=== PATIENT | female | born 1940 | race Caucasian/White ===

== ENCOUNTER → 2017-11-04 17:12 | Outpatient (CLI) | payer MEDICARE, OTHER, SELFPAY | PROVIDERS: Family Provider Family Medicine; PCP Family Medicine; Visit Provider Nurse Practitioner Women's Health | DX: N89.8 Other specified noninflammatory disorders of vagina (principal); N94.9 Unspecified condition associated with female genital organs and menstrual cycle | CPT/HCPCS: 87086; 87088; 87186 ==

== ENCOUNTER → 2017-11-26 09:52 | Outpatient (CLI) | payer MEDICARE, OTHER, SELFPAY ==
--- NOTE | 2017-11-26 09:52 | DT_ITS ---
This patient was seen during an EMR downtime November 23, 2017 - November 30, 2017. This patient may have a combination of paper and electronic documentation or all paper documentation. All documentation is viewable within the e-chart portion of [facility] for each patient visit.
== END ==
PROVIDERS: Family Provider Family Medicine; PCP Family Medicine; Visit Provider Nurse Practitioner Women's Health
DX: N39.0 Urinary tract infection, site not specified (principal)
CPT/HCPCS: 87086; 87088

== ENCOUNTER → 2017-12-02 11:19 | Outpatient (CLI) | payer MEDICARE, OTHER, SELFPAY | PROVIDERS: Visit Provider Nurse Practitioner Women's Health | DX: R10.2 Pelvic and perineal pain (principal) | CPT/HCPCS: 87086; 87088 ==

== ENCOUNTER → 2017-12-07 13:03 | Outpatient (CLI) | payer MEDICARE, OTHER, SELFPAY ==
--- NOTE | 2017-12-07 13:04 | US_ITS ---
STUDY: ULTRASOUND TRANSVAGINAL CLINICAL: Female, 77 years old. Pelvic pain, recent chronic urinary tract infections, pessary placement. Postmenopausal. TECHNIQUE: Transabdominal and transvaginal pelvic ultrasound. COMPARISON: None. FINDINGS: The transvaginal scan is partially obscured by the pessary. The uterus is retroverted, measures 6.9 x 4.4 x 5.0 cm, with 2 suspected small fibroid measuring 2.9 and 3.2 cm respectively. Endometrium 4 mm maximum thickness, normal echotexture. No suspicious features. Normal cervix. Right ovary 28 x 24 x 15 mm, appropriate vascular flow. Right ovarian simple appearing follicular cyst measuring 18 x 12 x 12 mm. No right adnexal mass, suspicious cyst, or free fluid. The left ovary measures 32 x 30 x 21 mm, normal echotexture with appropriate Doppler flow. No left adnexal mass, suspicious cyst or free fluid. No cul-de-sac free fluid. US/Pelvic (Non ) IMPRESSION: Small uterine fibroids. Normal endometrium. 18 x 12 mm follicular right ovarian cyst with simple cystic features. Atypical for the patient's age but with indolent features. Surveillance imaging would be appropriate, follow-up transabdominal ultrasound 3 months initially. No other acute intra-abdominal process is evident. Electronically Signed: Andres Hua, at 15:44 EDT Tel , Service support ,
--- NOTE | 2017-12-07 13:04 | US_ITS ---
STUDY: ULTRASOUND TRANSVAGINAL CLINICAL: Female, 77 years old. Pelvic pain, recent chronic urinary tract infections, pessary placement. Postmenopausal. TECHNIQUE: Transabdominal and transvaginal pelvic ultrasound. COMPARISON: None. FINDINGS: The transvaginal scan is partially obscured by the pessary. The uterus is retroverted, measures 6.9 x 4.4 x 5.0 cm, with 2 suspected small fibroid measuring 2.9 and 3.2 cm respectively. Endometrium 4 mm maximum thickness, normal echotexture. No suspicious features. Normal cervix. Right ovary 28 x 24 x 15 mm, appropriate vascular flow. Right ovarian simple appearing follicular cyst measuring 18 x 12 x 12 mm. No right adnexal mass, suspicious cyst, or free fluid. The left ovary measures 32 x 30 x 21 mm, normal echotexture with appropriate Doppler flow. No left adnexal mass, suspicious cyst or free fluid. No cul-de-sac free fluid. US/Transvaginal Non- IMPRESSION: Small uterine fibroids. Normal endometrium. 18 x 12 mm follicular right ovarian cyst with simple cystic features. Atypical for the patient's age but with indolent features. Surveillance imaging would be appropriate, follow-up transabdominal ultrasound 3 months initially. No other acute intra-abdominal process is evident. Electronically Signed: Andres Hua, at 15:44 EDT Tel , Service support ,
== END ==
PROVIDERS: Family Provider Family Medicine; PCP Family Medicine; Visit Provider Nurse Practitioner Women's Health
DX: R10.2 Pelvic and perineal pain (principal); Z92.89 Personal history of other medical treatment
CPT/HCPCS: 76830; 76856

== ENCOUNTER → 2018-01-12 16:31 | Outpatient (CLI) | payer MEDICARE, OTHER, SELFPAY | PROVIDERS: Family Provider Family Medicine; PCP Family Medicine; Visit Provider Obstetrics & Gynecology | DX: R10.2 Pelvic and perineal pain (principal); G89.29 Other chronic pain | CPT/HCPCS: 87086; 87088 ==

== ENCOUNTER → 2018-01-29 07:30 | Outpatient (CLI) | payer MEDICARE, OTHER, SELFPAY ==
--- NOTE | 2018-01-29 07:33 | US_ITS ---
STUDY: ULTRASOUND OF THE FEMALE PELVIS - COMPLETE REASON FOR EXAM: Female, 77 years old. Ovarian cyst TECHNIQUE: Transabdominal and Transvaginal TECHNICAL QUALITY: Adequate. COMPARISON: None. FINDINGS: The uterus is retroflexed and is in a midline position. The uterus measures 7.6 x 6.2 x 4.5 cm. There is a tiny nabothian cyst. The endometrium measures 2.5 mm in thickness, and is hyperechoic. There is no demonstrated endometrial mass. There are at least 2 hypoechoic lesions within the anterior uterine body measuring up to 2.3 cm. No I.U.D. - The right ovary is visualized. The right ovary measures 2.3 x 2.4 x 1.8 cm. There is a 1.4 cm anechoic lesion associated with the right ovary. There is also a 4 mm calculus within the ovary. There is normal arterial and normal venous vascularity. The left ovary is not visualized. No left adnexal mass. There is no fluid in the cul-de-sac. The pre void volume of the bladder was 337 ml. Polycystic ovary disease: No. US/Transvaginal Non- IMPRESSION: 1. Intramural fibroids of the anterior uterine body wall measuring up to 2.3 cm. 2. 1.9 cm simple appearing right ovarian cyst. 3. 4 mm calcification within the right ovary. Electronically Signed: Christiano Ziegler MD at 1:06 EDT Tel , Service support ,
--- NOTE | 2018-01-29 07:33 | US_ITS ---
STUDY: ULTRASOUND OF THE FEMALE PELVIS - COMPLETE REASON FOR EXAM: Female, 77 years old. Ovarian cyst TECHNIQUE: Transabdominal and Transvaginal TECHNICAL QUALITY: Adequate. COMPARISON: None. FINDINGS: The uterus is retroflexed and is in a midline position. The uterus measures 7.6 x 6.2 x 4.5 cm. There is a tiny nabothian cyst. The endometrium measures 2.5 mm in thickness, and is hyperechoic. There is no demonstrated endometrial mass. There are at least 2 hypoechoic lesions within the anterior uterine body measuring up to 2.3 cm. No I.U.D. - The right ovary is visualized. The right ovary measures 2.3 x 2.4 x 1.8 cm. There is a 1.4 cm anechoic lesion associated with the right ovary. There is also a 4 mm calculus within the ovary. There is normal arterial and normal venous vascularity. The left ovary is not visualized. No left adnexal mass. There is no fluid in the cul-de-sac. The pre void volume of the bladder was 337 ml. Polycystic ovary disease: No. US/Pelvic (Non ) IMPRESSION: 1. Intramural fibroids of the anterior uterine body wall measuring up to 2.3 cm. 2. 1.9 cm simple appearing right ovarian cyst. 3. 4 mm calcification within the right ovary. Electronically Signed: Christiano Ziegler MD at 1:06 EDT Tel , Service support ,
== END ==
PROVIDERS: Family Provider Family Medicine; PCP Family Medicine; Visit Provider Obstetrics & Gynecology
DX: N83.209 Unspecified ovarian cyst, unspecified side (principal)
CPT/HCPCS: 76830; 76856

== ENCOUNTER 2018-06-09 14:17 | Inpatient (IN) | payer MEDICARE, OTHER, SELFPAY ==
--- NOTE | 2018-06-02 10:14 | RAD_ITS ---
STUDY: X-RAY CHEST REASON FOR EXAM: Female, 77 years old. Preoperative evaluation. TECHNIQUE: PA and lateral views of the chest. COMPARISON: None. FINDINGS: Hyperinflation. There is no demonstrated pleural abnormality. Normal size heart. Normal mediastinum and hailey. Normal visualized pulmonary arteries. There is atherosclerotic calcification of the aortic arch with tortuosity. There is demineralization of the osseous structures. Normal visualized ribs, clavicles, and shoulders. There is no demonstrated abnormality of the visualized soft tissue structures of the upper abdomen. RAD/Chest PA and Lateral IMPRESSION: Hyperinflation. Electronically Signed: Niko Carrasquillo MD at 10:30 EST Tel [phone], Service support ,
--- NOTE | 2018-06-02 10:17 | EKG12_ITS ---
Test Reason : PRE-OP Blood Pressure : / mmHG Vent. Rate : 063 BPM Atrial Rate : 063 BPM P-R Int : 180 ms QRS Dur : 094 ms QT Int : 394 ms P-R-T Axes : 022 -35 -01 degrees QTc Int : 403 ms Sinus rhythm with Premature supraventricular complexes Left axis deviation Incomplete right bundle branch block Abnormal ECG Confirmed by REGLA ALEJO, CONNOR ([id number]), editor managing newspaper RIKKI FRENCH ([id number]) on 06/04/2018 9:56:15 AM Referred By: Elis Carrero Confirmed By:CONNOR ARAUZ MD
[2018-06-02 11:23] LABS: Hemoglobin 13.5 g/dl (12.0-15.0); Mean Corp Hgb Conc 32.9 g/gl (32-36); Mean Corpuscular Hgb 30.5 pg (27.0-32.0); Mean Corpuscular Volume 92.8 fL (81-99); Mean Platelet Vol. 11.7 fl (6.2-12.0); Platelet Count 205 K/mm3 (150-450); RBC Distribution Width SD 45.9 fl (35.1-43.9); Red Blood Count 4.42 M/mm3 (4.2-5.4); White Blood Count 3.7 K/mm3 (4.4-11.0)
[2018-06-02 11:23] LABS: Color, Urine SEE COMMENT BELOW (Yellow); Glucose, Dipstick Normal (Normal); Ketone-Dipstick Negative (Negative); Leukocyte Esterase-Dipstick Negative /ul (Negative); Nitrite-Dipstick Negative (Negative); Occult Blood-Urine Negative /ul (Negative); Protein-Dipstick Negative (Negative); Urine Bilirubin Dipstick Negative (Negative); Urine Clarity Clear (Clear); Urine Urobilinogen Normal (Normal); Urine pH 6.5 (5.0 - 8.0)
[2018-06-02 11:26] LABS: Scan Indicated on CBC? Y/N NO
[2018-06-02 11:49] LABS: Anion Gap 4 (5-15); BUN 15 mg/dL (7-18); BUN/Creat Ratio 21.8 RATIO (10-20); Calcium,Total 8.9 mg/dL (8.5-10.1); Chloride 106 mmol/L (98-107); Creatinine, Serum 0.69 mg/dL (0.55-1.02); EST Glomerular Filtration Rate 88 mL/min (>60); Est Glom Filt Rate - Afr Amer 107 mL/min (>60); Glucose 86 mg/dL (74-106); Potassium 3.7 mmol/L (3.5-5.1); Sodium Level 139 mmol/L (136-145)
[2018-06-03 10:30] VITALS: BMI 28.8
[2018-06-08] VITALS (15 sets, daily range): BP systolic 84–140; BP diastolic 57–79; PULSE 65–84; RESP 14–18; TEMP 36.2–37.1; O2SAT 92–100; BMI 28.0; BMI 27.8
[2018-06-08] MEDS: Phenazopyridine 95 MG Tablet 190 MG PO (06:28)
[2018-06-08] MEDS: Ciprofloxacin 400 MG/200 ML BAG 200 MG IV (06:45)
--- NOTE | 2018-06-08 07:30 | UT_PTH ---
PATIENT: CLAIRE HEADLEY LOC: MS2 U#:[id number] AGE/SX: 77/F ROOM: [facility] [place] RE06/09/[address]: Dr. Elis Carrero MD : [id number] BED: 1 DIS: 06/10/2018 SPEC #: [id number] RECD: 06/08/18 15:05 STATUS: MEENAKSHI REQ #: [id number] CARLA: 06/08/18 07:[address]: Lizbeth Bill DEPT: SURGICAL PATHOLOGY RECD BY: Aramis Julien ENTERED: 06/09/18 10:10 SP TYPE: UTERUS OTHR DR: DO Dr. Elis Batista MD Dr. Sharon Marcanthony, MD Tissues: Uterus, NOS Procedures: Surgery Specimen Level V Comments: @ Ordering doctor for SUV edited from to @ by RGOOD at 06/09/18 1435 @ Submitting doctor edited from to @ by RGOOD at 06/09/18 1435 HEADER OPERATION: Hysterectomy, vaginal, total, bilateral salpingo-oophorectomy PRE-OP DIAGNOSIS: Cystocele midline; incomplete ureterovaginal prolapse; right ovarian cyst; rectocele; postmenopausal atrophic vaginitis; lower abdominal pain; atrophy of vulva; retention of urine TISSUE SUBMITTED: Uterus, ovaries, fallopian tubes MICROSCOPIC DIAGNOSIS Uterus, hysterectomy: Cervix - nabothian cysts and mild chronic inflammation. Endometrium - inactive with cystic change. Myometrium - extensive adenomyosis and leiomyomas with degenerative change. Right and left fallopian tubes - no pathologic change. 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 AM:taras 06/10/18 COMMENT Case has been reviewed in consultation with Dr. Arboleda who concurs with the above diagnosis. IDC:SJ MICROSCOPIC DESCRIPTION Slides are reviewed. GROSS DESCRIPTION Received in fixative is one container labeled with the patient's name and designated uterus, ovaries, fallopian tubes. The specimen consists of a hysterectomy specimen consisting of uterus with cervix, detached bilateral fallopian tubes and detached bilateral ovaries. The uterus with cervix weighs 88 gm and measures 10 x 5 x 5 cm. The body of the uterus is deformed. The serosal surface is horner, glistening. The ectocervical mucosa is unremarkable. The external os is circular in contour. The endocervical canal measures 2.5 cm in length and the endocervical mucosa is horner, glistening and unremarkable. The endometrial cavity is compressed to one side and measures 3.5 cm in length and up to 0.5 cm in width. The endometrium is without any mass lesion and measures <0.1 cm in thickness. Most of the endometrial cavity appears to be completely obliterated. Sections of the myometrial wall reveal multiple ill-defined nodular masses suspicious for adenomyosis and a few well-defined nodular masses with the largest mass measuring 1 cm in greatest dimension. The bilateral fallopian tubes are not identified as right or left and measures 3.5 cm in length and 0.5 cm in diameter and 2 cm in length and 0.5 cm in diameter. The fimbrial end is identified. The detached bilateral ovaries are not identified as right or left and measures 2.5 x 1 x 1 cm and 4.5 x 2 x 1.5 cm. Both ovaries show suture material. Sections of the smaller ovary do not reveal any mass lesion. Sections of the larger ovary show it is completely replaced by a hemorrhagic cyst. Housing Director sections are submitted in 12 cassettes as follows: 1 - anterior cervix, 2 - posterior cervix, 3 & 4 - anterior uterine wall, 5 & 6 - posterior uterine wall, sections of the uterine wall also contain ill-defined nodular masses, 7 - well-defined nodular masses, 8 & 9 - bilateral fallopian tubes with each cassette contain one fallopian tube, entirely submitted, 10 - smaller ovary, entirely submitted, 11 & 12 - larger ovary. / CARMEN:taras 06/09/18 TC:1 CPT: 09942
--- NOTE | 2018-06-08 07:37 | PCM.OPRPT ---
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 pyridium given and discussed avoidance of foods (4) Atrophic vaginitis Status: Chronic Comment: has used vaginal estrogen in past. 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 Comment: hyst scheduled with radha Report of Operation Date of Procedure: 06/08/18 Pre-Operative Diagnosis: prolapse Post-Operative Diagnosis: same Surgery/Procedure Performed:: tvh bso Description of Surgical Findings:: cystocele rectocele microelectronics engineer: Juan Frances microelectronics engineer: Elis Garcia Type of Anesthesia:: General Special Medications: gurvinder Specimen's removed: uterus tubes ovaries Drains: jackson Estimated Blood Loss (mL): 100 Fluids Replaced: crystalloid Description of Procedure: Patient was taken to the operating room and was placed under general anesthesia was prepped and draped in normal sterile fashion in the dorsal lithotomy position. Preoperative antibiotics and SCDs. Weighted speculum was placed in the vagina and the anterior and posterior lip of the cervix was grasped with 2 Logan clamps and circumferentially injected with dilute vasopressin. A circumferential incision was made with a scalpel and the posterior cul-de-sac was entered into sharply and a longneck speculum was placed. The anterior cul-de-sac was also dissected down and entered into sharply and the uterosacral ligaments were clamped cut and suture ligated bilaterally followed by the cardinal ligaments which were Clamped cut and suture ligated bilaterally with 0 Monocryl. The uterus serially descended and progressive bites were taken bilaterally up to the level of the utero-ovarian ligament bilaterally which was clamped transected and double ligated with 0 Monocryl suture and 0 Vicryl free tie. jackson catheter was placed in the bladder and orange colored urine was noted in the tubing without any air or blood present. Bilateral fallopian tubes and ovaries were well visualized and noted be within normal limits and the bilateral fallopian tubes and ovaries were transected across the base of the infundibulopelvic ligaments with a Cristal clamp and removed and sutured with 0 Vicryl suture. a raw appearance to the bladder was noted and it was treated with gurvinder. The vagina was closed with [id number] 0 Vicryl pop offs including the posterior and anterior peritoneum in the reapproximation. Excellent hemostasis was noted. Please see additional operative note by Dr. garcia for any additional surgery details. Grafts/Implants Used: none - Complications none - Admit VTE Documentation VTE Present on Admission: No VTE Mechan Device Prophylaxis: SCD's
--- NOTE | 2018-06-08 07:43 | OP.PCM_ITS ---
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 pyridium given and discussed avoidance of foods (4) Atrophic vaginitis Status: Chronic Comment: has used vaginal estrogen in past. 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 Comment: hyst scheduled with radha Report of Operation Date of Procedure: 06/08/18 Pre-Operative Diagnosis: prolapse Post-Operative Diagnosis: same Surgery/Procedure Performed:: tvh bso Description of Surgical Findings:: cystocele rectocele insurance sales producer: Juan Frances insurance sales producer: Elis Garcia Type of Anesthesia:: General Special Medications: gurvinder Specimen's removed: uterus tubes ovaries Drains: jackson Estimated Blood Loss (mL): 100 Fluids Replaced: crystalloid Description of Procedure: Patient was taken to the operating room and was placed under general anesthesia was prepped and draped in normal sterile fashion in the dorsal lithotomy position. Preoperative antibiotics and SCDs. Weighted speculum was placed in the vagina and the anterior and posterior lip of the cervix was grasped with 2 Logan clamps and circumferentially injected with dilute vasopressin. A circumferential incision was made with a scalpel and the posterior cul-de-sac was entered into sharply and a longneck speculum was placed. The anterior cul-de-sac was also dissected down and entered into sharply and the uterosacral ligaments were clamped cut and suture ligated bilaterally followed by the cardinal ligaments which were Clamped cut and suture ligated bilaterally with 0 Monocryl. The uterus serially descended and progressive bites were taken bilaterally up to the level of the utero-ovarian ligament bilaterally which was clamped transected and double ligated with 0 Monocryl suture and 0 Vicryl free tie. jackson catheter was placed in the bladder and orange colored urine was noted in the tubing without any air or blood present. Bilateral fallopian tubes and ovaries were well visualized and noted be within normal limits and the bilateral fallopian tubes and ovaries were transected across the base of the infundibulopelvic ligaments with a Cristal clamp and removed and sutured with 0 Vicryl suture. a raw appearance to the bladder was noted and it was treated with gurvinder. The vagina was closed with [id number] 0 Vicryl pop offs including the posterior and anterior peritoneum in the reapproximation. Excellent hemostasis was noted. Please see additional operative note by Dr. garcia for any additional surgery details. Grafts/Implants Used: none - Complications none - Admit VTE Documentation VTE Present on Admission: No VTE Mechan Device Prophylaxis: SCD's
--- NOTE | 2018-06-08 07:51 | DCINST_ITS ---
Discharge Diet: No Restrictions Discharge Activity: Return to Normal Activity, May Not Drive, May Shower May resume sexual activity in: 6-8 weeks Call your doctor if your incision/area has: Continuous Slow Oozing, Sudden Increased Bleeding, Increased Pain/ Swelling, Increased Redness, Foul Smelling Discharge Call your doctor if you observe: Fever of 101 or Higher, Inability to urinate, Inability to have a bowel movement, Using more than one pad per hour Allergies/Adverse Reactions: Allergies cephalexin [From Keflex] Allergy (Verified 06/01/18 09:56) Swelling cephaeline Adverse Reaction (Unknown, Verified 05/10/18 11:19) did not work Medications to take at Discharge cholecalciferol (vitamin D3) 1,000 unit capsule 1,000 unit PO QDAY 10/14/17 meclizine 25 mg tablet 25 mg PO ONCE PRN 10/14/17 estradiol 0.01% (0.1 mg/gram) vaginal cream 2 g VAGINAL DAILY 03/03/18 Amlodipine Besylate [Norvasc] 5 mg PO QHS 06/01/18 Docusate Sodium [Colace] 100 mg PO QHS 06/01/18 Omeprazole 20 mg PO QHS 06/01/18 Phenazopyridine [Pyridium] 100 mg PO DAILY PRN 06/01/18 Naproxen [Naprosyn] 250 - 500 mg PO Q8H PRN PRN #30 tablet 06/08/18 Oxycodone HCl/Acetaminophen [Percocet 5-325] 1 - 2 tablet PO Q4H PRN PRN 7 Days #15 tablet 06/08/18 valsartan 160 mg-hydrochlorothiazide 12.5 mg tablet 2 tab PO DAILY 06/08/18 The following prescriptions were given: Oxycodone HCl/Acetaminophen [Percocet 5-325] 1 - 2 tablet PO Q4H PRN PRN 7 Days #15 tablet PRN Reason: Pain Naproxen [Naprosyn] 250 - 500 mg PO Q8H PRN PRN #30 tablet PRN Reason: MILD PAIN Primary Care Physician: Jose Rodarte DO [Primary Care Provider] - Test Results: Test results from this visit will be discussed in further detail at your follow- up appointment, if applicable. Please Follow Up With: Lizbeth Bill MD - [phone]
[2018-06-08] MEDS: Lubricating Jelly 60 GM Tube 30 GM TOPICAL (08:00)
[2018-06-08] MEDS: Vasopressin 20 UNITS/ML Vial (10:00)
[2018-06-08] MEDS: Methylene Blue 1% 100 MG/10 ML VIAL (10:28)
[2018-06-08] MEDS: Estrogens,Conj. 1 Tube 1 DOSE (10:38)
--- NOTE | 2018-06-08 11:25 | PCM.IMDPSTOP ---
Immediate Post-Op Note Date of Procedure: 06/08/18 Primary Surgeon/Physician: Elis Carrero MD urban gardening specialist: Svitlana - abigail urban gardening specialist: Juan Frances urban gardening specialist: Lizbeth Bill Pre-Operative Diagnosis: cystocele, rectocele, urethral hypermobility, uterine prolapse. Post-Operative Diagnosis: same Surgery/Procedure Performed:: anterior and posterior repair, right sacrospinous ligament fixation, Altis midurethral sling, cystoscopy. Description of Surgical Findings:: no complications. short vault length at conclusion. bilateral ureteral jets observed, both UO's very small. Estimated Blood Loss: 150cc Specimen's removed: uterus tubes ovaries per Drains: jackson Type of Anesthesia:: General - Admit VTE Documentation VTE Present on Admission: Yes VTE Mechan Device Prophylaxis: SCD's VTE Pharm Prophylaxis ordered?: Yes
--- NOTE | 2018-06-08 11:28 | OP.PN_ITS ---
Immediate Post-Op Note Date of Procedure: 06/08/18 Primary Surgeon/Physician: Elis Carrero MD environmental test technician: Svitlana - abigail environmental test technician: Juan Frances environmental test technician: Lizbeth Bill Pre-Operative Diagnosis: cystocele, rectocele, urethral hypermobility, uterine prolapse. Post-Operative Diagnosis: same Surgery/Procedure Performed:: anterior and posterior repair, right sacrospinous ligament fixation, Altis midurethral sling, cystoscopy. Description of Surgical Findings:: no complications. short vault length at conclusion. bilateral ureteral jets observed, both UO's very small. Estimated Blood Loss: 150cc Specimen's removed: uterus tubes ovaries per Drains: jackson Type of Anesthesia:: General - Admit VTE Documentation VTE Present on Admission: Yes VTE Mechan Device Prophylaxis: SCD's VTE Pharm Prophylaxis ordered?: Yes
--- NOTE | 2018-06-08 12:48 | OP.PCM_ITS ---
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 Post-Operative Diagnosis: same Surgery/Procedure Performed:: anterior and posterior repair, right sacrospinous ligament fixation, Altis midurethral sling, cystoscopy. Description of Surgical Findings:: no complications. short vault length at conclusion. bilateral ureteral jets observed, both UO's very small. tariff supervisor: Lizbeth Bill tariff supervisor: Lizbeth Bill Type of Anesthesia:: General Specimen's removed: uterus tubes ovaries per Drains: jackson Estimated Blood Loss (mL): 150cc Description of Procedure: The patient is a 77-year-old female who presented to the office in search of surgical intervention for her pelvic organ prolapse. All risks benefits and alternatives were discussed. She underwent preoperative testing including cystoscopy and urodynamics in the office. The details of the procedure were discussed and she agreed to proceed. The patient was taken to the operating room and placed on the operating room table. Anesthesia monitored the head, neck, airway, IV access, vital signs throughout the case. Once anesthesia was appropriately administered the patient was prepped and draped in usual sterile fashion. She was in supine dorsal lithotomy and Trendelenburg position. All dependent portions of her body were appropriately padded. The hysterectomy and bilateral salpingo-oophorectomy was performed by Dr. Tray Castellanos. Please see her dictation for full details. Following closure of the vaginal cuff, the case was turned over to me. The patient had an indwelling 16 Polish Jackson catheter in her bladder was empty. The anterior vaginal wall was short in length as was the sterile vaginal wall. I decided to proceed with apical support with sacral spinous ligament fixation in conjunction with the anterior and posterior repairs. A midline incision was made following distention with vasopressin for hydrostatic dissection and hemostatic control. Both sharp and blunt dissection ensued on the right side until the ischial spine was palpable in the sacral spinous ligament was freed from surrounding tissues. The ureter was palpable on the side of the patient's pelvis close to the spine. Care was taken when passing the Capio Ethibond suture to avoid this structure. The Capio suture was then brought out through the apical anterior vaginal wall. The anterior defect was closed in 2 layers with 2-0 vicryl interrupted sutures in the pubocervical fascia. The midline incision was closed in running interlocking fashion with 2-0 vicryl. Attention was turned to the posterior vaginal wall. It was injected submucosally with vasopressin and both sharp and blunt dissection was used to identify and isolate the rectovaginal fascia bilaterally. This was then brought together and 2 layer closure using 2-0 Vicryl suture. The midline incision was once again closed using running interlocking 2-0 Vicryl. The mid urethra was then identified and submucosally injected. A midline vertical incision approximately 1.5 cm in length was then made and both sharp and blunt dissection was performed bilaterally to open up the periurethral space. Using the trochars the Altis mid urethral sling was inserted without difficulty bilaterally. The sling was flat and had good tissue coaptation without pressure. The midline incision was closed using running interlocking 2-0 Vicryl. The Jackson catheter was removed and a cystourethroscopy was performed. There were no incisions or foreign bodies within the urinary bladder or urethra. There is no mesh within the urinary bladder or urethra. Bilateral ureteral orifices were very extremely small almost pinpoint in size. Ureteral jets with Pyridium stained urine were visualized bilaterally. At this time the scope was removed and the Jackson catheter was reinserted. The vagina was packed with Premarin cream and vaginal packing. The patient was awakened taken to the recovery room in good condition. There were no complications during this procedure. Grafts/Implants Used: Altis midurethral sling - Complications none - Admit VTE Documentation VTE Present on Admission: Yes VTE Mechan Device Prophylaxis: SCD's VTE Pharm Prophylaxis ordered?: Yes
[2018-06-08] MEDS: HYDROmorphone 1 MG/ML Syringe IV (13:53)
[2018-06-08] MEDS: 0.9% NaCl Peripheral Flush Adult/Peds IV ×2 (13:53→17:29)
--- NOTE | 2018-06-08 14:36 | NURSING ---
CONTINUOUS SPO2 APPLIED AT TIME OF ARRIVAL TO UNIT PER THIS RN- DUE TO + STOP SCORE.
[2018-06-08] MEDS: Dextrose 5%-Lactated Ringers 1,000 ML 100 ML IV (15:12)
[2018-06-08] MEDS: Enoxaparin 40 MG/0.4 ML Syringe SC (15:14)
[2018-06-08] MEDS: Ketorolac 15 MG/ML Vial IV (17:28)
[2018-06-08] MEDS: Smz/Tmp Ds Tablet 1 TABLET PO (17:28)
[2018-06-08] MEDS: Losartan Potassium 50 MG Tablet PO (21:19)
[2018-06-08] MEDS: Acetaminophen 500 MG Tablet 1000 MG PO (21:19)
[2018-06-08] MEDS: amLODIPine 5 MG Tablet PO (21:19)
[2018-06-08] MEDS: Docusate Sodium 100 MG Capsule PO (21:19)
[2018-06-08] MEDS: oxyCODONE 5 MG Tablet PO (21:20)
[2018-06-08] MEDS: Pantoprazole Sodium 20 MG Tablet PO (22:20)
[2018-06-09] VITALS (7 sets, daily range): BP systolic 99–120; BP diastolic 60–78; PULSE 70–80; RESP 14–18; TEMP 36.8–36.9; O2SAT 92–96
[2018-06-09] MEDS: Ketorolac 15 MG/ML Vial IV ×5 (00:46→23:23)
[2018-06-09] MEDS: Dextrose 5%-Lactated Ringers 1,000 ML 100 ML IV ×3 (00:48→22:43)
[2018-06-09] MEDS: oxyCODONE 5 MG Tablet PO ×2 (02:55→22:43)
[2018-06-09 06:53] LABS: Hematocrit 32.9 % (37-47); Hemoglobin 10.8 g/dl (12.0-15.0); Mean Corp Hgb Conc 32.8 g/gl (32-36); Mean Corpuscular Hgb 30.4 pg (27.0-32.0); Mean Corpuscular Volume 92.7 fL (81-99); Mean Platelet Vol. 11.8 fl (6.2-12.0); Platelet Count 163 K/mm3 (150-450); RBC Distribution Width CV 13.8 % (11.6-14.6); Red Blood Count 3.55 M/mm3 (4.2-5.4); White Blood Count 6.9 K/mm3 (4.4-11.0)
[2018-06-09 06:56] LABS: Scan Indicated on CBC? Y/N NO
[2018-06-09] MEDS: Smz/Tmp Ds Tablet 1 TABLET PO ×2 (08:21→18:29)
[2018-06-09] MEDS: Enoxaparin 40 MG/0.4 ML Syringe SC (09:55)
[2018-06-09] MEDS: 0.9% NaCl Peripheral Flush Adult/Peds IV ×3 (12:06→18:29)
--- NOTE | 2018-06-09 12:27 | NURSING ---
Julien and packing removed this AM 0600. Intake of PO fluid not adequate. Pt advised to increase PO intake and has been attempting to do so- however, still not able to urinate. Pt has not been able to urinate at this point. Pt also c/o pain to left thigh- states that it is her sciatica and that it flares up on occasion and that in the past it has delayed urination and bowels from moving. Will continue to monitor.
--- NOTE | 2018-06-09 12:38 | PCM.PN.GU ---
Physical Exam Subjective: Sitting up in chair, sipping liquid broth. Was nauseated after breakfast. Hasn't been able to void yet, 5hrs in to her trial of void. Still with lower abdominal discomfort that is likely unrelated to intervention as present for several months. C/O sciatica pain on the left side. No flank pain. - Physical Exam Vital Signs Temp 98.3 F 06/09/18 08:07 Pulse 72 06/09/18 08:07 Resp 18 06/09/18 08:07 BP 99/61 06/09/18 08:07 Pulse Ox 94 06/09/18 08:07 Intake & Output 06/07/18 06/08/18 06/09/18 23:59 23:59 23:59 Intake Total 2608 / 2608 2223 / 2223 Output Total 390 / 390 1000 / 1000 Balance 2218 / 2218 1223 / 1223 Weight: 74.1 kg Intake: Oral 150 / 150 1000 / 1000 IV fluid/meds 2458 / 2458 1223 / 1223 IV #3 2100 / 2100 Output: Urine 390 / 390 1000 / 1000 General: Alert, Oriented x3, Cooperative, No apparent distress HEENT: Atraumatic, Normocephalic Oral: Moist Mucosa Neck: Trachea Midline Lungs: Normal air movement Abdomen: Soft Rectal: Exam deferred Skin: No rashes Neurological: Cranial nerves II-XII grossly intact, Neuro grossly intact Psych/Mental Status: Normal Affect Laboratory Tests Past 24 Hrs 06/09/18 06:28 WBC 6.9 RBC 3.55 L Hgb 10.8 L Hct 32.9 L MCV 92.7 MCH 30.4 MCHC 32.8 RDW 13.8 RDW Differential 45.0 H Plt Count 163 MPV 11.8 Medical Necessity - Tobacco Use Smoking Status: Never smoker Assessment/Plan All Active Problems (Last Reviewed 06/03/18 @ 12:46 by Jose Rodarte, DO) Urethral hypermobility (Acute) Bladder prolapse (Acute) Vaginal pessary in situ (Acute) Bladder scan now, jackson if greater than 250cc. IF needs jackson, will try for trial of void with jackson out tomorrow night. Continue ambulation. Zofran for nausea, home only after tolerating PO appropriately. Keep fluids until tolerating PO.
--- NOTE | 2018-06-09 17:08 | PCM.PN.OB ---
Patient Problems: Active and Suspected Problems (Last Reviewed 06/03/18 @ 12:46 by Jose Rodarte DO) Urethral hypermobility (Acute) Subjective: poatient seen at 8 am - pain controlle dno cp sob nv little po intake - Physical Exam General: Alert, Oriented x3 Vital Signs Temp Pulse Resp BP Pulse Ox 98.3 F 75 14 112/67 92 06/09/18 13:44 06/09/18 13:44 06/09/18 13:44 06/09/18 13:44 06/09/18 13:44 Oxygen Flow Rate (L/min) 2 Oxygen Delivery Method Room Air Weight: 163 lb 5.8 oz Body Mass Index (BMI) 27.8 Intake and Output for Last 24 Hours 06/07/18 06/08/18 06/09/18 23:59 23:59 23:59 Intake Total 2608 / 2608 2223 / 2223 Output Total 390 / 390 1000 / 1000 Balance 2218 / 2218 1223 / 1223 Laboratory Tests Past 24 Hrs 06/09/18 06:28 WBC 6.9 RBC 3.55 L Hgb 10.8 L Hct 32.9 L MCV 92.7 MCH 30.4 MCHC 32.8 RDW 13.8 RDW Differential 45.0 H Plt Count 163 MPV 11.8 Medical Necessity - Tobacco Use Smoking Status: Never smoker Assessment/Plan All Active Problems (Last Reviewed 06/03/18 @ 12:46 by Jose Rodarte DO) Urethral hypermobility (Acute) Bladder prolapse (Acute) Vaginal pessary in situ (Acute) s/p TVH BSO pelvic support repair routine care ambulate, oral pain control bladder restrictions per urogyn
[2018-06-09] MEDS: Docusate Sodium 100 MG Capsule PO (22:44)
[2018-06-09] MEDS: amLODIPine 5 MG Tablet PO (22:44)
[2018-06-09] MEDS: Pantoprazole Sodium 20 MG Tablet PO (22:44)
[2018-06-10 01:42] VITALS: BP 100/63; PULSE 65; RESP 16; TEMP 36.8; O2SAT 97
[2018-06-10 06:08] LABS: Anion Gap 6 (5-15); BUN 7 mg/dL (7-18); BUN/Creat Ratio 9.4 RATIO (10-20); Chloride 107 mmol/L (98-107); Creatinine, Serum 0.75 mg/dL (0.55-1.02); EST Glomerular Filtration Rate 80 mL/min (>60); Est Glom Filt Rate - Afr Amer 97 mL/min (>60); Estimated Creatinine Clearance 41.97 ml/min; Glucose 98 mg/dL (74-106); Potassium 3.3 mmol/L (3.5-5.1); Sodium Level 143 mmol/L (136-145)
[2018-06-10] MEDS: Ketorolac 15 MG/ML Vial IV (06:12)
[2018-06-10] MEDS: 0.9% NaCl Peripheral Flush Adult/Peds IV ×2 (06:13→06:25)
[2018-06-10 06:58] VITALS: O2SAT 97
[2018-06-10 08:55] VITALS: BP 108/67; PULSE 87; RESP 16; TEMP 36.6; O2SAT 92
[2018-06-10] MEDS: Smz/Tmp Ds Tablet 1 TABLET PO (09:12)
[2018-06-10] MEDS: Enoxaparin 40 MG/0.4 ML Syringe SC (09:13)
[2018-06-10] MEDS: Acetaminophen 500 MG Tablet 1000 MG PO (09:21)
--- NOTE | 2018-06-10 11:30 | CASEMGMT ---
EMILY SOLANO ASSESSMENT Face to Face with patient for initial transition planning/care coordination assessment. EMILY SOLANO introduced self and role at [facility]. Pt voices understanding and consents to assessment at this time. Pt resting in bed in no distress at this time. Pt is A/O at this time and answers all questions appropriately. Care providers, pharmacy, and demographics verified/updated at this time. PCP: Jose Rodarte Preferred Pharmacy: [facility], [facility] Retail pharmacy on day of d/c only. Insurance: [employer], Other commercial insurance Prescription Benefit: [employer] Living Will/HPOA: Has both LW and HCPOA, which is her , Chucky Bearden. Living Arrangements: Lives in one story home with her and son, Deo. States one-step to enter. States house has a basement but that she does not go down them. States she is independent with ADL's and home mgmt tasks. Transportation: Pt states drives self and states no transportation concerns at this time. can assist with transportation if needed. DME: has a hand-held shower but no other DME. States she has chronic back problems and feels she would be safer using a walker and states would like to get one. HHC/SNF: Pt has never used HHC or been to a SNF. States has went to [facility] in the past. Pt is interested in HHC. Explained must be homebound and that she would not qualify for HHC d/t she is not homebound. Pt voices understanding and states is interested in going to Out-pt therapy. She states she does not wish to start Out-pt therapy until after her f/u appt w/Dr and has F/C removed. Instructed pt to talk to her doctor @ follow-up appt and to discuss her wishes for Out-pt therapy at that time if she is still interested then. Pt voices understanding. Pt wishes to return home and states has no concerns with going home at time of discharge. CM to follow for any further discharge planning/needs. Pt voices no further concerns/needs at this time. Advised pt to ask for CM if any further questions/concerns/needs arise. Voices understanding. Plan: Home with family support. Rosalva DICKINSON RN, CM
[2018-06-10] MEDS: Ketorolac 10 MG Tablet PO (12:12)
--- NOTE | 2018-06-10 12:38 | PCM.PROGNOTE ---
Patient Problems: Active and Suspected Problems (Last Reviewed 06/03/18 @ 12:46 by Jose Rodarte DO) Urethral hypermobility (Acute) Subjective: Doing well, eating, passing gas, fluids heplocked. Jackson back in, PVR 200cc. Ready to have PT eval for walker at home, then discharge today with jackson to straight drain for trial of void next week. - Physical Exam General: Alert, Oriented x3, Cooperative, No apparent distress HEENT: Atraumatic, Normocephalic Oral: Moist Mucosa Lungs: Clear to auscultation, Normal air movement Cardiovascular: Regular rate Abdomen: Soft Musculoskeletal: No Muscle Wasting Neurological: Cranial nerves II-XII grossly intact, Neuro grossly intact Comment: jackson with yellow urine Vital Signs Temp Pulse Resp BP Pulse Ox 97.8 F 87 16 108/67 92 06/10/18 08:55 06/10/18 08:55 06/10/18 08:55 06/10/18 08:55 06/10/18 08:55 Oxygen Flow Rate (L/min) 2 Oxygen Delivery Method Room Air Weight: 74.1 kg Body Mass Index (BMI) 27.8 Intake and Output for Last 24 Hours 06/08/18 06/09/18 06/10/18 23:59 23:59 23:59 Intake Total 2608 / 2608 3816 / 3816 667.2 / 667.2 Output Total 390 / 390 2300 / 2300 450 / 450 Balance 2218 / 2218 1516 / 1516 217.2 / 217.2 Laboratory Tests Past 24 Hrs 06/10/18 05:37 Sodium 143 Potassium 3.3 L Chloride 107 Carbon Dioxide 30.0 Anion Gap 6 BUN 7 Creatinine 0.75 Estim Creat Clear Calc 41.97 Est GFR (MDRD) Af Amer 97 Est GFR (MDRD) Non-Af 80 BUN/Creatinine Ratio 9.4 L Glucose 98 Calcium 8.0 L Medical Necessity - Tobacco Use Smoking Status: Never smoker Assessment/Plan All Active Problems (Last Reviewed 06/03/18 @ 12:46 by Jose Rodarte DO) Urethral hypermobility (Acute) Bladder prolapse (Acute) Vaginal pessary in situ (Acute) PT eval Home today with jackson teaching. Follow up in office next week.
--- NOTE | 2018-06-10 12:43 | DCINST_ITS ---
Discharge Diet: No Restrictions Discharge Activity: Return to Normal Activity, May Not Drive, May Shower May resume sexual activity in: 6-8 weeks Call your doctor if your incision/area has: Continuous Slow Oozing, Sudden Increased Bleeding, Increased Pain/ Swelling, Increased Redness, Foul Smelling Discharge Call your doctor if you observe: Fever of 101 or Higher, Inability to urinate, Inability to have a bowel movement, Using more than one pad per hour, Shortness of breath, Chest pain, Calf discomfort, Uncontrolled pain Catheter: Julien to leg bag, Julien to large bag, - - home with leg bag and large bag Additional Instructions: continue estrogen cream in vagina on the stitches. Allergies/Adverse Reactions: Allergies cephalexin [From Keflex] Allergy (Verified 06/01/18 09:56) Swelling cephaeline Adverse Reaction (Unknown, Verified 05/10/18 11:19) did not work Medications to take at Discharge cholecalciferol (vitamin D3) 1,000 unit capsule 1,000 unit PO QDAY 10/14/17 meclizine 25 mg tablet 25 mg PO ONCE PRN 10/14/17 estradiol 0.01% (0.1 mg/gram) vaginal cream 2 g VAGINAL DAILY 03/03/18 Amlodipine Besylate [Norvasc] 5 mg PO QHS 06/01/18 Docusate Sodium [Colace] 100 mg PO QHS 06/01/18 Omeprazole 20 mg PO QHS 06/01/18 Phenazopyridine [Pyridium] 100 mg PO DAILY PRN 06/01/18 Naproxen [Naprosyn] 250 - 500 mg PO Q8H PRN PRN #30 tablet 06/08/18 Oxycodone HCl/Acetaminophen [Percocet 5-325] 1 - 2 tablet PO Q4H PRN PRN 7 Days #15 tablet 06/08/18 valsartan 160 mg-hydrochlorothiazide 12.5 mg tablet 2 tab PO DAILY 06/08/18 The following prescriptions were given: Oxycodone HCl/Acetaminophen [Percocet 5-325] 1 - 2 tablet PO Q4H PRN PRN 7 Days #15 tablet PRN Reason: Pain Naproxen [Naprosyn] 250 - 500 mg PO Q8H PRN PRN #30 tablet PRN Reason: MILD PAIN Primary Care Physician: Brown,Jose R, DO [Primary Care Provider] - Test Results: Test results from this visit will be discussed in further detail at your follow- up appointment, if applicable. Please Follow Up With: Elis Carrero MD When: Will need to remove catheter at 10pm on night of 06/16. Call for appt 06/17 Proposed Discharge Date: 06/10/18
--- NOTE | 2018-06-10 13:30 | NURSING ---
called Dr Bill to inform her that Dr Carrero had been by and was D/Cing pt home with renetta. Dr Bill stated that she would be in OR and it was ok to DC pt without her seeing her. no further DC instructions
[2018-06-10 14:00] VITALS: BP 120/73; PULSE 68; RESP 16; TEMP 37.1; O2SAT 96
--- NOTE | 2018-06-10 14:00 | CASEMGMT ---
EMILY CM NOTE: Script obtained from Dr Carrero for kavon and faxed to [facility] [place]. Walker has been delivered to room. Rosalva DICKINSON RN CM
--- OUTSIDE RECORDS SUMMARY | 2018-09-09 11:15 | XMS RPT_ITS ---
:1940 Author Organization [place] Support Name Relationship Address Phone R Unavailable Unavailable Unavailable CHUCKY HEADLEY Unavailable [address] + [place] [address] Ramana HEADLEY Unavailable Unavailable + R Unavailable Unavailable Unavailable CHUCKY HEADLEY Unavailable [address] + [place] [address] Ramana HEADLEY Unavailable Unavailable + R Unavailable Unavailable Unavailable CHUCKY HEADLEY Unavailable [address] + [place] [address] Ramana HEADLEY Unavailable Unavailable + [place] [address] R Unavailable Unavailable Unavailable CHUCKY HEADLEY Unavailable [address] + [place] [address] Ramana HEADLEY Unavailable Unavailable + [place] [address] R Unavailable Unavailable Unavailable CHUCKY HEADLEY Unavailable [address] + [place] [address] Ramana HEADLEY Unavailable Unavailable + [place] [address] R Unavailable Unavailable Unavailable CHUCKY HEADLEY Unavailable [address] + [place] [address] Ramnaa HEADLEY Unavailable . + [place] [address] R Unavailable Unavailable Unavailable CHUCKY HEADLEY Unavailable [address] + [place] [address] Ramana HEADLEY Unavailable Unavailable + [place] [address] SOURAV STEEL Unavailable . + [place] . R Unavailable Unavailable Unavailable CHUCKY HEADLEY Unavailable [address] + [place] [address] MAST, SOURAV Unavailable . + [place], [place] . R Unavailable Unavailable Unavailable HEADLEYCHUCKY Unavailable [address] + [place] [address] MAST, SOURAV Unavailable Unavailable + [place] R Unavailable Unavailable Unavailable CHUCKY HEADLEY Unavailable [address] + [place] [address] MAST, SOURAV Unavailable [address] + [place] [address] R Unavailable Unavailable Unavailable HEADLEYCHUCKY Unavailable [address] + [place] [address] MAST, SOURAV Unavailable [address] + [facility] [place] [address] R Unavailable Unavailable Unavailable HEADLEYCHUCKY Unavailable [address] + [place] [address] MAST, SOURAV Unavailable [address] + [place] [address] R Unavailable Unavailable Unavailable CHUCKY HEADLEY Unavailable [address] + [place] [address] MAST, SOURAV Unavailable Unavailable + [place] [address] R Unavailable Unavailable Unavailable HEADLEYCHUCKY Unavailable [address] + [place] [address] MAST, SOURAV Unavailable Unavailable + [place] [address] R Unavailable Unavailable Unavailable CHUCKY HEADLEY Unavailable [address] + [place] [address] MAST, SOURAV Unavailable . + [place] [address] R Unavailable Unavailable Unavailable HEADLEYCHUCKY Unavailable [address] + [place] [address] MAST, SOURAV Unavailable Unavailable + [place] [address] R Unavailable Unavailable Unavailable HEADLEYCHUCKY Unavailable [address] + [place] [address] MAST, SOURAV Unavailable . + [place] [address] R Unavailable Unavailable Unavailable HEADLEY, CHUCKY Unavailable [address] + [place] [address] MAST, SOURAV Unavailable Unavailable + R Unavailable Unavailable Unavailable HEADLEY, CHUCKY Unavailable [address] + [place] [address] MAST, SOURAV Unavailable . + ., [place] . R Unavailable Unavailable Unavailable HEADLEY, CHUCKY Unavailable [address] + [place] [address] MAST, SOURAV Unavailable . + ., [place] . R Unavailable Unavailable Unavailable HEADLEY, CHUCKY Unavailable [address] + [place] [address] [facility], SOURAV Unavailable . + ., [place] . R Unavailable Unavailable Unavailable HEADLEY, CHUCKY Unavailable [address] + [place] [address] HEADLEY, CHUCKY Unavailable [address] + [place] [address] HEADLEY, CHUCKY Unavailable [address] + [place] [address] Care Team Providers Name Role Phone DR. KIMBERLY RIOS DO Attending Unavailable BROWN, KADI Primary Care Unavailable Brown, Kadi Attending Unavailable Brown, Kadi Referring Unavailable MarcanthonyLizbeth Attending Unavailable Wyneski, Elis Referring Unavailable Brown, Kadi Primary Care Unavailable Yarielanthony, Lizbeth Consulting Unavailable Wyneski, Elis Consulting Unavailable Wyneski, Elis Admitting Unavailable YarielanthonyGrupoon Attending Unavailable Wyneski, Elis Referring Unavailable Brown, Kadi Primary Care Unavailable Marcanthony, Lizbeth Consulting Unavailable Wyneski, Elis Consulting Unavailable Sandie, [place] Attending Unavailable Wyneski, Elis Referring Unavailable PraChucky taveras Attending Unavailable Brown, Kadi Primary Care Unavailable PrahChucky Attending Unavailable Brown, Kadi Primary Care Unavailable Prah Chucky Consulting Unavailable Brown, Kadi Attending Unavailable Brown, Kadi Referring Unavailable Brown, Kadi Primary Care Unavailable Oak IslandCarlos Manuely Attending Unavailable Brown, Kadi Referring Unavailable Brown, Kadi Primary Care Unavailable [place] Angie Attending Unavailable Brown, Kadi Referring Unavailable Brown, Kadi Primary Care Unavailable [place], Angie Attending Unavailable Brown, Kadi Primary Care Unavailable Yumiko, Angie Referring Unavailable [place], Angie Attending Unavailable Brown, Kadi Referring Unavailable Brown, Kadi Primary Care Unavailable Yumiko, Angie Attending Unavailable [place], Angie Referring Unavailable Brown, Kadi Primary Care Unavailable [place], Angie Attending Unavailable Brown, Kadi Referring Unavailable Brown, Akdi Primary Care Unavailable Yumiko, Angie Attending Unavailable Yumiko, Angie Referring Unavailable Primay Care Physicia, No Primary Care Unavailable [place], Angie Attending Unavailable Yumiko, Angie Referring Unavailable Brown, Kadi Primary Care Unavailable Yumiko, Angie Attending Unavailable Brown, Kadi Referring Unavailable Brown, Kadi Primary Care Unavailable Marcanthony, Lizbeth Attending Unavailable Brown, Kadi Referring Unavailable Brown, Kadi Primary Care Unavailable Marcanthony, Lizbeth Attending Unavailable Brown, Kadi Primary Care Unavailable Marcanthony, Lizbeth Referring Unavailable Marcanthony, Lizbeth Attending Unavailable Brown, Kadi Primary Care Unavailable Marcanthony, Lizbeth Referring Unavailable Brown, Kadi Attending Unavailable Brown, Kadi Referring Unavailable Brown, Kadi Primary Care Unavailable Marcanthony, Lizbeth Attending Unavailable Brown, Kadi Referring Unavailable Elis Carrero Attending Unavailable Wynesjossie, Elis Referring Unavailable Brown, Kadi Primary Care Unavailable Yarielanthony, Lizbeth Consulting Unavailable Elis Carrero Admitting Unavailable PROBLEMS PROBLEMS DATE TYPE CONDITION / CODE ATTENDING STATUS SOURCE 06/28/2018 Unknown D72.819 - Decreased Chucky Howe Active [facility] white blood cell [facility] count, unspecified / Hospital D72.819(ICD-10) Repository 06/09/2018 Unknown G89.18 - Other acute Marcanthony, Active [facility] postprocedural pain / Lizbeth Community G89.18(ICD-10) Hospital Repository 06/14/2018 Unknown N81.2 - Incomplete Elis Carrero Active [facility] uterovaginal prolapse Community / N81.2(ICD-10) Hospital Repository 06/16/2018 Unknown R94.31 - Abnormal Sandie, [place] Active [facility] electrocardiogram Community [ECG] [EKG] / Hospital R94.31(ICD-10) Repository 05/10/2018 Unknown R10.2 - Pelvic and Marcanthony, Active [facility] perineal pain / Lizbeth Community R10.2(ICD-10) Hospital Repository 05/10/2018 Unknown G89.29 - Other chronic Marcanthony, Active [facility] pain / G89.29(ICD-10) [facility] Hospital Repository 01/12/2018 Unknown N89.8 - Other Marcanthony, Active [facility] specified [facility] noninflammatory Hospital disorders of vagina / Repository N89.8(ICD-10) 12/16/2017 Unknown N39.0 - Urinary tract Yumiko, Active [place] infection, site not [facility] specified / Hospital N39.0(ICD-10) Repository 11/18/2017 Unknown Z92.89 - Personal Yumiko, Active [facility] history of other [facility] medical treatment / Hospital Z92.89(ICD-10) Repository 11/18/2017 Unknown N95.2 - Postmenopausal [place], Active [facility] atrophic vaginitis / [facility] N95.2(ICD-10) Hospital Repository 11/18/2017 Unknown 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, 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 / Hospital L90.0(ICD-10) Repository 11/05/2017 Unknown N94.9 - Unspecified [place], Active [facility] condition associated [facility] with female genital Hospital organs and menstrual Repository cycle / N94.9(ICD-10) 10/14/2017 Unknown N81.10 - Cystocele, Brown, Kadi Active [facility] unspecified / Community N81.10(ICD-10) Hospital Repository PROCEDURES PROCEDURES No Procedure Records FoundRESULTS RESULTS CBC W/DIFF, AUTOMATED Collected: 06/28/2018 Status: F Source: [place] 1:36 PM [facility] RE[facility]ITORY Order Comment: Reason for Laboratory Test . TYPE CODE TESTS RESULT OUT OF RANGE REFERENCE UNITS LAB L100.1000 4.4-11.0 K/mm3 Normal WBC 4.9 LAB L100.1200 4.2-5.4 M/mm3 Low RBC 4.17 LAB L100.1300 12.0-15.0 g/dl Normal HGB 12.4 LAB L100.1400 37-47 % Normal HCT 38.5 LAB L100.1500 81-99 fL Normal MCV 92.3 LAB L100.1600 27.0-32.0 pg Normal MCH 29.7 LAB L100.1700 32-36 g/gl Normal MCHC 32.2 LAB L100.1810 11.6-14.6 % Normal RDW CV 14.0 LAB L100.1820 35.1-43.9 fl High RDW SD 46.3 LAB L100.1900 150-450 K/mm3 Normal PLT 263 LAB L100.2000 6.2-12.0 fl Normal MPV 11.1 LAB L100.2100 47-70 % Normal NEUT% 56.7 LAB L100.2200 19-41 % Normal LY% 28.8 LAB L100.2300 0-10 % Normal MONO% 9.4 LAB L100.2400 0-5 % Normal EO% 4.5 LAB L100.2500 0-1 % Normal BASO% 0.6 LAB L100.2550 0.0-0.9 % Normal IM GRAN % 0.000 Result Comment: IG% - Immature Granulocytes (promyelocytes, myelocytes and metamyelocytes) > 1% indicates that a LEFT SHIFT is Present. LAB L100.2620 2.0-7.7 X10 3/uL Normal Absolute Neut 2.8 LAB L100.2720 0.83-4.51 X10 3/ul Normal Absolute Lymph 1.41 Performed By: #### L100.0100 #### [facility] [address] [place], [place], [address] COMPREHENSIVE METABOLIC Collected: 06/28/2018 Status: F Source: [place] HASMUKH 1:36 PM [facility] REPOSITORY Order Comment: Reason for Laboratory Test . Serial Specimen #1, #2 or #3? 1 TYPE CODE TESTS RESULT OUT OF RANGE REFERENCE UNITS LAB L501.0100 74-106 mg/dL Normal GLU 94 Result Comment: Please note revised GLUCOSE reference range effective 2017. LAB L501.1000 7-18 mg/dL Normal BUN 16 LAB L501.1100 0.55-1.02 mg/dL Normal CREAT,SERUM 0.78 Result Comment: The validity of the calculated GFR AND GFRAA in patients over 70 years has not been determined. Clinical correlation is essential. LAB L501.1110 >60 mL/min Normal EST GFR 77 Result Comment: Non- GFR Calc LAB L501.1115 >60 mL/min Normal EST GFR - AA 93 Result Comment: GFR Calc LAB L501.1255 ml/min Normal Estimated CRCL 41.97 LAB L501.1300 10-20 RATIO High BUN/CRE 20.6 LAB L501.1500 6.4-8. g/dL Normal 2 T PROT 7.2 LAB L501.1800 3.2-5. g/dL Normal 0 ALB 3.6 LAB L501.1950 2.2-4. g/dL Normal 2 GLOB 3.6 LAB L501.2000 0.9-2. RATIO Normal 4 A/G 1.0 LAB L501.2200 8.5-10 mg/dL Normal .1 CA 9.2 LAB L501.4100 15-37 U/L Low AST 14 LAB L501.4305 45-117 U/L Normal ALK P 78 LAB L501.4405 13-56 U/L Normal ALT 18 LAB L501.4600 0.20-1 mg/dL Normal .00 T BILI 0.40 LAB L501.5300 136-14 mmol/L Normal 5 NA 142 LAB L501.5600 3.5-5. mmol/L Normal 1 K 3.8 LAB L501.5900 98-107 mmol/L Normal CL 106 LAB L501.6100 21.0-3 mmol/L Normal 2.0 CO2 31.0 LAB L501.6200 5-15 Normal GAP 5 Performed By: #### L500.4050, L504.2610 #### [facility] [address] [place], [place], [address] LDH Collected: 06/28/2018 Status: F Source: [place] 1:36 PM [facility] REPOSITORY Order Comment: Reason for Laboratory Test . Serial Specimen #1, #2 or #3? 1 TYPE CODE TESTS RESULT OUT OF RANGE REFERENCE UNITS LAB L504.2610 84-246 U/L Normal LDH 171 Performed By: #### L500.4050, L504.2610 #### [facility] [address] [facility] [place], [address] ONCOLOGY VISIT REPORT Observed: 06/23/2018 Status: F Source: [place] 4:19 PM [facility] REPOSITORY [facility] [address] [place] [address] [place] [address] OFFICE VISIT Date of Service: 06/23/18 1607 MR#: [id number] Acct: [id number] Name: CLAIRE HEADLEY Rep #: [id number] : 1940 From: Chucky Howe MD Age/Sex: 77/F Location: OMD Status: Signed with Addenda ADDENDUM by Chucky Howe MD on 06/23/18 at 1619 06/23/18 1619 <Electronically signed by Chucky Howe MD> Date Chucky Howe MD cc: Elis Carrero MD * Signed Subjective - Date of Service Date of Service:: 06/23/18 - Chief Complaint Referred for low white cell count. - History of Present Illness 77y.o.woman had blood work on 06/02/2018 WBC was 3.7. and referred for evaluation. She had repeat WBC on 06/09/2018 and it was 6. She denies any previous blood disorders. - Past Medical/Social History Social History Social History: No changes Smoking Status Never smoker Review of Systems Constitutional:: Denies: Fever, Sweats, Weight loss, Appetite change, Chills Cardiovascular:: Denies: Chest pain, Palpitations, Dyspnea on exertion, Orthopnea, PND, Shortness of breath Respiratory: Denies: Cough, Hemoptysis, Shortness of Breath, Wheezing Gastrointestinal:: Denies: Abdominal pain, Nausea, Vomiting, Diarrhea, Constipation, Hematochezia Genitourinary: Denies: Dysuria, Hematuria, 15, Flank pain Musculoskeletal:: Denies: Back pain, Myalgia, Arthralgia Skin: Denies: Rash, Skin Changes, Wounds Neurological:: Denies: Headache, Dizziness, Visual changes, Tinnitus, Hearing loss Psychiatric: Denies: Anxiety, Depression, Homicidal Ideations, Suicidal Ideations Vital Signs Height 5 ft 4 in Weight: 74.843 kg Weight in Pounds 165.0 lbs Pulse Ox 97 - Physical Exam General: Alert, Oriented x3, No apparent distress HEENT: Atraumatic, PERRLA, EOMI, Normocephalic Oropharynx:: Dry mucosa Neck:: Supple, Trachea midline. Negative for: JVD, bilateral Cardiac:: Regular rate, Regular rhythm, Normal S1, Normal S2. Negative for: Murmur Lungs: Clear to auscultation, Excusion symmetrical. Negative for: Rhonchi, Wheezes Abdomen:: Bowel sounds x 4, Soft, Non-tender, Non-distended. Negative for: Hepatosplenomegaly Extremities:: Negative for: Cyanosis, Edema Neurological: Neuro grossly intact Skin:: Negative for: Lesions, Rash, Petechiae, Ecchymosis Psychiatric:: Appropriate affect, Euthymic Lymphatics:: Negative for: Cervical lymphadenopathy, Supraclavicular lymphadenopathy, Axillary lymphadenopathy Assessment and Plan Leukopenia-resolved. Plan: Repeat blood count. If normal then no further follow up. Medications: Prescriptions This Visit Medication Instructions Recorded Ganciclovir [Zirgan] 5 gm OP PRN PRN 06/23/18 Primary Care Provider: Kadi Rodarte DO Referring Provider: - Problem List (1) Leukopenia Status: Acute Qualifiers: Leukopenia type: unspecified Qualified Code(s): D72.819 - Decreased white blood cell count, unspecified 06/23/18 1617 <Electronically signed by Chucky Howe MD> Date Chucky Howe MD Cosigner Signature: Date (if applicable) CC: Elis Carrero MD DISCHARGE INSTRUCTION Observed: 06/10/2018 Status: F Source: [place] 12:43 PM [facility] REPOSITORY [facility] Medical Records Department [address] [place] [address] [place] [address] Instructions for Home/Discharge Instructions 06/10/18 1240 MR#: [id number] Acct: [id number] Name: CLAIRE HEADLEY Rep #: [id number] : 1940 77 From: Elis Carrero MD PCP: Kadi Brown, DO Status: ADM IN Discharge Diet: No Restrictions Discharge Activity: Return to Normal Activity, May Not Drive, May Shower May resume sexual activity in: 6-8 weeks Call your doctor if your incision/area has: Continuous Slow Oozing, Sudden Increased Bleeding, Increased Pain/ Swelling, Increased Redness, Foul Smelling Discharge Call your doctor if you observe: Fever of 101 or Higher, Inability to urinate, Inability to have a bowel movement, Using more than one pad per hour, Shortness of breath, Chest pain, Calf discomfort, Uncontrolled pain Catheter: Jackson to leg bag, Jackson to large bag, - - home with leg bag and large bag Additional Instructions: continue estrogen cream in vagina on the stitches. Allergies/Adverse Reactions: Allergies cephalexin [From Keflex] Allergy (Verified 06/01/18 09:56) Swelling cephaeline Adverse Reaction (Unknown, Verified 05/10/18 11:19) did not work Medications to take at Discharge cholecalciferol (vitamin D3) 1,000 unit capsule 1,000 unit PO QDAY 10/14/17 meclizine 25 mg tablet 25 mg PO ONCE PRN 10/14/17 estradiol 0.01% (0.1 mg/gram) vaginal cream 2 g VAGINAL DAILY 03/03/18 Amlodipine Besylate [Norvasc] 5 mg PO QHS 06/01/18 Docusate Sodium [Colace] 100 mg PO QHS 06/01/18 Omeprazole 20 mg PO QHS 06/01/18 Phenazopyridine [Pyridium] 100 mg PO DAILY PRN 06/01/18 Naproxen [Naprosyn] 250 - 500 mg PO Q8H PRN PRN #30 tablet 06/08/18 Oxycodone HCl/Acetaminophen [Percocet 5-325] 1 - 2 tablet PO Q4H PRN PRN 7 Days #15 tablet 06/08/18 valsartan 160 mg-hydrochlorothiazide 12.5 mg tablet 2 tab PO DAILY 06/08/18 The following prescriptions were given: Oxycodone HCl/Acetaminophen [Percocet 5-325] 1 - 2 tablet PO Q4H PRN PRN 7 Days #15 tablet PRN Reason: Pain Naproxen [Naprosyn] 250 - 500 mg PO Q8H PRN PRN #30 tablet PRN Reason: MILD PAIN Primary Care Physician: Kadi Rodarte DO [Primary Care Provider] - Test Results: Test results from this visit will be discussed in further detail at your follow-up appointment, if applicable. Please Follow Up With: Elis Carrero MD When: Will need to remove catheter at 10pm on night of 06/16. Call for appt 06/17 Proposed Discharge Date: 06/10/18 06/10/18 1243 <Electronically signed by Elis Carrero MD> Date Elis Carrero MD CC: Kadi Rodarte DO; Lizbeth Bill MD BASIC METABOLIC Collected: 06/10/2018 Status: F Source: [place] PROFILE (BMP) 5:37 AM [facility] REPOSITORY TYPE CODE TESTS RESULT OUT OF RANGE REFERENCE UNITS LAB L501.0100 74-106 mg/dL Normal GLU 98 Result Comment: Please note revised GLUCOSE reference range effective 2017. LAB L501.1000 7-18 mg/dL Normal BUN 7 LAB L501.1100 0.55-1.02 mg/dL Normal CREAT,SERUM 0.75 Result Comment: The validity of the calculated GFR AND GFRAA in patients over 70 years has not been determined. Clinical correlation is essential. LAB L501.1110 >60 mL/min Normal EST GFR 80 Result Comment: Non- GFR Calc LAB L501.1115 >60 mL/min Normal EST GFR - AA 97 Result Comment: GFR Calc LAB L501.1255 ml/min Normal Estimated CRCL 41.97 LAB L501.1300 10-20 RATIO Low BUN/CRE 9.4 LAB L501.2200 8.5-10 mg/dL Low .1 CA 8.0 LAB L501.5300 136-14 mmol/L Normal 5 NA 143 LAB L501.5600 3.5-5. mmol/L Low 1 K 3.3 LAB L501.5900 98-107 mmol/L Normal CL 107 LAB L501.6100 21.0-3 mmol/L Normal 2.0 CO2 30.0 LAB L501.6200 5-15 Normal GAP 6 Performed By: #### L500.2500 #### [facility] [address] [place], [address] CBC-COMPLETE BLOOD CNT Collected: 06/09/2018 Status: F Source: [place] NO DIFF 6:28 AM [facility] REPOSITORY TYPE CODE TESTS RESULT OUT OF RANGE REFERENCE UNITS LAB L100.1000 4.4-11.0 K/mm3 Normal WBC 6.9 LAB L100.1200 4.2-5.4 M/mm3 Low RBC 3.55 LAB L100.1300 12.0-15.0 g/dl Low HGB 10.8 LAB L100.1400 37-47 % Low HCT 32.9 LAB L100.1500 81-99 fL Normal MCV 92.7 LAB L100.1600 27.0-32.0 pg Normal MCH 30.4 LAB L100.1700 32-36 g/gl Normal MCHC 32.8 LAB L100.1810 11.6-14.6 % Normal RDW CV 13.8 LAB L100.1820 35.1-43.9 fl High RDW SD 45.0 LAB L100.1900 150-450 K/mm3 Normal PLT 163 LAB L100.2000 6.2-12.0 fl Normal MPV 11.8 Performed By: #### L100.0500 #### [facility] [address] 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 pyridium given and discussed avoidance of foods (4) Atrophic vaginitis Status: Chronic Comment: has used vaginal estrogen in past. 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 Comment: farhat scheduled with alise Report of Operation Date of Procedure: 06/08/18 Pre-Operative Diagnosis: prolapse Post-Operative Diagnosis: same Surgery/Procedure Performed:: tvh bso Description of Surgical Findings:: cystocele rectocele cold storage superintendent: Juan Frances cold storage superintendent: Elis Carrero Type of Anesthesia:: General Special Medications: gurvinder Specimen's removed: uterus tubes ovaries Drains: jackson Estimated Blood Loss (mL): 100 Fluids Replaced: crystalloid Description of Procedure: Patient was taken to the operating room and was placed under general anesthesia was prepped and draped in normal sterile fashion in the dorsal lithotomy position. Preoperative antibiotics and SCDs. Weighted speculum was placed in the vagina and the anterior and posterior lip of the cervix was grasped with 2 Logan clamps and circumferentially injected with dilute vasopressin. A circumferential incision was made with a scalpel and the posterior cul-de-sac was entered into sharply and a longneck speculum was placed. The anterior cul-de-sac was also dissected down and entered into sharply and the uterosacral ligaments were clamped cut and suture ligated bilaterally followed by the cardinal ligaments which were Clamped cut and suture ligated bilaterally with 0 Monocryl. The uterus serially descended and progressive bites were taken bilaterally up to the level of the utero-ovarian ligament bilaterally which was clamped transected and double ligated with 0 Monocryl suture and 0 Vicryl free tie. jackson catheter was placed in the bladder and orange colored urine was noted in the tubing without any air or blood present. Bilateral fallopian tubes and ovaries were well visualized and noted be within normal limits and the bilateral fallopian tubes and ovaries were transected across the base of the infundibulopelvic ligaments with a Cristal clamp and removed and sutured with 0 Vicryl suture. a raw appearance to the bladder was noted and it was treated with gurvinder. The vagina was closed with [id number] 0 Vicryl pop offs including the posterior and anterior peritoneum in the reapproximation. Excellent hemostasis was noted. Please see additional operative note by Dr. carrero for any additional surgery details. Grafts/Implants Used: none - Complications none - Admit VTE Documentation VTE Present on Admission: No VTE Mechan Device Prophylaxis: SCD's 06/08/18 1743 <Electronically signed by Lizbeth Bill MD> Date Lizbeth Bill MD CC: Kadi Rodarte DO; Elis Carrero MD; Lizbeth Bill MD Signed OPERATIVE REPORT Observed: 06/08/2018 Status: F Source: [place] 12:49 PM [facility] REPOSITORY [facility] Medical Records Department [address] [place] [address] Operative Report 06/08/18 1236 MR#: [id number] Acct: [id number] Name: CLAIRE HEADLEY Rep #: [id number] : 1940 77 From: Elis Carrero MD PCP: Kadi Rodarte DO Status: [facility] Location: [place] [address] Problem List (1) Urethral hypermobility Status: Acute (2) 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 Post-Operative Diagnosis: same Surgery/Procedure Performed:: anterior and posterior repair, right sacrospinous ligament fixation, [place] midurethral sling, cystoscopy. Description of Surgical Findings:: no complications. short vault length at conclusion. bilateral ureteral jets observed, both UO's very small. cold storage superintendent: Lizbeth Bill cold storage superintendent: Lizbeth Bill Type of Anesthesia:: General Specimen's removed: uterus tubes ovaries per Drains: jackson Estimated Blood Loss (mL): 150cc Description of Procedure: The patient is a 77-year-old female who presented to the office in search of surgical intervention for her pelvic organ prolapse. All risks benefits and alternatives were discussed. She underwent preoperative testing including cystoscopy and urodynamics in the office. The details of the procedure were discussed and she agreed to proceed. The patient was taken to the operating room and placed on the operating room table. Anesthesia monitored the head, neck, airway, IV access, vital signs throughout the case. Once anesthesia was appropriately administered the patient was prepped and draped in usual sterile fashion. She was in supine dorsal lithotomy and Trendelenburg position. All dependent portions of her body were appropriately padded. The hysterectomy and bilateral salpingo-oophorectomy was performed by Dr. Tray Castellanos. Please see her dictation for full details. Following closure of the vaginal cuff, the case was turned over to me. The patient had an indwelling 16 Bruneian Jackson catheter in her bladder was empty. The anterior vaginal wall was short in length as was the sterile vaginal wall. I decided to proceed with apical support with sacral spinous ligament fixation in conjunction with the anterior and posterior repairs. A midline incision was made following distention with vasopressin for hydrostatic dissection and hemostatic control. Both sharp and blunt dissection ensued on the right side until the ischial spine was palpable in the sacral spinous ligament was freed from surrounding tissues. The ureter was palpable on the side of the patient's pelvis close to the spine. Care was taken when passing the Capio Ethibond suture to avoid this structure. The Capio suture was then brought out through the apical anterior vaginal wall. The anterior defect was closed in 2 layers with 2-0 vicryl interrupted sutures in the pubocervical fascia. The midline incision was closed in running interlocking fashion with 2-0 vicryl. Attention was turned to the posterior vaginal wall. It was injected submucosally with vasopressin and both sharp and blunt dissection was used to identify and isolate the rectovaginal fascia bilaterally. This was then brought together and 2 layer closure using 2-0 Vicryl suture. The midline incision was once again closed using running interlocking 2-0 Vicryl. The mid urethra was then identified and submucosally injected. A midline vertical incision approximately 1.5 cm in length was then made and both sharp and blunt dissection was performed bilaterally to open up the periurethral space. Using the trochars the Altis mid urethral sling was inserted without difficulty bilaterally. The sling was flat and had good tissue coaptation without pressure. The midline incision was closed using running interlocking 2-0 Vicryl. The Jackson catheter was removed and a cystourethroscopy was performed. There were no incisions or foreign bodies within the urinary bladder or urethra. There is no mesh within the urinary bladder or urethra. Bilateral ureteral orifices were very extremely small almost pinpoint in size. Ureteral jets with Pyridium stained urine were visualized bilaterally. At this time the scope was removed and the Jackson catheter was reinserted. The vagina was packed with Premarin cream and vaginal packing. The patient was awakened taken to the recovery room in good condition. There were no complications during this procedure. Grafts/Implants Used: Altis midurethral sling - Complications none - Admit VTE Documentation VTE Present on Admission: Yes VTE Mechan Device Prophylaxis: SCD's VTE Pharm Prophylaxis ordered?: Yes 06/08/18 1249 <Electronically signed by Elis Carrero MD> Date Elis Carrero MD CC: Kadi Rodarte DO; Elis Carrero MD; Lizbeth Bill MD Signed DISCHARGE INSTRUCTION Observed: 06/08/2018 Status: F Source: [place] 7:51 AM [facility] REPOSITORY [facility] Medical Records Department [address] [place] [address] Instructions for Home/Discharge Instructions 06/08/18 0751 MR#: [id number] Acct: [id number] Name: CLAIRE HEADLEY Rep #: [id number] : 1940 77 From: Lizbeth Bill MD PCP: Kadi Rodarte DO Status: [facility] Discharge Diet: No Restrictions Discharge Activity: Return to Normal Activity, May Not Drive, May Shower May resume sexual activity in: 6-8 weeks Call your doctor if your incision/area has: Continuous Slow Oozing, Sudden Increased Bleeding, Increased Pain/ Swelling, Increased Redness, Foul Smelling Discharge Call your doctor if you observe: Fever of 101 or Higher, Inability to urinate, Inability to have a bowel movement, Using more than one pad per hour Allergies/Adverse Reactions: Allergies cephalexin [From Keflex] Allergy (Verified 06/01/18 09:56) Swelling cephaeline Adverse Reaction (Unknown, Verified 05/10/18 11:19) did not work Medications to take at Discharge cholecalciferol (vitamin D3) 1,000 unit capsule 1,000 unit PO QDAY 10/14/17 meclizine 25 mg tablet 25 mg PO ONCE PRN 10/14/17 estradiol 0.01% (0.1 mg/gram) vaginal cream 2 g VAGINAL DAILY 03/03/18 Amlodipine Besylate [Norvasc] 5 mg PO QHS 06/01/18 Docusate Sodium [Colace] 100 mg PO QHS 06/01/18 Omeprazole 20 mg PO QHS 06/01/18 Phenazopyridine [Pyridium] 100 mg PO DAILY PRN 06/01/18 Naproxen [Naprosyn] 250 - 500 mg PO Q8H PRN PRN #30 tablet 06/08/18 Oxycodone HCl/Acetaminophen [Percocet 5-325] 1 - 2 tablet PO Q4H PRN PRN 7 Days #15 tablet 06/08/18 valsartan 160 mg-hydrochlorothiazide 12.5 mg tablet 2 tab PO DAILY 06/08/18 The following prescriptions were given: Oxycodone HCl/Acetaminophen [Percocet 5-325] 1 - 2 tablet PO Q4H PRN PRN 7 Days #15 tablet PRN Reason: Pain Naproxen [Naprosyn] 250 - 500 mg PO Q8H PRN PRN #30 tablet PRN Reason: MILD PAIN Primary Care Physician: Kadi Rodarte DO [Primary Care Provider] - Test Results: Test results from this visit will be discussed in further detail at your follow-up appointment, if applicable. Please Follow Up With: Lizbeth Bill MD - [phone] 06/08/18 0751 <Electronically signed by Lizbeth Bill MD> Date Lizbeth Bill MD CC: Kadi Rodarte DO; Lizbeth Bill MD UTERUS Observed: 06/08/2018 Status: F Source: [place] 7:30 AM [facility] REPOSITORY Patient: CLAIRE HEADLEY : 1940 (77/F) Acct Num: [id number] Phys: Elis Carrero MD Unit Num: [id number] Loc: MS2 [id number] Specimen: [id number] Received: 06/08/181504 Spec Type: UTERUS TISSUES 1 TISSUES: Uterus, NOS COMMENT Case has been reviewed in consultation with Dr. Arboleda who concurs with the above diagnosis. IDC:SJ GROSS DESCRIPTION Received in fixative is one container labeled with the patient's name and designated uterus, ovaries, fallopian tubes. The specimen consists of a hysterectomy specimen consisting of uterus with cervix, detached bilateral fallopian tubes and detached bilateral ovaries. The uterus with cervix weighs 88 gm and measures 10 x 5 x 5 cm. The body of the uterus is deformed. The serosal surface is horner, glistening. The ectocervical mucosa is unremarkable. The external os is circular in contour. The endocervical canal measures 2.5 cm in length and the endocervical mucosa is horner, glistening and unremarkable. The endometrial cavity is compressed to one side and measures 3.5 cm in length and up to 0.5 cm in width. The endometrium is without any mass lesion and measures <0.1 cm in thickness. Most of the endometrial cavity appears to be completely obliterated. Sections of the myometrial wall reveal multiple ill-defined nodular masses suspicious for adenomyosis and a few well-defined nodular masses with the largest mass measuring 1 cm in greatest dimension. The bilateral fallopian tubes are not identified as right or left and measures 3.5 cm in length and 0.5 cm in diameter and 2 cm in length and 0.5 cm in diameter. The fimbrial end is identified. The detached bilateral ovaries are not identified as right or left and measures 2.5 x 1 x 1 cm and 4.5 x 2 x 1.5 cm. Both ovaries show suture material. Sections of the smaller ovary do not reveal any mass lesion. Sections of the larger ovary show it is completely replaced by a hemorrhagic cyst. Phosphoric Acid Supervisor sections are submitted in 12 cassettes as follows: 1 - anterior cervix, 2 - posterior cervix, 3 AND 4 - anterior uterine wall, 5 AND 6 - posterior uterine wall, sections of the uterine wall also contain ill-defined nodular masses, 7 - well-defined nodular masses, 8 AND 9 - bilateral fallopian tubes with each cassette contain one fallopian tube, entirely submitted, 10 - smaller ovary, entirely submitted, 11 AND 12 - larger ovary. / SJ :taras 06/09/18 TC:1 CPT: 78344 HEADER OPERATION: Hysterectomy, vaginal, total, bilateral salpingo-oophorectomy PRE-OP DIAGNOSIS: Cystocele midline; incomplete ureterovaginal prolapse; right ovarian cyst; rectocele; postmenopausal atrophic vaginitis; lower abdominal pain ; atrophy of vulva; retention of urine TISSUE SUBMITTED: Uterus, ovaries, fallopian tubes MICROSCOPIC DESCRIPTION Slides are reviewed. MICROSCOPIC DIAGNOSIS Uterus, hysterectomy: Cervix - nabothian cysts and mild chronic inflammation. Endometrium - inactive with cystic change. Myometrium - extensive adenomyosis and leiomyomas with degenerative change. Right and left fallopian tubes - no pathologic change. 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 AM:taras 06/10/18 Signed Jim Carter, 06/10/18 <signature on file> Performed By: #### PUT #### [facility] [address] [place] [address]. [place], [address] 12 LEAD ELECTROCARDIOGRAM Observed: 06/04/2018 Status: F Source: [place] 9:56 AM [facility] REPOSITORY [facility] Cardiovascular Services [address] [place] [id number] 12 Lead EKG 06/02/18 1031 MR#: [id number] Acct: [id number] Name: CLAIRE HEADLEY Rep #: [id number] : 1940 77 From: Waylon Hooper MD Attending Dr: Elis Carrero MD Status: PRE [facility] Ordering Dr: Elis Carrero MD Date: 06/02/18 Location: [facility] Sex: F C Admitted: Test Reason : PRE-OP Blood Pressure : / mmHG Vent. Rate : 063 BPM Atrial Rate : 063 BPM P-R Int : 180 ms QRS Dur : 094 ms QT Int : 394 ms P-R-T Axes : 022 -35 -01 degrees QTc Int : 403 ms Sinus rhythm with Premature supraventricular complexes Left axis deviation Incomplete right bundle branch block Abnormal ECG Confirmed by WAYLON HOOPER MD ([id number]), publications editor RIKKI FRENCH ([id number]) on 06/04/2018 9:56:15 AM Referred By: Elis Carrero Confirmed By:WAYLON HOOPER MD 06/04/18 0956 Date Waylon Hooper MD CC: Kadi Rodarte DO; Elis Carrero MD Signed INTERNAL MEDICINE Observed: 06/03/2018 Status: F Source: [place] OFFICE VISIT 12:49 PM [facility] Internal Medicine [address] [place] [address] [place] [address] OFFICE VISIT Date of Service: 06/03/18 MR#: [id number] Acct: [id number] Name: CLAIRE HEADLEY Rep #: [id number] : 1940 Provider: Kadi Rodarte DO Age/Sex: 77/F Location: [facility] Status: Signed Intake Vital Signs06/03/18 Body Mass Index (BMI) 28.8 Intake Visit 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 Complaint: pre surgical appt Is patient in pain?: No Allergies cephalexin [From Keflex] Allergy (Verified 06/01/18 09:56) Swelling cephaeline Adverse Reaction (Unknown, Verified 05/10/18 11:19) did not work Medications cholecalciferol (vitamin D3) 1,000 unit capsule 1,000 unit PO QDAY 10/14/17 [History Confirmed 06/01/18] meclizine 25 mg tablet 25 mg PO ONCE PRN 10/14/17 [History Confirmed 06/01/18] estradiol 0.01% (0.1 mg/gram) vaginal cream 2 g VAGINAL DAILY 03/03/18 [History Confirmed 06/01/18] Amlodipine Besylate [Norvasc] 5 mg PO QHS 06/01/18 [History Confirmed 06/01/18] Docusate Sodium [Colace] 100 mg PO QHS 06/01/18 [History Confirmed 06/01/18] Losartan Potassium 100 mg PO QHS 06/01/18 [History Confirmed 06/01/18] Omeprazole 20 mg PO QHS 06/01/18 [History Confirmed 06/01/18] Phenazopyridine [Pyridium] 100 mg PO DAILY PRN 06/01/18 [History Confirmed 06/01/18] valsartan 160 mg-hydrochlorothiazide 12.5 mg tablet 1 tab PO DAILY #90 tab 06/03/18 [Rx Confirmed 06/03/18] Post menopausal: Yes PFSH Medical History Bladder prolapse (Acute) GERD (gastroesophageal reflux disease) (Chronic) High blood pressure (Chronic) Back problem (Chronic) Surgical History History of lumpectomy of left breast (Acute) S/P dilation and curettage (Resolved) Family History Mother Anemia Heart disease Hypertension Father Heart disease Grandmother Hypertension Brother Hypertension Social History Smoking Status: Never smoker alcohol intake: current details: occasionally substance use type: does not use caffeine: Yes what type of physical activity do you participate in: none seatbelt use: always do you feel safe at home: Yes additional social history: - Kendrick Both patient and retired HPI HPI Chief Complaint: pre surgical appt Details: CLAIRE HEADLEY, is a 77 F who presents to the office today for Medication adjustment so that her blood pressure is controlled prior to surgery 06/08/18. ROS Const Constitutional: No weight change, body ache, chills, fatigue, sleep problems, fever(s), change in appetite, snoring, weakness, frequent falls, headache(s) or excessive sweating Eyes Eyes: No change in vision, eye pain, light sensitivity or blurry vision ENT ENT: No headache(s), abnormal hearing, ear pain, tinnitus, nasal congestion, sore throat or neck pain Resp Respiratory: No snoring, cough, shortness of breath or wheezing Cardio Cardiology: No excessive sweating, chest pain at rest, chest pain with exertion, shortness of breath, dyspnea on exertion, palpitations, orthopnea or lightheadedness Gastro GI: No abdominal pain, change in bowel habits, constipation, diarrhea, vomiting, nausea/dyspepsia or cramping Genitourinary-Female: No burning urination, painful urination, urinary incontinence, urinary frequency, abnormal vaginal bleeding, pelvic pain or other Musc Musculoskeletal: No neck pain, abnormal walking, joint pain, back pain, limited range of motion, numbness or tingling Skin Skin: No redness, dry skin, itching, lesions, wounds or rash Neuro Neurology: No weakness, frequent falls, headache(s), abnormal hearing, abnormal walking, numbness, tingling, abnormal speech, dizziness or memory loss Psych Psychiatric: No change in appetite, No memory loss, No anxiety, No depression, No Thoughts of harming yourself/Others Endo Endocrine: No fatigue, excessive sweating, cold intolerance, increased thirst/drinking, heat intolerance, flushing or increased hunger Aller/Imm Allergy/Immunologic: No wheezing, itchy eyes, hives or seasonal allergy symptoms Jeremi/Lymp Hematologic/Lymphatic: No easy bleeding, easy bruising or enlarged lymph nodes Exam Const General: cooperative Nutritional Appearance: average body habitus Resp Effort AND Inspection: normal respiratory effort, symmetric chest movement Auscultation: Bilateral: Clear to Auscultation Cardio Rate: regular rate Rhythm: regular rhythm Extrem General: no clubbing, cyanosis or edema Assessment AND Plan Problems 1. Bladder prolapse 2. Cystocele and rectocele with incomplete uterovaginal prolapse N81.2 hyst scheduled with alise 3. Essential hypertension I10 Plan This patient was seen for preoperative checkup because her blood pressure is not adequately controlled. She had been on valsartan and it was well controlled, was switched to losartan when valsartan became unavailable. I simply changed her back to valsartan added hydrochlorothiazide because I thought with the repair of her bladder problem being on a diuretic would not be a problem and I think this should take care of her blood pressure issues otherwise she had no complaints we simply discussed the upcoming surgery. Medications New: Coding Level of Care Code Off vis,est,level 3 Diagnoses Bladder prolapse Cystocele and rectocele with incomplete uterovaginal prolapse N81.2 Essential hypertension I10 Hypertension type: essential hypertension 06/03/18 1249 <Electronically signed by Kaid Rodarte DO> Date Kadi Rodarte DO Cosigner Signature: Date (if applicable) CC: CHEST PA AND LATERAL Observed: 06/02/2018 Status: F Source: [place] 10:09 AM [facility] REPOSITORY [facility] Imaging Services [address] [place] [address] Chest PA and Lateral MR#: [id number] Acct: [id number] Name: CLAIRE HEADLEY Rep #: [id number] : 1940 F 77 From: Niko Carrasquillo MD PCP: Kadi Rodarte DO Status: PRE [facility] Study: Chest PA and Lateral Date of Exam: 06/02/18 Exam# [id number] Ordering Dr: Elis Carrero MD STUDY: X-RAY CHEST REASON FOR EXAM: Female, 77 years old. Preoperative evaluation. TECHNIQUE: PA and lateral views of the chest. COMPARISON: None. FINDINGS: Hyperinflation. There is no demonstrated pleural abnormality. Normal size heart. Normal mediastinum and hailey. Normal visualized pulmonary arteries. There is atherosclerotic calcification of the aortic arch with tortuosity. There is demineralization of the osseous structures. Normal visualized ribs, clavicles, and shoulders. There is no demonstrated abnormality of the visualized soft tissue structures of the upper abdomen. RAD/Chest PA and Lateral IMPRESSION: Hyperinflation. Electronically Signed: Niko Carrasquillo MD at 10:30 EST Tel [phone], Service support , CC: Kadi Rodarte DO; Elis Carrero MD Sap Hana Developer: Signed URINALYSIS, ROUTINE Collected: 06/02/2018 Status: F Source: [place] (DIPSTICK) 10:03 AM [facility] REPOSITORY Order Comment: How was Urine Obtained? CLEAN CATCH TYPE CODE TESTS RESULT OUT OF RANGE REFERENCE UNITS LAB L400.3000 Yellow Normal COLOR SEE COMMENT BELOW Result Comment: Visual Urine Color: GREEN LAB L400.3050 Clear Normal CLARITY Clear LAB L400.3200 Normal mg/dl Normal GLUCOSE, UR Normal LAB L400.3300 Negative mg/dL Normal BILIRUBIN URINE Negative LAB L400.3400 Negative mg/dl Normal KETONE UR Negative LAB L400.3465 1.002-1.030 Normal SP.GR. DIPSTX 1.010 LAB L400.3550 5.0 - 8.0 pH UR Normal 6.5 LAB L400.3600 Negative mg/dl PROT Normal DIPSTX Negative LAB L400.3700 Normal mg/dl Normal UROBILI Normal LAB L400.3750 Negative Normal NITRITE UR Negative LAB L400.3780 Negative /ul Normal OCCULT BLOOD-UR Negative LAB L400.3800 Negative /ul LEUK Normal ESTERASE Negative Performed By: #### L400.2010 #### [facility] [address] [facility]. [place], [place], [id number] Observed: 06/02/2018 Status: F Source: [place] CULTURE, URINE 10:02 AM [facility] REPOSITORY Urine Culture ORGANISM 1: Enterococcus faecalis [place] Count >100,000 Enterococcus faecalis: REACTION Ampicillin $ <=2 S Benzylpenicillin NF 2 S Ciprofloxacin $ 1 S Gentamicin SYN-S S Levofloxacin $ 1 S Linezolid $$$$ 1 S Nitrofurantoin $ <=16 S Streptomycin $ SYN-S S Tetracycline NF >=16 R Vancomycin $ <=0.5 S (NF) indicates non-formulary drug at [facility]. Approval by Infectious Disease Specialist required before non-formulary drugs may be ordered and/or dispensed. * CLSI guidelines does not recommend testing of cephalosporins. This interpretation is deduced from Beta-lactam/penicillin results. Performed By: #### M100.0650 #### [facility] [address] [facility]. [place], [place], [address] CBC-COMPLETE BLOOD CNT Collected: 06/02/2018 Status: F Source: ER[place] NO DIFF 9:50 AM [facility] REPOSITORY TYPE CODE TESTS RESULT OUT OF RANGE REFERENCE UNITS LAB L100.1000 4.4-11.0 K/mm3 Low WBC 3.7 LAB L100.1200 4.2-5.4 M/mm3 Normal RBC 4.42 LAB L100.1300 12.0-15.0 g/dl Normal HGB 13.5 LAB L100.1400 37-47 % Normal HCT 41.0 LAB L100.1500 81-99 fL Normal MCV 92.8 LAB L100.1600 27.0-32.0 pg Normal MCH 30.5 LAB L100.1700 32-36 g/gl Normal MCHC 32.9 LAB L100.1810 11.6-14.6 % Normal RDW CV 14.0 LAB L100.1820 35.1-43.9 fl High RDW SD 45.9 LAB L100.1900 150-450 K/mm3 Normal PLT 205 LAB L100.2000 6.2-12.0 fl Normal MPV 11.7 Performed By: #### L100.0500 #### [facility] [address] [place], [address] BASIC METABOLIC Collected: 06/02/2018 Status: F Source: ER[place] PROFILE (BMP) 9:50 AM [facility] REPOSITORY TYPE CODE TESTS RESULT OUT OF RANGE REFERENCE UNITS LAB L501.0100 74-106 mg/dL Normal GLU 86 Result Comment: Please note revised GLUCOSE reference range effective 2017. LAB L501.1000 7-18 mg/dL Normal BUN 15 LAB L501.1100 0.55-1.02 mg/dL Normal CREAT,SERUM 0.69 Result Comment: The validity of the calculated GFR AND GFRAA in patients over 70 years has not been determined. Clinical correlation is essential. LAB L501.1110 >60 mL/min Normal EST GFR 88 Result Comment: Non- GFR Calc LAB L501.1115 >60 mL/min Normal EST GFR - AA 107 Result Comment: GFR Calc LAB L501.1300 10-20 RATIO High BUN/CRE 21.8 LAB L501.2200 8.5-10.1 mg/dL CA Normal 8.9 LAB L501.5300 136-145 mmol/L NA Normal 139 LAB L501.5600 3.5-5.1 mmol/L K Normal 3.7 LAB L501.5900 98-107 mmol/L CL Normal 106 LAB L501.6100 21.0-32.0 mmol/L Normal CO2 29.0 LAB L501.6200 5-15 Low GAP 4 Performed By: #### L500.2500 #### [facility] [address] [place], [address] TYPE AND SCREEN Collected: 06/02/2018 Status: F Source: ER[place] 9:50 AM [facility] REPOSITORY Order Comment: Surgery Date: 06/08/18 Hx of Preganancy in last 3 Months No Ever experience any problems with transfusion(s)? N Hx of Transfusion in last 3 Months N Reason for Type AND Screen/Red Cells: SURGERY SURGICAL PROCEDURE: 19636 TYPE CODE TESTS RESULT OUT OF RANGE REFERENCE UNITS LAB B10.0800 B Normal BLOOD TYPE GEL POSITIVE LAB B100.4000 Normal Antibody NEGATIVE Screen Performed By: #### B101.7475 #### [facility] [address] [place], [address] PRE K LEAD TEACHER OFFICE VISIT Observed: 05/10/2018 Status: F Source: [place] REPORT 11:58 AM [facility] REPOSITORY [facility] [place] [address] [place] [address] OFFICE VISIT Date of Service: 05/10/18 MR#: [id number] Acct: [id number] Name: CLAIRE HEADLEY Rep #: [id number] : 1940 Provider: Lizbeth Bill MD Age/Sex: 77/F Location: [facility] [place] Status: Signed Intake Vital Signs05/10/18 Height 5 ft 4 in 05/10/18 Weight: 168 lb 5 oz 05/10/18 Body Mass Index (BMI) 28.8 05/10/18 Blood Pressure 150/90 H Intake Visit Reasons: Pre Op appointment Chief Complaint: pre surgical appt Tap Puller Required: No Is patient in pain?: No Allergies cephaeline Adverse Reaction (Unknown, Verified 05/10/18 11:19) did not work Medications cholecalciferol (vitamin D3) 1,000 unit capsule 1,000 unit PO QDAY 10/14/17 [History Confirmed 05/10/18] meclizine 25 mg tablet 25 mg PO ONCE 10/14/17 [History Confirmed 05/10/18] amlodipine 5 mg tablet 5 mg PO QDAY #90 tab 02/24/18 [Rx Confirmed 05/10/18] doxycycline hyclate 100 mg capsule 100 mg PO BID 03/03/18 [History Confirmed 05/10/18] estradiol 0.01% (0.1 mg/gram) vaginal cream 2 g VAGINAL DAILY 03/03/18 [History Confirmed 05/10/18] omeprazole 20 mg capsule,delayed release 20 mg PO QDAY #90 cap 03/03/18 [Rx Confirmed 05/10/18] losartan 100 mg tablet 100 mg PO DAILY #90 tab 04/22/18 [Rx Confirmed 05/10/18] Is last menstrual period known: No Post menopausal: Yes Patient : No : No [facility] Medical History Bladder prolapse (Acute) GERD (gastroesophageal reflux disease) (Chronic) High blood pressure (Chronic) Back problem (Chronic) Surgical History History of lumpectomy of left breast (Acute) S/P dilation and curettage (Resolved) Family History Mother Anemia Heart disease Hypertension Father Heart disease Grandmother Hypertension Brother Hypertension Social History Smoking Status: Never smoker alcohol intake: current details: occasionally substance use type: does not use caffeine: Yes what type of physical activity do you participate in: none seatbelt use: always do you feel safe at home: Yes additional social history: - Kendrick Both patient and retired HPI Pre Op appointment: Details: CLAIRE HEADLEY is a 77 year old who presents for preop appointment. she is scheduled for a hysterectomy and pelvic floor repair by the urogynecologist. she denies any new medical problem. she is still struggling vaginal bulge, pressure and pain. blood pressure is high today- may need adjusted. Pregancy History 2 Elective abortions Hx Para 2 Spontaneous abortions Past Pregnancies Del. DatName GA/WeeksOutcome Route Bth WeiEmani [facility] LocaProviderFOB e ht en ia tn Unknown Chucky- 1963 Unknown Larry-196 4 ROS Const Constitutional: Denies poor appetite, headache(s), fever(s), increased appetite, weight gain, weight loss or fatigue ENT ENT: Denies dry mouth GI GI: Reports as per HPI; denies vomiting, nausea, abdominal pain or constipation : Reports as per HPI, pelvic pain, urinary hesitancy, urinary urgency, urinary frequency and urinary incontinence; denies difficulty urinating, blood in urine, vaginal discharge, vaginal dryness, vaginal odor, vaginal itching, other, painful urination or nipple discharge Skin Skin/Breast: Denies hair loss, change in hair, dry skin, breast pain, breast skin changes, breast lump or nipple discharge Exam Const General: cooperative, healthy appearing, comfortable, no acute distress, well developed Nutritional Appearance: average body habitus Orientation: alert HENNV Head: normal to inspection, normocephalic Ears: hearing grossly normal bilaterally, external ears normal Nose: external nose normal, nares normal Face and sinus: normal facial exam Neck Neck: normal visual inspection, trachea midline, no lymphadenopathy Thyroid: thyroid normal Resp Effort AND Inspection: normal respiratory effort GI Inspection: normal to inspection, non-distended Palpation: soft, no hepatosplenomegaly Musc Other: gross motor intact no deficits, full bilateral strength Skin General: no rashes or lesions noted Neuro Motor: muscle tone normal throughout Assessment AND Plan Problems 1. Bladder prolapse 2. 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 pyridium given and discussed avoidance of foods 3. 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.2 05/10/18 1157 <Electronically signed by Lizbeth Bill MD> Date Lizbeth Richard Signature: Date (if applicable) CC: INTERNAL MEDICINE Observed: 03/03/2018 Status: F Source: [place] OFFICE VISIT 2:54 PM [facility] [address] [place] [address] [place] [address] OFFICE VISIT Date of Service: 03/03/18 MR#: [id number] Acct: [id number] Name: CLAIRE HEADLEY Rep #: [id number] : 1940 Provider: Kadi Rodarte DO Age/Sex: 77/F Location: [facility] Status: Signed Intake Vital Signs03/03/18 Height 5 ft 4 in Intake Visit Reasons: FU Chief Complaint: follow-up visit Is patient in pain?: Yes (PELVIC PAIN) Pain scale (1-10): 7 Allergies cephaeline Adverse Reaction (Unknown, Verified 01/12/18 08:08) did not work Medications cholecalciferol (vitamin D3) 1,000 unit capsule 1,000 unit PO QDAY 10/14/17 [History Confirmed 01/12/18] meclizine 25 mg tablet 25 mg PO ONCE 10/14/17 [History Confirmed 03/03/18] amlodipine 5 mg tablet 5 mg PO QDAY #90 tab 02/24/18 [Rx] doxycycline hyclate 100 mg capsule 100 mg PO BID 03/03/18 [History Confirmed 03/03/18] estradiol 0.01% (0.1 mg/gram) vaginal cream 2 g VAGINAL DAILY 03/03/18 [History Confirmed 03/03/18] losartan 100 mg tablet 100 mg PO DAILY 03/03/18 [History Confirmed 03/03/18] omeprazole 20 mg capsule,delayed release 20 mg PO QDAY #90 cap 03/03/18 [Rx Confirmed 03/03/18] phenazopyridine 100 mg tablet 100 mg PO TID PRN 0 Days #20 tab 03/03/18 [Rx Confirmed 03/03/18] PFSH Medical History Bladder prolapse (Acute) GERD (gastroesophageal reflux disease) (Chronic) High blood pressure (Chronic) Back problem (Chronic) Surgical History History of lumpectomy of left breast (Acute) S/P dilation and curettage (Resolved) Family History Mother Anemia Heart disease Hypertension Father Heart disease Grandmother Hypertension Brother Hypertension Social History Smoking Status: Never smoker alcohol intake: current details: occasionally substance use type: does not use caffeine: Yes what type of physical activity do you participate in: none seatbelt use: always do you feel safe at home: Yes additional social history: - Kendrick Both patient and retired HPI HPI Chief Complaint: follow-up visit Details: CLAIRE HEADLEY, is a 77 F who presents to the office today for follow up on her bronchitis ROS Const Constitutional: No weight change, body ache, chills, fatigue, sleep problems, fever(s), change in appetite, snoring, weakness, frequent falls, headache(s) or excessive sweating Eyes Eyes: No change in vision, eye pain, light sensitivity or blurry vision ENT ENT: No headache(s), abnormal hearing, ear pain, tinnitus, nasal congestion, sore throat or neck pain Resp Respiratory: No snoring, cough, shortness of breath or wheezing Cardio Cardiology: No excessive sweating, chest pain at rest, chest pain with exertion, shortness of breath, dyspnea on exertion, palpitations, orthopnea or lightheadedness Gastro GI: No abdominal pain, change in bowel habits, constipation, diarrhea, vomiting, nausea/dyspepsia or cramping Genitourinary-Female: No burning urination, painful urination, urinary incontinence, urinary frequency, abnormal vaginal bleeding, pelvic pain or other Musc Musculoskeletal: No neck pain, abnormal walking, joint pain, back pain, limited range of motion, numbness or tingling Skin Skin: No redness, dry skin, itching, lesions, wounds or rash Neuro Neurology: No weakness, frequent falls, headache(s), abnormal hearing, abnormal walking, numbness, tingling, abnormal speech, dizziness or memory loss Psych Psychiatric: No change in appetite, No memory loss, No anxiety, No depression, No Thoughts of harming yourself/Others Endo Endocrine: No fatigue, excessive sweating, cold intolerance, increased thirst/drinking, heat intolerance, flushing or increased hunger Aller/Imm Allergy/Immunologic: No wheezing, itchy eyes, hives or seasonal allergy symptoms Jeremi/Lymp Hematologic/Lymphatic: No easy bleeding, easy bruising or enlarged lymph nodes Exam Const General: cooperative Nutritional Appearance: average body habitus Resp Effort AND Inspection: normal respiratory effort, symmetric chest movement Auscultation: Bilateral: Clear to Auscultation Cardio Rate: regular rate Rhythm: regular rhythm Extrem General: no clubbing, cyanosis or edema Assessment AND Plan Problems 1. Bladder prolapse 2. 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 pyridium given and discussed avoidance of foods 3. Lichen sclerosus L90.0 clobetasol 4. Hypertension I10 Plan This patient was here for follow-up on her bronchitis she no longer has a cough and her chest is completely clear. I told her to stop the antibiotic as it was upsetting her stomach. I also prescribed Pyridium for the bladder spasms telling her not to start it until the diagnostic procedures done by the uro-home health cna were completed. Her omeprazole was refilled and she is to be rechecked in my office on an as-needed basis. Medications New: Discontinued: phenazopyridine (Pyridium) Discontinued Reason: Pt100 mg PO TID PRN lefty Ames no longer taking Coding Level of Care Code Off vis,est,level 3 Diagnoses Bladder prolapse Chronic female pelvic pain R10.2; G89.29 Lichen sclerosus L90.0 Hypertension I10 03/03/18 1034 <Electronically signed by Kadi Rodarte DO> Date Kadi Rodarte DO Cosigner Signature: Date (if applicable) CC: PELVIC (NON ) Observed: 01/29/2018 Status: F Source: [place] 7:33 AM [facility] REPOSITORY [facility] Imaging Services [address] [place] [address] Pelvic (Non ) MR#: [id number] Acct: [id number] Name: CLAIRE HEADLEY Rep #: [id number] : 1940 F 77 From: Christiano Ziegler MD PCP: Kadi Rodarte, Status: REG CLI Study: Pelvic (Non ) Date of Exam: 01/29/18 Exam# [id number] Ordering Dr: Angie Calderon PHOTO EQUIPMENT TECHNICIAN-Charline STUDY: ULTRASOUND OF THE FEMALE PELVIS - COMPLETE REASON FOR EXAM: Female, 77 years old. Ovarian cyst TECHNIQUE: Transabdominal and Transvaginal TECHNICAL QUALITY: Adequate. COMPARISON: None. FINDINGS: The uterus is retroflexed and is in a midline position. The uterus measures 7.6 x 6.2 x 4.5 cm. There is a tiny nabothian cyst. The endometrium measures 2.5 mm in thickness, and is hyperechoic. There is no demonstrated endometrial mass. There are at least 2 hypoechoic lesions within the anterior uterine body measuring up to 2.3 cm. No I.U.D. - The right ovary is visualized. The right ovary measures 2.3 x 2.4 x 1.8 cm. There is a 1.4 cm anechoic lesion associated with the right ovary. There is also a 4 mm calculus within the ovary. There is normal arterial and normal venous vascularity. The left ovary is not visualized. No left adnexal mass. There is no fluid in the cul-de-sac. The pre void volume of the bladder was 337 ml. Polycystic ovary disease: No. US/Pelvic (Non ) IMPRESSION: 1. Intramural fibroids of the anterior uterine body wall measuring up to 2.3 cm. 2. 1.9 cm simple appearing right ovarian cyst. 3. 4 mm calcification within the right ovary. Electronically Signed: Christiano Ziegler MD at 1:06 EDT Tel , Service support , CC: MIKEY Calderon; Kadi Rodarte DO Sap Hana Developer: Signed TRANSVAGINAL Observed: 01/29/2018 Status: F Source: [place] NON- 7:33 AM [facility] REPOSITORY [facility] Imaging Services [address] [place] [id number] Transvaginal Non- MR#: [id number] Acct: [id number] Name: CLAIRE HEADLEY Rep #: [id number] : 1940 F 77 From: Christiano Ziegler MD PCP: Kadi Rodarte DO Status: REG CLI Study: Transvaginal Non- Date of Exam: 01/29/18 Exam# [id number] Ordering Dr: Angie Calderon PHOTO EQUIPMENT TECHNICIAN-C STUDY: ULTRASOUND OF THE FEMALE PELVIS - COMPLETE REASON FOR EXAM: Female, 77 years old. Ovarian cyst TECHNIQUE: Transabdominal and Transvaginal TECHNICAL QUALITY: Adequate. COMPARISON: None. FINDINGS: The uterus is retroflexed and is in a midline position. The uterus measures 7.6 x 6.2 x 4.5 cm. There is a tiny nabothian cyst. The endometrium measures 2.5 mm in thickness, and is hyperechoic. There is no demonstrated endometrial mass. There are at least 2 hypoechoic lesions within the anterior uterine body measuring up to 2.3 cm. No I.U.D. - The right ovary is visualized. The right ovary measures 2.3 x 2.4 x 1.8 cm. There is a 1.4 cm anechoic lesion associated with the right ovary. There is also a 4 mm calculus within the ovary. There is normal arterial and normal venous vascularity. The left ovary is not visualized. No left adnexal mass. There is no fluid in the cul-de-sac. The pre void volume of the bladder was 337 ml. Polycystic ovary disease: No. US/Transvaginal Non- IMPRESSION: 1. Intramural fibroids of the anterior uterine body wall measuring up to 2.3 cm. 2. 1.9 cm simple appearing right ovarian cyst. 3. 4 mm calcification within the right ovary. Electronically Signed: Christiano Ziegler MD at 1:06 EDT Tel , Service support , CC: MIKEY Calderon; Kadi Rodarte DO Sap Hana Developer: Signed Observed: 01/12/2018 Status: F Source: [place] CULTURE, URINE 4:32 PM [facility] REPOSITORY Urine Culture Possible skin contamination. ORGANISM 1: Mixed Gram Positive Organisms Broxton Count >100,000 Performed By: #### [id number] #### [facility] [address] [place], [address] PRE K LEAD TEACHER OFFICE VISIT Observed: 01/12/2018 Status: F Source: [place] REPORT 8:53 AM [facility] REPOSITORY [facility] [address] [place] [address] OFFICE VISIT Date of Service: 01/12/18 MR#: [id number] Acct: [id number] Name: CLAIRE HEADLEY Rep #: [id number] : 1940 Provider: Lizbeth Bill MD Age/Sex: 77/F Location: [facility] Status: Signed Intake Vital Signs01/12/18 Height 5 ft 4 in 01/12/18 Weight: 167 lb 4 oz 01/12/18 Body Mass Index (BMI) 28.7 01/12/18 Blood Pressure 151/86 Intake Visit Reasons: PELVIC PAIN Chief Complaint: pelvic pain Tap Puller Required: No Is patient in pain?: Yes Allergies cephaeline Adverse Reaction (Unknown, Verified 01/12/18 08:08) did not work Medications amlodipine 5 mg tablet 5 mg PO QDAY 10/14/17 [History Confirmed 01/12/18] cholecalciferol (vitamin D3) 1,000 unit capsule 1,000 unit PO QDAY 10/14/17 [History Confirmed 01/12/18] meclizine 25 mg tablet 25 mg PO ONCE 10/14/17 [History Confirmed 01/12/18] omeprazole 20 mg capsule,delayed release 20 mg PO QDAY 10/14/17 [History Confirmed 01/12/18] valsartan 320 mg tablet 320 mg PO QDAY 10/14/17 [History Confirmed 01/12/18] clobetasol 0.05 % topical cream 1 applic TOPICAL QAM AND QPM 12/30/17 [History Confirmed 01/12/18] phenazopyridine 100 mg tablet 100 mg PO TID PRN #90 tab 01/12/18 [Rx Confirmed 01/12/18] Is last menstrual period known: No Post menopausal: Yes Patient : No : No PFSH Medical History GERD (gastroesophageal reflux disease) (Chronic) High blood pressure (Chronic) Back problem (Chronic) Surgical History History of lumpectomy of left breast (Acute) S/P dilation and curettage (Resolved) Family History Mother Anemia Heart disease Hypertension Father Heart disease Grandmother Hypertension Brother Hypertension Social History Smoking Status: Never smoker alcohol intake: current details: occasionally substance use type: does not use caffeine: Yes what type of physical activity do you participate in: none seatbelt use: always do you feel safe at home: Yes additional social history: - Kendrick Both patient and retired HPI PELVIC PAIN : Details: CLAIRE HEADLEY is a 77 year old who presents for lower pelvic cramping on both sides and in the suprapubic area. she has had it for a while but it is increases. it is worse with certain positions but not reliably the same position. she denies any bleeding or abnormal discharge. she has had a pessary for a few months which helped the prolapse but she still has the pain. she is also having rawness and burning. she has been on several different creams with some improvement but not persistent. she hasn't used any new products. she isn't sexually active. she hasn't had a biopsy previously. she has had this in the past and she felt better with osphena, and then tried it again and it hasn't worked. she also tried vaginal estrogen cream. she has had UTIs intermittently with the most recent being 2 weeks ago but that is the only one she's had i nthe lat year. she had an 18 mm simple cyst on her right ovary that is shcedule for a follow up . Female Reproductive History Questions: Sexually active: No Pregancy History 2 Elective abortions Hx Para 2 Spontaneous abortions Past Pregnancies Del. DatName GA/WeeksOutcome [facility] LocaProviderFOB e ht en tn Unknown Chucky- 1963 Unknown Larry-196 4 ROS Const Constitutional: Denies poor appetite, headache(s), fever(s), increased appetite, weight gain, weight loss or fatigue Cardio Card: Denies chest pain Resp Resp: Denies dyspnea or cough GI GI: Reports as per HPI and constipation; denies vomiting, nausea or abdominal pain : Reports as per HPI, vaginal dryness and urinary incontinence (mild incontinence); denies urinary urgency, vaginal discharge, urinary frequency, vaginal itching, vaginal odor, urinary hesitancy, difficulty urinating, painful urination or nipple discharge Skin Skin/Breast: Denies breast lump, breast pain, breast skin changes, nipple discharge or change in hair Exam Const General: cooperative, healthy appearing, comfortable, no acute distress, well developed Nutritional Appearance: average body habitus Orientation: alert HENMT Head: normal to inspection, normocephalic Neck Neck: normal visual inspection, trachea midline Thyroid: thyroid normal Resp Effort AND Inspection: normal respiratory effort GI Inspection: normal to inspection, non-distended Palpation: soft, no hepatosplenomegaly, tender suprapubicly General: No bladder normal to palpation (tender) External Female Exam: abnormal external appearance (atrophy, chronic skin changes due to moisture), normal appearance of the urethra Urethra: normal appearance of the urethra, normal palpation, no discharge Speculum Exam - Vagina: normal appearance of the vagina, normal vaginal discharge Speculum Exam - Cervix: normal appearance of the cervix, nontender Bimanual Exam- Vagina AND Uterus: No bladder normal to palpation (tender), No cervical tenderness, normal bimanual exam, uterine size normal, uterine shape normal, uterine mobility normal, uterine consistency normal, normal cervical palpation, uterus non-tender Bimanual Exam- Adnexa, other: normal adnexae, adnexae mobile, no adnexal masses, rectocele, cystocele Pelvic Support: rectocele, cystocele Skin General: no rashes or lesions noted Results [facility] Office Urine Color Yellow Last Edit by Gill Amador on 01/12/18 08:18 Office Urine Clarity Clear Last Edit by Gill Amador on 01/12/18 08:18 Assessment AND Plan Problems 1. Cystocele and rectocele with incomplete uterovaginal prolapse N81.2 doughnut pessary 2. Lichen sclerosus L90.0 clobetasol 3. Atrophic vaginitis N95.2 has used vaginal estrogen in past. recommend skin protectant PRN for chronic moisture 4. Cyst of right ovary N83.201 repeat ultrasound ordered 5. 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 pyridium given and discussed avoidance of foods Plan recommend repeat imaging, urine culture. see problem list details. suspect painful bladder syndrome recommend urogyn consult. Orders Orders: Medications New: Coding Level of Care Code Off vis,est,level 4 Diagnoses Cystocele and rectocele with incomplete uterovaginal prolapse N81.2 Lichen sclerosus L90.0 Atrophic vaginitis N95.2 Cyst of right ovary N83.201 Chronic female pelvic pain R10.2; G89.29 01/12/18 0853 <Electronically signed by Lizbeth Bill MD> Date Lizbeth Bill MD Cosigner Signature: Date (if applicable) CC: PRE K LEAD TEACHER OFFICE VISIT Observed: 12/30/2017 Status: F Source: [place] REPORT 9:38 AM [facility] [address] [place] [address] OFFICE VISIT Date of Service: 12/30/17 MR#: [id number] Acct: [id number] Name: CLAIRE HEADLEY Rep #: [id number] : 1940 Provider: MIKEY Calderon Age/Sex: 77/F Location: [facility] Status: Signed Intake Vital Signs12/30/17 Height 5 ft 4 in 12/30/17 Weight: 168 lb 8 oz 12/30/17 Body Mass Index (BMI) 28.9 12/30/17 Blood Pressure 138/90 Intake Visit Reasons: 4 week follow up Is patient in pain?: Yes Pain scale (1-10): 8 Allergies cephaeline Adverse Reaction (Unknown, Verified 12/30/17 09:04) did not work Medications amlodipine 5 mg tablet 5 mg PO QDAY 10/14/17 [History Confirmed 12/30/17] cholecalciferol (vitamin D3) 1,000 unit capsule 1,000 unit PO QDAY 10/14/17 [History Confirmed 12/30/17] meclizine 25 mg tablet 25 mg PO ONCE 10/14/17 [History Confirmed 12/30/17] omeprazole 20 mg capsule,delayed release 20 mg PO QDAY 10/14/17 [History Confirmed 12/30/17] valsartan 320 mg tablet 320 mg PO QDAY 10/14/17 [History Confirmed 12/30/17] clobetasol 0.05 % topical cream 1 applic TOPICAL QAM AND QPM 12/30/17 [History Confirmed 12/30/17] Nurse's Note: Pt. not using topical creams. Using vasaline PFSH Medical History GERD (gastroesophageal reflux disease) (Chronic) High blood pressure (Chronic) Back problem (Chronic) Surgical History History of lumpectomy of left breast (Acute) S/P dilation and curettage (Resolved) Family History Mother Anemia Heart disease Hypertension Father Heart disease Grandmother Hypertension Brother Hypertension Social History Smoking Status: Never smoker alcohol intake: current details: occasionally substance use type: does not use caffeine: Yes what type of physical activity do you participate in: none seatbelt use: always do you feel safe at home: Yes additional social history: - Kendrick Both patient and retired HPI 4 week follow up : Details: CLAIRE HEADLEY is a 77 year old who presents for 4 week follow up start of clobetesol and estrace cream plus pessary check. She is still having lower abdominal pain. States stabbing, rates as 8 on 1-10 scale. She has US indicating simple 1.4 right ovarian cyst and 2 small <3cm uterine fibroids. She did not start clobetesol or estrace. Using vaseline and not helpful. Pregancy History 2 Elective abortions Hx Para 2 Spontaneous abortions Past Pregnancies Del. DatName GA/WeeksOutcome [facility] LgAnesthesDel LocaProviderFOB e ht en tn Unknown Chucky- 1963 Unknown Larry-196 4 Exam External Female Exam: other ( thin tissue bilateral lower vulva and around clitoris/silver whitening) Other: Pessary removed, cleaned and replaced. No excoriations with normal discharge, No bleeding. Tolerated well. Persistent vaginal prolapse noted. Assessment AND Plan Problems 1. Lichen sclerosus L90.0 2. Atrophic vaginitis N95.2 3. Vaginal pessary in situ Z92.89 Plan consider that pain may be related to prolapse vs other etiology, GI etc. States pain was occuring prior to having pessary. Scheduled for [address]nd op[address] Dr. Bill 01/12 Needs pessary check and repeat US in 3 months. Will stop vaseline and start clobetesol bid X 2 weeks then daily for 2 weeks. Prefers to hold estrace cream. Orders Orders: Medications New: Coding Level of Care Code Off vis,est,level 3 Diagnoses Lichen sclerosus L90.0 Atrophic vaginitis N95.2 Vaginal pessary in situ Z92.89 12/30/17 0938 <Electronically signed by Angie STEPHENSON> Date Angie STEPHENSON Cosigner Signature: Date (if applicable) CC: DOWNTIME REPORT Observed: 12/10/2017 Status: F Source: [place] 12:24 PM [facility] Medical Records Department [address] [place] [address] Downtime Report MR#: [id number] Acct: [id number] Name: HEADLEYCLAIRE LANDA HARRISON Rep #: [id number] : 1940 77 From: Cam French PCP: Kadi Rodarte, Status: REG CLI This patient was seen during an EMR downtime November 23, 2017 - November 30, 2017. This patient may have a combination of paper and electronic documentation or all paper documentation. All documentation is viewable within the e-chart portion of [email or web address] for each patient visit. PELVIC (NON ) Observed: 12/07/2017 Status: F Source: [place] 1:04 PM [facility] Imaging Services [address] [place] [address] Pelvic (Non ) MR#: [id number] Acct: [id number] Name: DEANGELO HEADLEYSumit TERRY Rep #: [id number] : 1940 F 77 From: Andres Hua MD PCP: Kadi Rodarte DO Status: REG CLI Study: Pelvic (Non ) Date of Exam: 12/07/17 Exam# [id number] Ordering Dr: Angie Calderon STUDY: ULTRASOUND TRANSVAGINAL CLINICAL: Female, 77 years old. Pelvic pain, recent chronic urinary tract infections, pessary placement. Postmenopausal. TECHNIQUE: Transabdominal and transvaginal pelvic ultrasound. COMPARISON: None. FINDINGS: The transvaginal scan is partially obscured by the pessary. The uterus is retroverted, measures 6.9 x 4.4 x 5.0 cm, with 2 suspected small fibroid measuring 2.9 and 3.2 cm respectively. Endometrium 4 mm maximum thickness, normal echotexture. No suspicious features. Normal cervix. Right ovary 28 x 24 x 15 mm, appropriate vascular flow. Right ovarian simple appearing follicular cyst measuring 18 x 12 x 12 mm. No right adnexal mass, suspicious cyst, or free fluid. The left ovary measures 32 x 30 x 21 mm, normal echotexture with appropriate Doppler flow. No left adnexal mass, suspicious cyst or free fluid. No cul-de-sac free fluid. US/Pelvic (Non ) IMPRESSION: Small uterine fibroids. Normal endometrium. 18 x 12 mm follicular right ovarian cyst with simple cystic features. Atypical for the patient's age but with indolent features. Surveillance imaging would be appropriate, follow-up transabdominal ultrasound 3 months initially. No other acute intra-abdominal process is evident. Electronically Signed: Andres Hua, at 15:44 EDT Tel , Service support , CC: MIKEY Calderon; Kadi Rodarte DO Sap Hana Developer: Signed TRANSVAGINAL Observed: 12/07/2017 Status: F Source: [place] NON- 1:04 PM [facility] REPOSITORY [facility] Imaging Services [address] [place] [id number] Transvaginal Non- MR#: [id number] Acct: [id number] Name: CLAIRE HEADLEY Rep #: [id number] : 1940 F 77 From: Andres Hua MD PCP: Kadi Rodarte DO Status: REG CLI Study: Transvaginal Non- Date of Exam: 12/07/17 Exam# [id number] Ordering Dr: Angie Calderon SEEMA STUDY: ULTRASOUND TRANSVAGINAL CLINICAL: Female, 77 years old. Pelvic pain, recent chronic urinary tract infections, pessary placement. Postmenopausal. TECHNIQUE: Transabdominal and transvaginal pelvic ultrasound. COMPARISON: None. FINDINGS: The transvaginal scan is partially obscured by the pessary. The uterus is retroverted, measures 6.9 x 4.4 x 5.0 cm, with 2 suspected small fibroid measuring 2.9 and 3.2 cm respectively. Endometrium 4 mm maximum thickness, normal echotexture. No suspicious features. Normal cervix. Right ovary 28 x 24 x 15 mm, appropriate vascular flow. Right ovarian simple appearing follicular cyst measuring 18 x 12 x 12 mm. No right adnexal mass, suspicious cyst, or free fluid. The left ovary measures 32 x 30 x 21 mm, normal echotexture with appropriate Doppler flow. No left adnexal mass, suspicious cyst or free fluid. No cul-de-sac free fluid. US/Transvaginal Non- IMPRESSION: Small uterine fibroids. Normal endometrium. 18 x 12 mm follicular right ovarian cyst with simple cystic features. Atypical for the patient's age but with indolent features. Surveillance imaging would be appropriate, follow-up transabdominal ultrasound 3 months initially. No other acute intra-abdominal process is evident. Electronically Signed: Andres Melita, at 15:44 EDT Tel , Service support , CC: MIKEY Calderon; Kadi Rodarte DO Sap Hana Developer: Signed Observed: 12/02/2017 Status: F Source: [place] CULTURE, URINE 11:23 AM [facility] REPOSITORY Urine Culture ORGANISM 1: Mixed Gram Positive Organisms Broxton Count 25,000-50,000 MIX CULTURE Mixed contaminants. Submit a new specimen if indicated. Performed By: #### M100.0650 #### [facility] Qu[facility]ano. [place], [place], [address] PRE K LEAD TEACHER OFFICE VISIT Observed: 12/02/2017 Status: F Source: [place] REPORT 9:46 AM [facility] [address] [place], [place] [address] OFFICE VISIT Date of Service: 12/02/17 MR#: [id number] Acct: [id number] Name: CLAIRE HEADLEY Rep #: [id number] : 1940 Provider: MIKEY Calderon Age/Sex: 77/F Location: [facility] [place] Status: Signed Intake Vital Signs12/02/17 Height 5 ft 4 in 12/02/17 Weight: 166 lb 8 oz 12/02/17 Body Mass Index (BMI) 28.5 12/02/17 Blood Pressure 149/85 Intake Visit Reasons: fu Chief Complaint: 4 week follow up, vaginal irritation Tap Puller Required: No Is patient in pain?: Yes Allergies No Known Allergies Allergy (Verified 12/02/17 09:26) Medications amlodipine 5 mg tablet 5 mg PO QDAY 10/14/17 [History Confirmed 11/04/17] cholecalciferol (vitamin D3) 1,000 unit capsule 1,000 unit PO QDAY 10/14/17 [History Confirmed 11/04/17] meclizine 25 mg tablet 25 mg PO ONCE 10/14/17 [History Confirmed 11/04/17] omeprazole 20 mg capsule,delayed release 20 mg PO QDAY 10/14/17 [History Confirmed 11/04/17] valsartan 320 mg tablet 320 mg PO QDAY 10/14/17 [History Confirmed 11/04/17] estradiol 0.01% (0.1 mg/gram) vaginal cream See Label Instructions VAGINAL .COMPLEX #42.5 g 10/28/17 [Rx Confirmed 11/04/17] clobetasol 0.05 % topical cream 1 applic TOPICAL .COMPLEX #15 g 11/04/17 [Rx Confirmed 11/04/17] Is last menstrual period known: No Post menopausal: Yes Patient : No : No PFSH Medical History GERD (gastroesophageal reflux disease) (Chronic) High blood pressure (Chronic) Back problem (Chronic) Surgical History History of lumpectomy of left breast (Acute) S/P dilation and curettage (Resolved) Family History Mother Anemia Heart disease Hypertension Father Heart disease Grandmother Hypertension Brother Hypertension Social History Smoking Status: Never smoker alcohol intake: current details: occasionally substance use type: does not use caffeine: Yes what type of physical activity do you participate in: none seatbelt use: always do you feel safe at home: Yes additional social history: - Kendrick Both patient and retired HPI fu: Details: CLAIRE HEADLEY is a 77 year old who presents for follow up lichen sclerosis, atrophic vaginitis, pessary in situ. States external itching and irritation much improved. States having episodes of lower pelvic pain. Can not relate to diet, bladder or bowel habit. States very intense but does not last long. She is happy with benefit of pessary. Is considering surgery. Pregancy History 2 Elective abortions Hx Para 2 Spontaneous abortions Past Pregnancies Del. DatName GA/WeeksOutcome [facility] LocaProviderFOB e ht en tn Unknown Chucky- 1963 Unknown [id number] 4 Exam Bimanual Exam- Adnexa, other: cystocele, rectocele Pelvic Support: cystocele, rectocele Other: external vulva pale pink, no silver whitening. No erythema. Pessary removed, normal discharge, no excoriations Pessary cleaned and easily replaced Patient tolerated well Results BMSUA Office Urine Color YELLOW Last Edit by Gill Amador on 12/02/17 09:28 Office Urine Clarity Clear Last Edit by Gill Amador on 12/02/17 09:28 Assessment AND Plan Problems 1. Pelvic pain in female R10.2 2. Vaginal pessary in situ Z92.89 3. Atrophic vaginitis N95.2 4. Lichen sclerosus L90.0 5. 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 Submit a new specimen if indicated. Performed By: #### M100.0650 #### [facility] [address] [place], [address] PRE K LEAD TEACHER OFFICE VISIT Observed: 11/18/2017 Status: F Source: [place] REPORT 11:06 AM [facility] REPOSITORY [facility] [address] [place] [address] OFFICE VISIT Date of Service: 11/18/17 MR#: [id number] Acct: [id number] Name: CLAIRE HEADLEY Rep #: [id number] : 1940 Provider: MIKEY Calderon Age/Sex: 77/F Location: [facility] [place] Status: Signed Intake Vital Signs11/18/17 Height 5 ft 4 in 11/18/17 Weight: 167 lb 6 oz 11/18/17 Body Mass Index (BMI) 28.7 11/18/17 Blood Pressure 148/90 Intake Visit Reasons: 2 WEEK FOLLOW UP Chief Complaint: med check Tap Puller Required: No Is patient in pain?: No Allergies No Known Allergies Allergy (Verified 11/18/17 10:30) Medications amlodipine 5 mg tablet 5 mg PO QDAY 10/14/17 [History Confirmed 11/04/17] cholecalciferol (vitamin D3) 1,000 unit capsule 1,000 unit PO QDAY 10/14/17 [History Confirmed 11/04/17] meclizine 25 mg tablet 25 mg PO ONCE 10/14/17 [History Confirmed 11/04/17] omeprazole 20 mg capsule,delayed release 20 mg PO QDAY 10/14/17 [History Confirmed 11/04/17] valsartan 320 mg tablet 320 mg PO QDAY 10/14/17 [History Confirmed 11/04/17] estradiol 0.01% (0.1 mg/gram) vaginal cream See Label Instructions VAGINAL .COMPLEX #42.5 g 10/28/17 [Rx Confirmed 11/04/17] clobetasol 0.05 % topical cream 1 applic TOPICAL .COMPLEX #15 g 11/04/17 [Rx Confirmed 11/04/17] ciprofloxacin 500 mg tablet 500 mg PO BID 3 Days #6 tab 11/18/17 [Rx Confirmed 11/18/17] Is last menstrual period known: No Post menopausal: Yes Patient : No : No PFSH Medical History GERD (gastroesophageal reflux disease) (Chronic) High blood pressure (Chronic) Back problem (Chronic) Surgical History History of lumpectomy of left breast (Acute) S/P dilation and curettage (Resolved) Family History Mother Anemia Heart disease Hypertension Father Heart disease Grandmother Hypertension Brother Hypertension Social History Smoking Status: Never smoker alcohol intake: current details: occasionally substance use type: does not use caffeine: Yes what type of physical activity do you participate in: none seatbelt use: always do you feel safe at home: Yes additional social history: - Kendrick Both patient and retired HPI 2 WEEK FOLLOW UP: Details: CLAIRE HEADLEY is a 77 year old who presents for follow up start of clobetesol and also increased use of estrace creams. States having persistent dysuria and also external burning. States took all of macrobid and using creams as directed. States she is also having urinary frequency Pregancy History 2 Elective abortions Hx Para 2 Spontaneous abortions Past Pregnancies Del. DatName GA[facility]eksOutcome [facility] LocaProviderFOB e ht en ia tn Unknown Chucky- 1963 Unknown [id number] 4 Exam External Female Exam: erythema (bilateral outer vulva down to buttocks) Speculum Exam - Vagina: normal vaginal discharge, other (pessary removed, cleaned and replaced. No excoriations) Assessment AND Plan Problems 1. Recurrent UTI N39.0 2. Vaginal pessary in situ Z92.89 3. Atrophic vaginitis N95.2 4. Lichen sclerosus L90.0 5. 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 Use vaseline thin layer prn as moisture barrier Continue estrace cream 3 times a week as directed Cipro bid X 3 days. She is unable to void enough for UA or culture. 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 coli Broxton Count 80,000-100,000 Presumptive E. coli: REACTION Amoxacillin/Clavulanic Acid $ <=2 S Ampicillin $ <=2 S Ampicillin/Sulbactam $ <=2 S Cefazolin $ <=4 S Cefepime $ <=1 S Ceftriaxone $ <=1 S Ciprofloxacin $ <=0.25 S ESBL - Ertapenim $$$ <=0.5 S Gentamicin $ <=1 S Imipenem *NF <=0.25 S Levofloxacin $ <=0.12 S Nitrofurantoin $ <=16 S Piperacillin/Tazobactam $$ <=4 S Tobramycin $ <=1 S Trimethoprim/Sulfametho $ <=20 S (NF) indicates non-formulary drug at [facility]. Approval by Infectious Disease Specialist required before non-formulary drugs may be ordered and/or dispensed. Performed By: #### M100.0650 #### [facility] [address] [place], [address] PRE K LEAD TEACHER OFFICE VISIT Observed: 11/04/2017 Status: F Source: [place] REPORT 12:11 PM [facility] REPOSITORY [facility] [place] [address] [place] [address] OFFICE VISIT Date of Service: 11/04/17 MR#: [id number] Acct: [id number] Name: CLAIRE HEADLEY Rep #: [id number] : 1940 Provider: MIKEY Calderon Age/Sex: 77/F Location: [facility] [place] [facility] Status: Signed Intake Vital Signs11/04/17 Height 5 ft 4 in 11/04/17 Weight: 169 lb 4 oz 11/04/17 Body Mass Index (BMI) 29.0 11/04/17 Blood Pressure 149/91 Intake Visit Reasons: 1 WEEK FOLLOW UP Chief Complaint: Pessary Check Tap Puller Required: No Is patient in pain?: No Allergies No Known Allergies Allergy (Verified 11/04/17 10:31) Medications amlodipine 5 mg tablet 5 mg PO QDAY 10/14/17 [History Confirmed 11/04/17] cholecalciferol (vitamin D3) 1,000 unit capsule 1,000 unit PO QDAY 10/14/17 [History Confirmed 11/04/17] meclizine 25 mg tablet 25 mg PO ONCE 10/14/17 [History Confirmed 11/04/17] omeprazole 20 mg capsule,delayed release 20 mg PO QDAY 10/14/17 [History Confirmed 11/04/17] valsartan 320 mg tablet 320 mg PO QDAY 10/14/17 [History Confirmed 11/04/17] estradiol 0.01% (0.1 mg/gram) vaginal cream See Label Instructions VAGINAL .COMPLEX #42.5 g 10/28/17 [Rx Confirmed 11/04/17] clobetasol 0.05 % topical cream 1 applic TOPICAL .COMPLEX #15 g 11/04/17 [Rx Confirmed 11/04/17] nitrofurantoin macrocrystal 100 mg capsule 100 mg PO BID 7 Days #14 cap 11/04/17 [Rx Confirmed 11/04/17] Is last menstrual period known: No Post menopausal: Yes Patient : No : No PFSH Medical History GERD (gastroesophageal reflux disease) (Chronic) High blood pressure (Chronic) Back problem (Chronic) Surgical History History of lumpectomy of left breast (Acute) S/P dilation and curettage (Resolved) Family History Mother Anemia Heart disease Hypertension Father Heart disease Grandmother Hypertension Brother Hypertension Social History Smoking Status: Never smoker alcohol intake: current details: occasionally substance use type: does not use caffeine: Yes what type of physical activity do you participate in: none seatbelt use: always do you feel safe at home: Yes additional social history: - Kendrick Both patient and retired HPI 1 WEEK FOLLOW UP: Details: CLAIRE HEADLEY is a 77 year old who presents for pessary check-#2 donut placed one week ago. States is working well but now having burning with urination. Also triamcinolone not helping with external itching. Pregancy History 2 Elective abortions Hx Para 2 Spontaneous abortions Past Pregnancies Del. DatName GA/WeeksOutcome Route Bth WeigInfant GLabor LgAnesthesDel LocaProviderFOB e ht en ia tn Unknown Chucky- 1962 Unknown [id number] 4 Exam Other: Persistant erythema of vulva down to buttocks. Some areas of silver whitening noted Donut pessary removed. Small tear at posterior introitus with removal. No vaginal excoriations or bleeding noted. Normal discharge. Pessary cleaned and replaced with trimosan gel. Patient tolerated well. Results BMSUA Office Urine Color STRAW Last Edit by Gill Amador on 11/04/17 11:49 Office Urine Clarity Cloudy Last Edit by Gill Amador on 11/04/17 11:49 Assessment AND Plan Problems 1. 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 Lichen sclerosus L90.0 3. Atrophic vaginitis N95.2 4. Encounter for pessary maintenance Z46.89 Plan Stop triamcinolone and start clobetesol plus small amount of estrace cream at opening 3 nights per week Positive UA and culture sent Rx macrobid. 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 Lichen sclerosus L90.0 Atrophic vaginitis N95.2 Encounter for pessary maintenance Z46.89 11/04/17 1211 <Electronically signed by Angie STEPHENSON> Date Angie STEPHENSON Cosigner Signature: Date (if applicable) CC: PRE K LEAD TEACHER OFFICE VISIT Observed: 10/28/2017 Status: F Source: [place] REPORT 10:26 AM [facility] [address] [place] [address] OFFICE VISIT Date of Service: 10/28/17 MR#: [id number] Acct: [id number] Name: CLAIRE HEADLEY Rep #: [id number] : 1940 Provider: MIKEY Calderon Age/Sex: 77/F Location: [facility] [place] [facility] Status: Signed Intake Vital Signs10/28/17 Height 5 ft 4 in 10/28/17 Weight: 166 lb 6 oz 10/28/17 Body Mass Index (BMI) 28.5 10/28/17 Blood Pressure 149/101 Intake Visit Reasons: REFERRAL FROM [facility] Tap Puller Required: No Is patient in pain?: Yes Pain scale (1-10): 5 Allergies No Known Allergies Allergy (Verified 10/28/17 09:41) Medications amlodipine 5 mg tablet 5 mg PO QDAY 10/14/17 [History Confirmed 10/28/17] cholecalciferol (vitamin D3) 1,000 unit capsule 1,000 unit PO QDAY 10/14/17 [History Confirmed 10/28/17] meclizine 25 mg tablet 25 mg PO ONCE 10/14/17 [History Confirmed 10/28/17] omeprazole 20 mg capsule,delayed release 20 mg PO QDAY 10/14/17 [History Confirmed 10/28/17] valsartan 320 mg tablet 320 mg PO QDAY 10/14/17 [History Confirmed 10/28/17] estradiol 0.01% (0.1 mg/gram) vaginal cream See Label Instructions VAGINAL .COMPLEX #42.5 g 10/28/17 [Rx Confirmed 10/28/17] triamcinolone acetonide 0.5 % topical cream 1 applic TOPICAL BID #15 g 10/28/17 [Rx Confirmed 10/28/17] Is last menstrual period known: No Post menopausal: Yes Patient : No : No PFSH Medical History GERD (gastroesophageal reflux disease) (Chronic) High blood pressure (Chronic) Back problem (Chronic) Surgical History History of lumpectomy of left breast (Acute) S/P dilation and curettage (Resolved) Family History Mother Anemia Heart disease Hypertension Father Heart disease Grandmother Hypertension Brother Hypertension Social History Smoking Status: Never smoker alcohol intake: current details: occasionally substance use type: does not use caffeine: Yes what type of physical activity do you participate in: none seatbelt use: always do you feel safe at home: Yes additional social history: - Kendrick Both patient and retired HPI REFERRAL FROM [facility]: Details: CLAIRE HEADLEY is a 77 year old who presents for vaginal prolapse and external burning X 5 months. Saw PCP and tried estrace cream and osphena without improvement. No longer sexually active. Pregancy History 2 Elective abortions Hx Para 2 Spontaneous abortions Past Pregnancies Del. DatName GA/WeeksOutcome Route Bt WeigInfant GLabor LgAnesthesDel LocaProviderFOB e ht en tn Unknown Chucky- 1963 Unknown [id number] 4 Exam External Female Exam: erythema (external bilat buttocks vagina to rectum, some excoriation;) Urethra: other (silver whitening around urethra and clitoral hansen) Speculum Exam - Vagina: atrophic vaginal mucosa Bimanual Exam- Vagina AND Uterus: uterine size normal, uterine shape normal, uterus non-tender Bimanual Exam- Adnexa, other: normal adnexae, no adnexal masses, adnexae non-tender, cystocele (cervix prolapse to 2 cm above introitus) Pelvic Support: cystocele (cervix prolapse to 2 cm above introitus) mild Office Procedures Pessary Insert Pessary Insertion Indication for Pessary: Yes cystocele, Yes uterine prolapse Style: Yes doughnut Size:: 2 triamcinolone used:: No vaginal estrogen prescribed: Yes Assessment AND Plan Problems 1. 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 Lichen sclerosus L90.0 3. Atrophic vaginitis N95.2 Plan Start triamcinolone cream bid external areas and also continue small amount estrace cream every other day at vaginal opening. 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 Lichen sclerosus L90.0 Atrophic vaginitis N95.2 Additional Codes Pessary Insertion ([id number]) 10/28/17 1026 <Electronically signed by Angie [place] PHOTO EQUIPMENT TECHNICIAN-C> Date Angie Calderon PHOTO EQUIPMENT TECHNICIAN-C Cosigner Signature: Date (if applicable) CC: INTERNAL MEDICINE Observed: 10/14/2017 Status: F Source: ERYN OFFICE VISIT 3:18 PM [facility] [address] [place] [address] [place] [address] OFFICE VISIT Date of Service: 10/14/17 MR#: [id number] Acct: [id number] Name: CLAIRE HEADLEY Rep #: [id number] : 1940 Provider: Kadi Rodarte DO Age/Sex: 77/F Location: [facility] Status: Signed Intake Vital Signs10/14/17 Height 5 ft 3.5 in 10/14/17 Weight: 170 lb 10/14/17 Body Mass Index (BMI) 29.6 10/14/17 Blood Pressure 134/86 Intake Visit Reasons: check up Chief Complaint: Check up - vaginal prolapse Is patient in pain?: Yes (abdominal pain) Pain scale (1-10): 10 Allergies No Known Allergies Allergy (Unverified 10/14/17 13:53) Medications amlodipine 5 mg tablet 5 mg PO QDAY 10/14/17 [History Confirmed 10/14/17] cholecalciferol (vitamin D3) 1,000 unit capsule 1,000 unit PO QDAY 10/14/17 [History Confirmed 10/14/17] meclizine 25 mg tablet 25 mg PO ONCE 10/14/17 [History Confirmed 10/14/17] omeprazole 20 mg capsule,delayed release 20 mg PO QDAY 10/14/17 [History Confirmed 10/14/17] valsartan 320 mg tablet 320 mg PO QDAY 10/14/17 [History Confirmed 10/14/17] PFSH Medical History GERD (gastroesophageal reflux disease) (Chronic) High blood pressure (Chronic) Back problem (Chronic) Surgical History History of lumpectomy of left breast (Acute) Family History Mother Anemia Heart disease Hypertension Father Heart disease Grandmother Hypertension Brother Hypertension Social History Smoking Status: Never smoker alcohol intake: never substance use type: does not use what type of physical activity do you participate in: none HPI HPI Chief Complaint: Check up - vaginal prolapse Details: CLAIRE HEADLEY, is a 77 F who presents to the office today for possible prolapse, lifting makes things worse, no loss of urinary control, no bowel problems ROS Const Constitutional: Positive for fatigue and weakness; no chills, fever(s), frequent falls, malaise, sleep problems or change in appetite Eyes Eyes: No blurry vision, change in vision, double vision, discharge or visual disturbances ENT ENT: Positive for tinnitus; no abnormal hearing, ear pain, ear pressure or dizziness/vertigo Resp Respiratory: No cough, shortness of breath or wheezing Cardio Cardiology: Positive for palpitations; no chest pain at rest, chest pain with exertion, shortness of breath, dyspnea on exertion, generalized swelling, irregular heart rhythm, lightheadedness, orthopnea or fast heart rate Gastro GI: Positive for abdominal pain and heartburn; no change in bowel habits, constipation, diarrhea, nausea/dyspepsia or vomiting Genitourinary-Female: Positive for urinary frequency and pelvic pain; no difficulty urinating, burning urination, painful urination, urinary incontinence, urinary urgency, urinary hesitancy, urinary retention, Frequent nighttime urination/ nocturia, sexual problems, genital lesions, abnormal vaginal bleeding, vaginal dryness, vaginal odor or Vaginal Itching Musc Musculoskeletal: Positive for back pain; no joint pain, joint swelling, limited range of motion, muscle weakness, numbness or tingling Skin Skin: No change in skin color, itching, rash or wounds Breast Breast: No breast lump or breast pain Neuro Neurology: Positive for weakness and dizziness; no frequent falls, abnormal hearing, numbness, tingling, unsteady gait/balance, loss of vision, memory loss or visual disturbances Psych Psychiatric: No memory loss, No anxiety, No change in appetite, No depression, No Thoughts of harming yourself/Others Endo Endocrine: Positive for fatigue, increased urination and cold intolerance; no heat intolerance, increased thirst/drinking or increased hunger Aller/Imm Allergy/Immunologic: No wheezing, itchy eyes or seasonal allergy symptoms Jeremi/Lymp Hematologic/Lymphatic: No easy bleeding, easy bruising or enlarged lymph nodes Exam Const General: cooperative, healthy appearing Nutritional Appearance: average body habitus Resp Effort AND Inspection: normal respiratory effort Auscultation: Bilateral: Clear to Auscultation Cardio Rate: regular rate Rhythm: regular rhythm External Female Exam: normal external appearance Speculum Exam - Cervix: normal appearance of the cervix Bimanual Exam- Vagina AND Uterus: uterine size normal Bimanual Exam- Adnexa, other: cystocele, normal adnexae Pelvic Support: cystocele moderate Musc Musculoskeletal: No muscle weakness Assessment AND Plan Problems 1. Cystocele 2. Hypertension I10 3. GERD (gastroesophageal reflux disease) K21.9 4. Back problem M53.9 Plan This patient was seen because she felt like her insides were falling out that is quotation from her. On examination she has a moderate size cystocele cervix is in good position I do not see any evidence of an enterocele or rectocele it seems simply like a grade 2 cystocele perhaps worse when her bladder is full. She had seen another physician who treated with estrogen cream release some of the itching but obviously did not resolve the problem I told her that she needs consult with your home health cna and these appointments were set up. Orders Referrals: Coding Level of Care Code Off vis,est,level 3 Diagnoses Cystocele Hypertension I10 GERD (gastroesophageal reflux disease) K21.9 Back problem M53.9 10/14/17 1518 <Electronically signed by Kadi Rodarte DO> Date Kadi Rodarte DO Cosigner Signature: Date (if applicable) CC: XR CHEST 2 VIEWS Observed: 09/18/2017 Status: F Source: [employer] 4:23 PM FOUNDATION REPOSITORY ORIGINAL XR CHEST 2 VIEWS, Clinical Statement: pneumonia, follow-up from previous pneumonia diagnosed elsewhere, patient has no chest complaints at this time Comparison: None Findings: No consolidation, pneumothorax, pleural fluid, or vascular congestion is seen. Heart size and mediastinal contours are within normal limits for age and projection. No acute skeletal abnormality. Lungs a ppear hyperexpanded with flattening of the diaphragm on the lateral view. Tortuous elongated aorta with minimal calcification. IMPRESSION: No acute cardiopulmonary process. COPD. Suggest comparison to earlier radiographs that may have shown pneumonia. Interpreted By: Ruperto Montilla MD Preliminary Report By: Ruperto Montilla MD Electronically Signed By: Ruperto Montilla MD Dictated Date: 09/18/2017 6:07:08 PM Prelim Date: 09/18/2017 6:07:08 PM Sign Date: 09/18/2017 6:08:38 PM ALLERGIES ALLERGIES DATE TYPE / CODE NAME / CODE REACTION SEVERITY SOURCE 06/23/2018 Drug cephaeline/F0 DID NOT WORK Unknown [facility] Allergy/4160 [id number]([place] [address](SNOMED RM) Repository CT) 06/23/2018 Drug cephalexin/F0 Swelling Unknown [facility] Allergy/4160 [id number]([place] [address](SNOMED RM) Repository CT) 12/02/2017 Drug No Known Unknown [facility] Allergy/4160 Allergies/F00 [facility](SNOMED [id number](RXNOR Repository CT) M) ENCOUNTERS ENCOUNTERS ADMIT/DISCHARGE ACCOUNT NUMBER ADMITTING ENCOUNTER LOCATION SOURCE CLASS 06/28/2018 [id number] Ambulatory [facility] ding:ONC Repository 06/23/2018 [id number] Ambulatory BMSBuilding: Eryn BMS.[facility] Repository 06/09/2018 [id number] Alise Ambulatory BMSBuilding: [place] Elis BMS..[facility] Repository 06/09/2018/06/10/20 [id number] Alise Inpatient Eryn [place] 18 [facility] ding:[id number] Repository : LQ514Dbk: 1 06/08/2018 [id number] Ambulatory BMSBuilding: Eryn BMS.[facility] Repository 06/03/2018/06/03/20 [id number] Ambulatory BMSBuilding: O'Brien 18 BMS.[facility] Repository 06/02/2018 [id number] Ambulatory BMSBuilding: O[facility]Brien [facility] Repository 05/10/2018/05/10/20 [id number] Ambulatory BMSBuilding: Eryn 18 BMS.[facility] Repository 03/03/2018/03/03/20 [id number] Ambulatory BMSBuilding: Eryn 18 BMS.[facility] Repository 01/29/2018 [id number] Ambulatory [facility] ding:OPUS Repository 01/12/2018 [id number] Ambulatory [facility] ding:LABSPEC Repository 01/12/2018/01/13/20 [id number] Ambulatory BMSBuilding: Eryn 18 BMS.[facility] Repository 12/30/2017/12/31/19 [id number] Ambulatory BMSBuilding: O'Brien 18 BMS.[facility] Repository 12/07/2017 [id number] Ambulatory [facility] ding:US Repository 12/02/2017 [id number] Ambulatory [facility] ding:LABSPEC Repository 12/02/2017/12/03/19 [id number] Ambulatory BMSBuilding: O[place]Brien 18 BMS.[facility] Repository 11/26/2017 [id number] Ambulatory [facility] ding:LAB Repository 11/18/2017/11/19/19 [id number] Ambulatory BMSBuilding: Eryn 18 BMS.[facility] Repository 11/04/2017 [id number] Ambulatory [facility] ding:LABSPEC Repository 11/04/2017/11/05/19 [id number] Ambulatory BMSBuilding: [place]Brien 18 BMS.[facility] Repository 10/28/2017/10/29/19 [id number] Ambulatory BMSBuilding: Eryn 18 BMS.[facility] Repository 10/14/2017/10/15/19 [id number] Ambulatory BMSBuilding: [place]Brien 18 BMS.[facility] Repository 09/18/2017/09/19/19 [id number] Ambulatory [address] ding:[facility] Repository PAYERS PAYERS ENCOUNTER GUARANTOR PAYER SUBSCRIBER SOURCE 06/28/2018 CHUCKY HEADLEYDOB: [place] [id number] Insurance:MEDICARE [id number] [place] [facility] [place] [address]Wrb: Number: Repository [id number] (HP) Date:2018-06-14 06/28/2018 Secondary CLAIRE E YODERDOB: Eryn Insurance:[facility] [id number] Clinic Number: Repository [id number] Date:2018-06-14[address] [place] [address]BY: 06/28/2018 Tertiary NOT GIVENUNK O'Brien Insurance:SELF PAY [facility] Number: Effective Repository Date:2018-06-14 06/23/2018 CHUCKY J Primary CLAIRE E YODERDOB: [place] [id number] Insurance:MEDICARE [id number] Hospital of [facility] [place] A [facility] [address]Tmc: Number: Repository [id number] (HP) Date:2018-06-14 06/23/2018 Secondary CLAIRE E YODERDOB: Eryn Insurance:[facility] [id number] Clinic Number: Repository [id number] Date:2018-06-14[address] [place] [address]JX: 06/23/2018 Tertiary NOT GIVENUNK Eryn Insurance:SELF PAY [facility] Number: Effective Repository Date:2018-06-23 06/09/2018 CHUCKY J Primary CLAIRE E YODERDOB: [place] [id number] Insurance:MEDICARE [id number] Hospital of [facility] [place] A [facility] [place] [address]Eag: Number: Repository [id number] (HP) Date:2018-03-16 06/09/2018 Secondary CLAIRE E YODERDOB: [place] Insurance:[facility] [id number] Clinic Number: Repository [id number] Date:2018-03-16[address], [place] [address]KV: 06/09/2018 Tertiary NOT GIVENUNK Eryn Insurance:SELF PAY [facility] Number: Effective Repository Date:2018-06-09 06/09/2018 CHUCKY Ramana Primary CLAIRE E YODERDOB: Eryn [id number] Insurance:MEDICARE [id number][facility] [place] [address]Xrb: Number: Repository [id number] (HP) Date:2018-03-16 06/09/2018 Secondary CLAIRE E YODERDOB: Eryn Insurance:[facility] [id number] Clinic Number: Repository [id number] Date:2018-03-16[address] [place] [address]HB: 06/09/2018 Tertiary NOT GIVENUNK Eryn Insurance:SELF PAY [facility] Number: Effective Repository Date:2018-03-16 06/08/2018 CHUCKY Boles Primary CLAIRE E YODERDOB: [place] [id number] Insurance:MEDICARE [id number]'s [facility] [place] [address]Cqu: Number: Repository [id number] (HP) Date:2018-03-16 06/08/2018 Secondary CLAIRE E YODERDOB: [place] Insurance:[facility] [id number] Clinic Number: Repository [id number] Date:2018-03-16[address] [place] [address]EA: 06/08/2018 Tertiary NOT GIVENUNK Eryn Insurance:SELF PAY [facility] Number: Effective Repository Date:2018-06-08 06/03/2018 CLAIRE E Primary CLAIRE E YODERDOB: [place] [id number] Insurance:MEDICARE [id number]'s Hospital [place] [address]Uaa: Number: Repository [id number] (HP) Date:2018-05-26 06/03/2018 Secondary CLAIRE E YODERDOB: Eryn Insurance:[facility] [id number] Clinic Number: Repository [id number] Date:2018-05-26[address] [place] [address]JT: 06/03/2018 Tertiary NOT GIVENUNK O[place]Brien Insurance:SELF PAY [facility] Number: Effective Repository Date:2018-06-03 06/02/2018 CHUCKY J Primary CLAIRE E YODERDOB: Eryn [id number] Insurance:MEDICARE [id number], [facility] [address]Gkb: Number: Repository [id number] (HP) Date:2018-03-16 06/02/2018 Secondary CLAIRE E YODERDOB: O[place] Insurance:[facility] [id number] Clinic Number: Repository [id number] Date:2018-03-16[address] [place] [address]ZQ: 06/02/2018 Tertiary NOT GIVENUNK O[place]Brien Insurance:SELF PAY [facility] Number: Effective Repository Date:2018-06-02 05/10/2018 CHUCKY Boles Primary CLAIRE HARRISON [place] [id number] Insurance:MEDICARE YODERDOB: [facility], PART A [facility] [id number] Hospital [place] [address]Mmn: Number: Repository [id number] (HP) Date:2018-03-23 05/10/2018 Secondary CLAIRE HARRISON [place] [facility] YODERD[facility]: [facility] [id number] Hospital Number: Repository [id number] Date:2018-03-23[address] [place] [address]ZQ: 05/10/2018 Tertiary NOT GIVENUNK Eryn Insurance:SELF PAY [facility] Number: Effective Repository Date:2018-05-10 03/03/2018 CHUCKY Boles Primary CLAIRE TERRY [place] [id number] Insurance:MEDICARE YODERDOB: [facility] JAMI [place], PART A [facility] [id number] Comprehensive [facility] [address]Nbr: Number: Repository [id number] (HP) Date:2018-01-12 03/03/2018 Secondary CLAIRE HARRISON [place] Insurance[place] YODERDOB: [facility] A [facility] [id number] Hospital Number: Repository [id number] Date:2018-01-12[address] [place] [address]YT: 03/03/2018 Tertiary NOT GIVENUNK Eryn Insurance:SELF PAY [facility] Number: Effective Repository Date:2018-01-12 01/29/2018 CHUCKY Boles Primary CLAIRE TERRY [place] [id number] Insurance:MEDICARE [facility]ODERDOB: [facility] [id number] Comprehensive Health Center [address]Drq: Number: Repository [id number] (HP) Date:2018-01-14 01/29/2018 Secondary CLAIRE HARRISON [place] Insurance:[place] YODERDOB: [facility] A [facility] [id number] Hospital Number: Repository [id number] Date:2018-01-14[address] [place] [phone]: 01/29/2018 Tertiary NOT GIVENUNK Eryn Insurance:SELF PAY [facility] Number: Effective Repository Date:2018-01-14 01/12/2018 CHUCKY Boles Primary CLAIRE TERRY O[place] [id number] Insurance:MEDICARE [facility]ODERDOB[facility] [id number] Comprehensive Health Center [address]Jnx: Number: Repository [id number] (HP) Date:2018-01-12 01/12/2018 Secondary CLAIRE HARRISON O'[place] Insurance:[place] YODERDOB: [facility] A [facility] [id number] Hospital Number: Repository [id number] Date:2018-01-12[address] [place] [address]WA: 01/12/2018 Tertiary NOT GIVENUNK Eryn Insurance:SELF PAY [facility] Number: Effective Repository Date:2018-01-12 01/12/2018 CHUCKY Boles Primary CLAIRE HARRISON Eryn [id number] Insurance:MEDICARE YODERDOB: [facility] [place], PART A [facility] [id number] Comprehensive Health Center [address]Ljb: Number: Repository [id number] (HP) Date:2017-12-30 01/12/2018 Secondary CLAIRE HARRISON Eryn Insurance:[place] YODERDOB: [facility] A [facility] [id number] Hospital Number: Repository [id number] Date:2017-12-30[address] [place] [address]EC: 01/12/2018 Tertiary NOT GIVENUNK Eryn Insurance:SELF PAY [facility] Number: Effective Repository Date:2018-01-12 12/30/2017 CHUCKY Boles Primary CLAIRE TERRY O'[place] [id number] Insurance:MEDICARE YODERDOB: [facility] [id number] Comprehensive Health Center [address]Rvp: Number: Repository [id number] (HP) Date:2017-12-02 12/30/2017 Secondary CLAIRE HARRISON Eryn Insurance:[place] YODERDOB: [facility] A [facility] [id number] Hospital Number: Repository [id number] Date:2017-12-02[address] [place] [phone]: 12/30/2017 Tertiary NOT GIVENUNK Eryn Insurance:SELF PAY [facility] Number: Effective Repository Date:2017-12-30 12/07/2017 CHUCKY Boles Primary CLAIRE Cerna [id number] Insurance:MEDICARE YODERDOB: [facility] [place], PART A [facility] [id number] [address]Baa: Number: Repository [phone] [id number] (HP) Date:2017-12-03 12/07/2017 Secondary CLAIRESumit TERRY O'[place] Insurance:[place] YODERDOB: [facility] A [facility] [id number] Hospital Number: Repository [id number] Date:2017-12-03[address] [place] [address]TY: 12/07/2017 Tertiary NOT GIVENUNK Eryn Insurance:SELF PAY [facility] Number: Effective Repository Date:2017-12-03 12/02/2017 CHUCKY Boles Primary CLAIRE Cerna [id number] Insurance:MEDICARE YODERDOB: [facility] [id number] Comprehensive Health Center [address]Ofd: Number: Repository [phone] [id number] (HP) Date:2017-12-02 12/02/2017 Secondary CLAIRE TERRY E[place] Insurance[place] YODERDOB: [facility] A [facility] [id number] Hospital Number: Repository [id number] Date:2017-12-02[address] [place] [phone]: 12/02/2017 Tertiary NOT GIVENUNK O'[place] Insurance:SELF PAY [facility] Number: Effective Repository Date:2017-12-02 12/02/2017 CHUCKY Boles Primary CLAIRE Cerna [id number] Insurance:MEDICARE YODERDOB: [facility] [place], PART A [facility] [id number] Comprehensive Health Center [address]Oiu: Number: Repository [phone] [id number] (HP) Date:2017-11-18 12/02/2017 Secondary CLAIRE HARRISON E[place] Insurance:[place] YODERDOB: [facility] A [facility] [id number] Hospital Number: Repository [id number] Date:2017-11-18[address] [place] [address]SA: 12/02/2017 Tertiary NOT GIVENUNK O'Brien Insurance:SELF PAY [facility] Number: Effective Repository Date:2017-12-02 11/26/2017 CHUCKY Boles Primary CLAIRE TERRY O'Brien [id number] Insurance:MEDICARE YODERDOB: [facility] [place], PART A [facility] [id number] Comprehensive Health Center [address]Jlm: Number: Repository [id number] (HP) Date:2017-11-26 11/26/2017 Secondary CLAIRE HARRISON Eryn Insurance:[place] YODERDOB: [facility] A [facility] [id number] Hospital Number: Repository [id number] Date:2017-11-26[address] [place] [address]DZ: 11/26/2017 Tertiary NOT GIVENUNK O'Brien Insurance:SELF PAY [facility] Number: Effective Repository Date:2017-11-26 11/18/2017 CHUCKY Boles Primary CLAIRE TERRY O'[place] [id number] Insurance:MEDICARE YODERDOB: [facility] [place], PART A [facility] [id number] Comprehensive Health Center [address]Opj: Number: Repository [phone] [id number] (HP) Date:2017-11-04 11/18/2017 Secondary CLAIRE HARRISON Eryn Insurance:[place] YODERDOB: [facility] A [facility] [id number] Hospital Number: Repository [id number] Date:2017-11-04[address] [place] [address]LK: 11/18/2017 Tertiary NOT GIVENUNK Eryn Insurance:SELF PAY [facility] Number: Effective Repository Date:2017-11-18 11/04/2017 CHUCKY Boles Primary CLAIRE Cerna [id number] Insurance:MEDICARE YODERDOB: [facility] [place], PART A [facility] [id number] Comprehensive Health Center [address]Fyn: Number: Repository [phone] [id number] (HP) Date:2017-11-04 11/04/2017 Secondary CLAIRE HARRISON Eryn Insurance:[place] YODERDOB: [facility] [id number] Hospital Number: Repository [id number] Date:2017-11-04[address] [place] [phone]: 11/04/2017 Tertiary NOT GIVENUNK Eryn Insurance:SELF PAY [facility] Number: Effective Repository Date:2017-11-04 11/04/2017 CHUCKY Boles Primary CLAIRE Avalososter [id number] Insurance:MEDICARE YODERDOB: [facility] [place], PART A [facility] [id number] [address]Tel: Number: Repository [phone] [id number] (HP) Date:2017-10-28 11/04/2017 Secondary CLAIRESumit TERRY E[place] Insurance:[place] YODERDOB: [facility] [id number] Hospital Number: Repository [id number] Date:2017-10-[address] [place] [address]TQ: 11/04/2017 Tertiary NOT GIVENUNK Eryn Insurance:SELF PAY [facility] Number: Effective Repository Date:2017-11-04 10/28/2017 CHUCKY Boles Primary CLAIRE Avalososter [id number] Insurance:MEDICARE YODERDOB: [facility] [place], PART A [facility] [id number] Comprehensive Health Center [address]Scl: Number: Repository [phone] [id number] (HP) Date:2017-10-14 10/28/2017 Secondary CLAIRE HARRISON O'[place] Insurance:[place] YODERDOB: [facility] [id number] Hospital Number: Repository [id number] Date:2017-10-14[address] [place] [address]DO: 10/28/2017 Tertiary NOT GIVENUNK Eryn Insurance:SELF PAY [facility] Number: Effective Repository Date:2017-10-28 10/14/2017 CHUCKY J Primary CLAIRE HARRISON O'[place] [id number] Insurance:MEDICARE YODERDOB: [facility] [place], PART A [facility] [id number] Comprehensive Health Center [address]Zqx: Number: Repository [phone] [id number] () Date:2017-09-16 10/14/2017 Secondary CLAIRE HARRISON O'Brien Insurance[place] YODERDOB: [facility] [id number] Hospital Number: Repository [id number] Date:2017-09-16[address] [place] [address]NC: 10/14/2017 Tertiary NOT GIVENUNK O'Brien Insurance:SELF PAY [facility] Number: Effective Repository Date:2017-10-14 09/18/2017 CLAIRE E YODERDOB: Primary CLAIRE E YODERDOB: [employer] [id number] Insurance:MEDICARE [id number] Foundation JAMI [place], PART [facility] Number: [address] Repository [place] [address]Tnv: [id number] [facility] [place] Date:2017-09-18 [address]Jbo: (330) (HP)Tel: [phone] (WP) Name:GABY (HP)Tel: (000) Administrators LLCPO 000-0000 (WP) [address] [address], [place] [address]CK: 09/18/2017 Secondary CLAIRE E YODERDOB: [facility] Insurance:[facility] [id number] Repository Number: RDZEINA SUNSHINE [id number] [address]Fue: 330 Date:2017-09-18 [phone] ()Tel: ([phone]) Name:CPO Galan 000-0000 (WP) [address], [place] [address]PW:
== END 2018-06-10 14:49 | disposition home or self-care (01) | DRG 743 ==
LOC: MS2 14:51 → SDC 06-10 07:13
PROVIDERS: Obstetrics & Gynecology; Admitting Provider Urology; Family Provider Family Medicine; PCP Family Medicine; Referring Provider Urology; Visit Provider Urology
PROC: (CPT 58260; principal; 2018-06-08 07:10)
PROC: (CPT 57260; 2018-06-08 07:10)
DX: N81.2 Incomplete uterovaginal prolapse (principal); N95.2 Postmenopausal atrophic vaginitis; N36.41 Hypermobility of urethra; N83.201 Unspecified ovarian cyst, right side; Z23 Encounter for immunization
CPT/HCPCS: 36415; 71046; 80048; 81002; 85027; 86850; 86900; 87077; 87086; 87088; 87186; 88307; 93005; 94762; J7120; 90686; A4216; C1758; C1769; J0744; J2405

== ENCOUNTER → 2019-02-11 | Outpatient (CLI) | payer MEDICARE, OTHER, SELFPAY ==
[2019-02-11 11:25] VITALS: BMI 28.3
[2019-02-11 14:46] LABS: White Blood Cells 0 SEEN /hpf (0-5)
[2019-02-11 14:47] LABS: Bacteria 0 SEEN /hpf (None Seen); Mucous, Urine 0 SEEN /hpf (<or=2+)
[2019-02-11 14:52] LABS: Color, Urine Yellow (Yellow); Glucose, Dipstick Normal (Normal); Ketone-Dipstick Negative (Negative); Leukocyte Esterase-Dipstick Negative /ul (Negative); Nitrite-Dipstick Negative (Negative); Occult Blood-Urine Negative /ul (Negative); Protein-Dipstick Negative (Negative); Urine Bilirubin Dipstick Negative (Negative); Urine Clarity Clear (Clear); Urine Urobilinogen Normal (Normal); Urine pH 6.5 (5.0 - 8.0)
[2019-02-11 15:24] LABS: Red Blood Cells-Urine 0 SEEN /hpf (0-5)
[2019-02-11 15:25] LABS: Squamous Epithelial Cells - UA 0-5 SEEN /hpf (5-10)
== END | disposition home or self-care (01) ==
LOC: LABSPEC 14:16
PROVIDERS: Family Provider Family Medicine; PCP Family Medicine; Referring Provider Physician Assistant Surgical; Visit Provider Physician Assistant Surgical
DX: R30.0 Dysuria (principal)
CPT/HCPCS: 81001; 87086; 87088

== ENCOUNTER → 2019-07-14 10:34 | Outpatient (CLI) | payer MEDICARE, OTHER, SELFPAY ==
[2019-07-05 14:55] VITALS: BMI 26.8
[2019-07-14 13:13] LABS: ALB/GLOB Ratio 1.1 RATIO (0.9-2.4); AST(SGOT) 15 U/L (15-37); Alanine Aminotransfer ALT/SGPT 17 U/L (13-56); Albumin, Serum 3.6 g/dL (3.2-5.0); Alkaline Phosphatase 65 U/L (45-117); Anion Gap 3 (5-15); BUN 17 mg/dL (7-18); BUN/Creat Ratio 21.4 RATIO (10-20); Chloride 108 mmol/L (98-107); Cholesterol 159 mg/dL (200); Creatinine, Serum 0.79 mg/dL (0.55-1.02); EST Glomerular Filtration Rate 75 mL/min (>60); Est Glom Filt Rate - Afr Amer 90 mL/min (>60); Globulin 3.4 g/dL (2.2-4.2); Glucose 101 mg/dL (74-106); High Density Lipoprotein 52 mg/dL; Potassium 3.9 mmol/L (3.5-5.1); Sodium Level 140 mmol/L (136-145); Triglycerides 147 mg/dL; Very Low Density Lipoprotein 29 mg/dL (5-40)
== END ==
LOC: BIMLAB 10:37
PROVIDERS: PCP Family Medicine; Referring Provider Family Medicine; Visit Provider Family Medicine
DX: I10 Essential (primary) hypertension (principal)
CPT/HCPCS: 36415; 80053; 80061

== ENCOUNTER → 2020-07-17 15:20 | Outpatient (CLI) | payer MEDICARE, OTHER, SELFPAY ==
[2020-07-17 14:53] VITALS: BMI 26.4
[2020-07-17 15:31] LABS: Mucous, Urine 0 SEEN /hpf (<or=2+); Red Blood Cells-Urine 0 SEEN /hpf (0-5); White Blood Cells 0 SEEN /hpf (0-5)
[2020-07-17 16:52] LABS: Color, Urine Yellow (Yellow); Glucose, Dipstick Normal (Normal); Ketone-Dipstick Negative (Negative); Leukocyte Esterase-Dipstick 25 /ul (Negative); Nitrite-Dipstick Negative (Negative); Occult Blood-Urine Negative /ul (Negative); Protein-Dipstick Negative (Negative); Urine Bilirubin Dipstick Negative (Negative); Urine Clarity Clear (Clear); Urine Urobilinogen Normal (Normal)
[2020-07-17 17:01] LABS: AST(SGOT) 12 U/L (15-37); Alanine Aminotransfer ALT/SGPT 20 U/L (13-56); Albumin, Serum 3.8 g/dL (3.2-5.0); Alkaline Phosphatase 73 U/L (45-117); Anion Gap 5 (5-15); BUN 17 mg/dL (7-18); BUN/Creat Ratio 20.5 RATIO (10-20); Calcium,Total 9.2 mg/dL (8.5-10.1); Chloride 105 mmol/L (98-107); Creatinine, Serum 0.83 mg/dL (0.55-1.02); EST Glomerular Filtration Rate 71 mL/min (>60); Est Glom Filt Rate - Afr Amer 86 mL/min (>60); Globulin 3.7 g/dL (2.2-4.2); Glucose 155 mg/dL (74-106); Potassium 3.9 mmol/L (3.5-5.1); Protein, Total 7.5 g/dL (6.4-8.2); Sodium Level 141 mmol/L (136-145)
[2020-07-17 17:09] LABS: Bacteria 3+ /hpf (None Seen); Squamous Epithelial Cells - UA 0-5 SEEN /hpf (5-10)
== END ==
PROVIDERS: PCP Family Medicine; Referring Provider Family Medicine; Visit Provider Family Medicine
DX: I10 Essential (primary) hypertension (principal); R30.0 Dysuria
CPT/HCPCS: 36415; 80053; 81001

== ENCOUNTER → 2020-07-31 09:37 | Outpatient (CLI) | payer MEDICARE, OTHER, SELFPAY ==
[2020-07-17 14:53] VITALS: BMI 26.4
[2020-07-31 09:42] LABS: Mucous, Urine 0 SEEN /hpf (<or=2+); Red Blood Cells-Urine 0 SEEN /hpf (0-5); White Blood Cells 0 SEEN /hpf (0-5)
[2020-07-31 12:44] LABS: Color, Urine Yellow (Yellow); Glucose, Dipstick Normal (Normal); Ketone-Dipstick 5 mg/dl (Negative); Leukocyte Esterase-Dipstick 25 /ul (Negative); Nitrite-Dipstick Negative (Negative); Occult Blood-Urine Negative /ul (Negative); Protein-Dipstick Negative (Negative); Urine Bilirubin Dipstick Negative (Negative); Urine Clarity Sl. Cloudy (Clear); Urine Urobilinogen Normal (Normal)
[2020-07-31 12:50] LABS: Bacteria 2+ /hpf (None Seen); Squamous Epithelial Cells - UA 0-5 SEEN /hpf (5-10)
[2020-07-31 13:17] LABS: Hemoglobin A1c 5.5 % (3.8-5.6)
== END ==
PROVIDERS: PCP Family Medicine; Referring Provider Family Medicine; Visit Provider Family Medicine
DX: R30.0 Dysuria (principal); R73.09 Other abnormal glucose
CPT/HCPCS: 36415; 81001; 83036; 87086; 87088

== ENCOUNTER → 2020-09-25 16:37 | Outpatient (CLI) | payer MEDICARE, OTHER, SELFPAY ==
[2020-09-14 09:41] VITALS: BMI 26.4
[2020-09-20 10:57] VITALS: BMI 26.4
[2020-09-24 11:24] LABS: Absolute Lymphocyte Count 1.62 X10^3/uL (0.83-4.51); Absolute Neutrophil Count 3.1 X10^3/uL (2.0-7.7); Basophil# 0.05 X10^3/uL; Basophil% 0.9 % (0-1); Eosinophil# 0.23 X10^3/uL; Eosinophils% 4.2 % (0-5); Hematocrit 40.4 % (37-47); Hemoglobin 13.3 g/dL (12.0-15.0); Lymphocyte # 1.62 X10^3/ul (4.0); Lymphocyte % 29.3 % (19-41); Mean Corp Hgb Conc 32.9 g/dL (32-36); Mean Corpuscular Volume 94.2 fL (81-99); Mean Platelet Vol. 11.4 fl (6.2-12.0); Monocyte# 0.51 X10^3/uL; Monocyte% 9.2 % (0-10); NRBC Flagged by Analyzer 0 % (0-5); Neutrophil # 3.11 X10^3/uL (2.7-7.7); Neutrophil % 56.2 % (47-70); POSITIVE MORPHOLOGY YES; Platelet Count 252 K/mm3 (150-450); RBC Distribution Width CV 13.8 % (11.6-14.6); RBC Distribution Width SD 47.5 fl (35.1-43.9); Red Blood Count 4.29 M/mm3 (4.2-5.4); White Blood Count 5.5 K/mm3 (4.4-11.0)
[2020-09-24 11:30] LABS: Differential Indicated SCAN CRITERIA MET
[2020-09-24 11:54] LABS: Anion Gap 2 (5-15); BUN 27 mg/dL (7-18); BUN/Creat Ratio 32.8 RATIO (10-20); Calcium,Total 9.6 mg/dL (8.5-10.1); Chloride 106 mmol/L (98-107); Creatinine, Serum 0.82 mg/dL (0.55-1.02); EST Glomerular Filtration Rate 71 mL/min (>60); Est Glom Filt Rate - Afr Amer 86 mL/min (>60); Glucose 98 mg/dL (74-106); Potassium 3.5 mmol/L (3.5-5.1); Sodium Level 140 mmol/L (136-145)
--- NOTE | 2020-09-25 16:38 | CT_ITS ---
INDICATION: LOW ABD PAIN,NAUSEA EXAMINATION: CT Abdomen And Pelvis W/ Contrast Injection TECHNIQUE: Helically acquired images were obtained of the abdomen and pelvis after IV contrast. A radiation dose optimization technique was used for this scan. IV Contrast dosage and agent: 100 cc [id number] Oral contrast: Yes. COMPARISON: None. FINDINGS: Visualized lung bases: Unremarkable Liver: Few scattered hepatic cysts. Gallbladder: Unremarkable Spleen: Unremarkable Pancreas: Unremarkable Adrenal Glands: Unremarkable Kidneys: Minimal right hydroureteronephrosis. Multiple parapelvic cysts versus mild hydronephrosis on the left. GI Tract: Moderate amount retained stool in colon. The appendix is normal. Vasculature: Mild scattered aortoiliac atherosclerotic calcifications. Lymphadenopathy: None Peritoneum: No ascites. Bladder: Status post bladder prolapse repair. Reproductive organs: Status post hysterectomy and bilateral salpingo-oophorectomy. Bones/Soft tissues: Moderate scattered degenerative changes of the visualized spine. Mild degenerative changes of the hips. CT/Abdomen/Pelvis WITH Contrast IMPRESSION: Minimal right hydroureteronephrosis with no evidence of obstructing stone or mass. Multiple parapelvic cysts versus mild hydronephrosis on the left. Otherwise, no acute abnormalities in the abdomen or pelvis. Electronically Signed: Chon Burgos MD at 18:44 EDT Tel , Service support ,
== END ==
PROVIDERS: PCP Family Medicine; Referring Provider Urology; Visit Provider Urology
DX: R10.30 Lower abdominal pain, unspecified (principal); R11.0 Nausea
CPT/HCPCS: 36415; 74177; 80048; 85025; Q9967; A4216

== ENCOUNTER → 2020-10-05 12:39 | Outpatient (CLI) | payer MEDICARE, OTHER, SELFPAY ==
[2020-09-20 10:57] VITALS: BMI 26.4
--- NOTE | 2020-10-05 12:41 | VDLE_ITS ---
Reason For Study: SWELLING Procedure LEFT This is a venous duplex using B-mode, color GSV is normal. flow and spectral Doppler. CFV is compressible, spontaneous, phasic, Exam performed in department. competent, and demonstrates normal A preliminary report was called and/or faxed augmentation. to DR Adolfo RODARTE. FV is compressible, spontaneous, phasic, competent and demonstrates normal augmentation. POP V is compressible, spontaneous, phasic, competent and demonstrates normal augmentation. T/P Trunk is compressible. PTV is compressible. LT PerV is compressible. VL/Venous Duplex US, Unilateral Interpretation Summary There is no evidence of left lower extremity deep vein thrombosis. Left great s aphenous vein appears patent and compressible segmentally. 1.99 x 1.08 cm lymph node left groin Ordering Physician: Jose Rodarte Referring Physician: Jose Rodarte Performed By: Augustina Earl RDCS, RVT
== END ==
PROVIDERS: PCP Family Medicine; Referring Provider Family Medicine; Visit Provider Family Medicine
DX: M79.89 Other specified soft tissue disorders (principal)
CPT/HCPCS: 93971

== ENCOUNTER → 2020-10-09 13:18 | Outpatient (CLI) | payer MEDICARE, OTHER, SELFPAY ==
[2020-10-09 12:59] VITALS: BMI 25.8
[2020-10-11 16:09] LABS: Endomysial Antibody IgA Negative (Negative)
[2020-10-11 18:40] LABS: Immunoglobulin A 256 mg/dL (64-422); t-Transglutaminase IgA <2 U/mL (0-3)
== END ==
PROVIDERS: PCP Family Medicine; Referring Provider Family Medicine; Visit Provider Family Medicine
DX: R10.9 Unspecified abdominal pain (principal)
CPT/HCPCS: 36415; 82784; 83516; 86255

== ENCOUNTER → 2020-10-29 | Outpatient (CLI) | payer MEDICARE, OTHER, SELFPAY ==
[2020-10-09 12:59] VITALS: BMI 25.8
--- NOTE | 2020-10-29 | CYSPIN_PTH ---
PATIENT: CLAIRE HEADLEY LOC: [facility] U#:[id number] AGE/SX: 80/F ROOM: RE10/29/[address]: Dr. Elis Carrero MD : 1940 BED: DIS: 10/29/2020 SPEC #: [id number] RECD: 10/30/20 08:23 STATUS: MEENAKSHI REQ #: [id number] CARLA: 10/29/20 00:[address]: Elis Carrero DEPT: CYTOLOGY RECD BY: Michelle Whiting ENTERED: 10/30/20 08:23 SP TYPE: CYSPIN FL OTHR DR: Dr. Jose Rodarte, DO Tissues: Urine Procedures: Pap Stain (control) Special Stain Group II Cytospin Fluid HEADER OPERATION: Not noted PRE-OP DIAGNOSIS: Gross hematuria, dysuria TISSUE SUBMITTED: Urine for cytology DIAGNOSIS CYTOLOGY Urine for cytology (cytospin): A few mildly atypical urothelial cells noted, favor reactive. Mild acute inflammation. See comment. CARMEN:taras 10/30/2020 COMMENT Organisms consistent with bacteria are also noted. Clinical correlation and appropriate follow up are necessary. CYTOLOGY STUDY Slides are reviewed. CYTOLOGY GROSS Received is 40 ml of yellow cloudy fluid labeled with the patient's name and and designated per the requisition as urine. Submitted for cytology preparation. / taras 10/29/20 TC:5 CPT: 33417
[2020-10-29 16:17] LABS: Cytology, Body Fluid / CSF SEE PATHOLOGY REPORT
== END | disposition home or self-care (01) ==
LOC: LABSPEC 15:41
PROVIDERS: PCP Family Medicine; Referring Provider Urology; Visit Provider Urology
DX: R31.0 Gross hematuria (principal); R30.0 Dysuria
CPT/HCPCS: 88108; 88313

== ENCOUNTER 2021-01-26 20:00 | Emergency (ER) | payer MEDICARE, OTHER, SELFPAY ==
[2020-10-09 12:59] VITALS: BMI 25.8
[2021-01-26 20:01] VITALS: BP 153/104; PULSE 68; RESP 18; TEMP 36.6; O2SAT 95; BMI 27.9
[2021-01-26] MEDS: HYDROcodone Bitartrate/Apap 5/325 Tablet PO (20:25)
--- NOTE | 2021-01-26 20:25 | EDS_ITS ---
HPI History of Present Illness Chief Complaint: Upper Extremity Injury Informant: patient Occured/Mechanism Mechanism/Context: Yes injury and Yes blunt trauma Onset/Context/Timing Onset: Today and Hours Context: Sudden Onset Timing: Continuous Quality of Pain: Sharp Current Severity: Moderate Maximum Severity: Moderate Narrative Narrative: 80-year-old female history of hypertension and cystitis. Tripped tonight at home fell on a carpeted floor injuring her right wrist. She is right- hand dominant. She is never broken it or had surgery to her right wrist before. She denies hitting her head or having any other injuries. She felt fine prior to the fall. Prior similar symptoms: No Recent Illness/Hospitalization: No PFSH [facility] Medical History (Updated 01/26/21 @ 20:[address] Ken Diaz MD) Back problem Bladder prolapse GERD (gastroesophageal reflux disease) High blood pressure Vertigo Home Medications meclizine 25 mg chewable tablet 25 mg PO DAILY PRN 02/11/19 [History Last Taken Unknown] amlodipine 5 mg tablet 5 mg PO QHS #90 tab 07/03/20 [Rx Last Taken Unknown] omeprazole 20 mg capsule,delayed release 20 mg PO QHS #90 cap 09/20/20 [Rx Last Taken Unknown] valsartan 160 mg-hydrochlorothiazide 12.5 mg tablet 1 tab PO DAILY #90 tab 09/20/20 [Rx Last Taken Unknown] Bacillus coagulans 10 billion cell capsule,delayed release cell PO 10/09/20 [History Last Taken Unknown] ascorbate calcium (vitamin C) 500 mg tablet 500 mg PO DAILY 10/09/20 [History Last Taken Unknown] d-mannose 500 mg capsule mg PO 10/09/20 [History Last Taken Unknown] furosemide 20 mg tablet 20 mg PO DAILY #30 tablet 10/09/20 [Rx Last Taken Unknown] metronidazole 500 mg tablet ea PO 10/09/20 [History Last Taken Unknown] hydrocodone-acetaminophen 1 tab PO Q4H PRN 5 Days #20 tab 01/26/21 [Rx Last Taken Unknown] Allergy/AdvReac Type Severity Reaction Status Date / Time cephalexin [From Keflex] Allergy Swelling Verified 01/26/21 20:03 cephaeline AdvReac Unknown did not Verified 01/26/21 20:03 work Family History Mother Anemia Heart disease Hypertension Father Heart disease Grandmother Hypertension Brother Hypertension 3 brothers Surgical History History of lumpectomy of left breast History of total hysterectomy S/P dilation and curettage Social History Smoking Status: Never smoker alcohol intake: current details: occasionally substance use type: does not use caffeine: Yes what type of physical activity do you participate in: none seatbelt use: always do you feel safe at home: Yes additional social history: - Kendrick Both patient and retired ROS ROS ED ROS Narrative Denies recent illness. Review of Systems ROS Unobtainable: Denies due to encephalopathy Constitutional Constitutional ED: Denies frequent falls Eyes Eyes: Denies change in vision ENT ENT ED: Denies ear pain or sore throat Cardiovascular Cardiovascular: Denies chest pain Respiratory/Chest Respiratory/Chest: Denies cough or dyspnea Gastrointestinal Gastrointestinal: Denies abdominal pain, diarrhea, nausea or vomiting Genitourinary Genitourinary ED: Denies dysuria Musculoskeletal Musculoskeletal: Denies myalgias or neck pain Integumentary Denies rash Neurologic Neurologic: Denies headache(s) Psychiatric Psychiatric: Denies depression Endocrine Endocrinology: Denies polyuria Hematologic/Lymphatic Hematologic/Lymphatic: Denies easy bruising Allergic/Immunologic Allergic/Immunologic ED: Denies urticaria EXAM Physical Exam Narrative Exam Narrative: Well-appearing 72-year-old female. Vital signs stable. Afebrile. HEENT neck heart lung abdominal exams unremarkable. Back nontender. Moving all 4 extremities. Neurovascularly intact. Her right wrist is deformed. Appears to be obviously broken. Skin intact. Able to wiggle her fingers. Touch sensation intact cap refill intact. Radial pulse intact. Tender over the distal radius with deformity. Proximal forearm elbow and shoulder are nontender. Neurologically she is awake and alert. Const Vital Signs: 01/26/21 20:01 Temperature 97.9 F Temperature Source Temporal Pulse Rate 68 Respiratory Rate 18 Blood Pressure 153/104 H Blood Pressure Mean 120 Pulse Ox 95 Oxygen Delivery Method Room Air Positive well nourished and well developed; Negative for obese, cachectic or contractures General Appearance ED: well developed and NAD; Negative for cachectic or contractures Nutritional Appearance: Negative for cachectic or obese HEENT Reports moist mucous membranes normocephalic and atraumatic; Negative for trauma or tenderness Eyes PERRL and EOMs intact bilaterally Neck full ROM and supple General: Negative for tenderness Chest Wall inspection of chest normal and palpation of chest normal Resp normal respiratory effort and clear to auscultation bilaterally Cardio regular rate, regular rhythm, S1 normal heart sound, S2 normal heart sound and no murmurs GI non-tender, non-distended and no masses Auscultation: normoactive bowel sounds Palpation: soft; Negative for tender or guarding Back/Spine no CVA tenderness Cervical Spine: Negative for cervical spine tenderness Thoracic Spine / Upper Back: Negative for thoracic spinal tenderness Lumbar Spine / Lower Back: Negative for lumbar spinal tenderness Extremity normal to inspection Extremity Narrative: Except right wrist deformed tender with decreased range of motion consistent with a right wrist fracture. Skin intact. Right hand neuro vascularly intact with touch sensation and cap refill. Palpable radial pulse. Neuro oriented x3 and moves all extremities Sensorium / Orientation: alert, oriented to person, oriented to place and oriented to time; Negative for orientation impaired, lethargic or stuporous Motor Exam: strength 5/5 throughout Psych mental status grossly normal Skin Lesions: no lesions Rashes: no rashes MDM MDM MDM Narrative Medical decision making narrative: 80-year-old female fall with an obvious right wrist fracture. X-ray being obtained. 1 [place] for pain. Radiography Diagnostic Testing: Right wrist x-ray 3 views interpreted by myself shows an obvious distal radius fracture dorsally displaced and shortened. I went over the film with the patient and family. Postreduction x-rays definitely improved. Patient has lost some of her volar tilt. But there is better alignment. I went over the films with the family and they noted follow-up with orthopedics. Right wrist 3 views interpreted by myself. Procedures Upper Extremity Splints Upper Extremity Splint: Orthoglass Splint Fabrication: Fabricated Location: Right Other Procedures Procedure(s): Right wrist distal radius fracture reduction. Wrist cleaned with alcohol swab. I used 10 cc of plain performed a hematoma block to the distal radius. Patient was placed in finger traps. After about 20+ minutes. I reduced the distal radius fracture manually. Patient was placed in a short arm well-padded AP splint. She tolerated procedure well. Post procedure x-ray good reduction of the fracture. Will need follow-up with orthopedics and may require surgery depending after orthopedic evaluation. Discharge Plan Triage Chief Complaint: Upper Extremity Injury ED Provider: Ken Diaz Dx/Rx/DC Orders Clinical Impression: Fall, Wrist fracture, right Instructions: ED Fracture, Wrist, General Prescriptions: New hydrocodone-acetaminophen 5-325 mg tablet 1 tab PO Q4H PRN (Reason: pain) 5 Days Qty: 20 RF: 0 No Action meclizine 25 mg tablet,chewable 25 mg PO DAILY PRNRF: 0 omeprazole 20 mg capsule,delayed release(DR/EC) 20 mg PO QHS Qty: 90 RF: 1 valsartan-hydrochlorothiazide 160-12.5 mg tablet 1 tab PO DAILY Qty: 90 RF: 3 metronidazole 500 mg tablet PO RF: 0 ascorbate calcium (vitamin C) 500 mg tablet 500 mg PO DAILY RF: 0 d-mannose 500 mg capsule PO RF: 0 Probiotic (B. coagulans) 10 billion cell capsule,delayed release(DR/EC) PO RF: 0 furosemide 20 mg tablet 20 mg PO DAILY Qty: 30 RF: 2 amlodipine 5 mg tablet 5 mg PO QHS Qty: 90 RF: 3 Primary Care Provider: Jose Rodarte Referrals: Jose Rodarte, [Primary Care Provider] - Dontae Peterson MD [STAFF PHYSICIAN] - As soon as possible Activity Restrictions/Additional Instructions: Ice and elevate to decrease pain and swelling. [place] for pain if you don't need medication that strong you may use just Tylenol and/or Motrin. Do not use more than 2 Motrin twice a day however. Keep the splint dry and clean. Call and follow-up with either Dr. Saul Peterson or an orthopedic physician of your choice on Thursday to be seen this week to have this further evaluated. Disposition Disposition: Home, Self Care
--- NOTE | 2021-01-26 20:27 | RAD_ITS ---
STUDY: X-RAY - RIGHT WRIST REASON FOR EXAM: Female, 80 years old. pain TECHNIQUE: 3 view(s) of the wrist were obtained. COMPARISON: None. FINDINGS: There is demineralization of the radius and ulna. There is degenerative arthrosis of the radiocarpal articulation. Normal distal radioulnar articulation. Normal carpal bones. Normal carpal articulations. Distal radial fracture. There is impaction and dorsal displacement of the distal fracture There is degenerative arthrosis of the carpometacarpal articulation of the thumb. Normal second through fifth carpometacarpal articulations. There is demineralization of the metacarpal bones. Soft tissue swelling RAD/Wrist min 3 Views IMPRESSION: Distal radial fracture. Electronically Signed: Sebastien Levy MD at 21:02 EDT , Service support ,
--- NOTE | 2021-01-26 21:14 | RAD_ITS ---
STUDY: X-RAY - RIGHT WRIST REASON FOR EXAM: Female, 80 years old. Post fracture reduction TECHNIQUE: 3 view(s) of the wrist were obtained. COMPARISON: February 05 2621 at 20:18 hours FINDINGS: Status post reduction of distal radial fracture with decreasing angulation. A cast has been applied. RAD/Wrist min 3 Views IMPRESSION: Status post distal radial fracture reduction and cast placement. Electronically Signed: Urban Collins DO at 22:05 EDT Tel [phone], Service support ,
[2021-01-26] MEDS: Lidocaine 1% (20 ml mdv) 20 ML Vial 10 ML INFILT (21:35)
== END 2021-01-26 21:48 | disposition home or self-care (01) ==
PROVIDERS: Emergency Provider Emergency Medicine; PCP Family Medicine
DX: S52.501A Unspecified fracture of the lower end of right radius, initial encounter for closed fracture (principal); W01.0XXA Fall on same level from slipping, tripping and stumbling without subsequent striking against object, initial encounter; Y93.9 Activity, unspecified; Y92.009 Unspecified place in unspecified non-institutional (private) residence as the place of occurrence of the external cause; I10 Essential (primary) hypertension; K21.9 Gastro-esophageal reflux disease without esophagitis; Z87.448 Personal history of other diseases of urinary system; Z79.899 Other long term (current) drug therapy
CPT/HCPCS: 25605; 73110; 99283

== ENCOUNTER 2021-07-08 13:56 | Emergency (ER) | payer MEDICARE, OTHER, SELFPAY ==
[2021-07-08 13:57] VITALS: BP 153/97; PULSE 73; RESP 18; TEMP 35.8; O2SAT 97; BMI 27.0
[2021-07-08 14:52] LABS: Mucous, Urine 0 SEEN /hpf (<or=2+)
[2021-07-08 14:55] LABS: Glucose, Dipstick Normal (Normal); Ketone-Dipstick Negative (Negative); Leukocyte Esterase-Dipstick 100 /ul (Negative); Nitrite-Dipstick Positive (Negative); Occult Blood-Urine 250 /ul (Negative); Protein-Dipstick 30 mg/dl (Negative); Specific Gravity, Urine 1.015 (1.002-1.030); Urine Bilirubin Dipstick Negative (Negative); Urine Clarity Cloudy (Clear); Urine Urobilinogen Normal (Normal); Urine pH 6.5 (5.0 - 8.0)
[2021-07-08 14:57] LABS: Color, Urine SEE COMMENT BELOW (Yellow)
[2021-07-08 15:15] LABS: Red Blood Cells-Urine > 100 SEEN /hpf (0-5); Squamous Epithelial Cells - UA 5-10 SEEN /hpf (5-10); White Blood Cells 10-25 SEEN /hpf (0-5)
[2021-07-08 15:16] LABS: Bacteria 3+ /hpf (None Seen)
--- NOTE | 2021-07-08 15:18 | EDS_ITS ---
HPI History of Present Illness Chief Complaint: Complaint Informant: patient Onset/Context/Timing Onset: Days (3) Context: Gradual Onset Timing: Continuous Quality: Sharp Location: Suprapubic Worsened by: Nothing Relieved by: Nothing Narrative Narrative: Patient admits to hematuria that has been getting progressively worse over the past 3 days. Patient states she has a history of interstitial cystitis and frequent urinary tract infections. Patient states she has sharp pain over the suprapubic area. Patient states this is worse prior to urination. Patient denies any pain with urination. Patient states nothing makes the pain worse and nothing makes it better. Patient denies any fevers or chills. Patient denies any back or flank pain. [facility] Medical History (Updated 07/08/21 @ 15:[address] Williams Ruiz, ) Back problem Bladder prolapse GERD (gastroesophageal reflux disease) High blood pressure Vertigo Home Medications meclizine 25 mg chewable tablet 25 mg PO DAILY PRN 02/11/19 [History Last Taken Unknown] valsartan 160 mg-hydrochlorothiazide 12.5 mg tablet 1 tab PO DAILY #90 tab 09/20/20 [Rx Last Taken Unknown] Bacillus coagulans 10 billion cell capsule,delayed release cell PO 10/09/20 [History Last Taken Unknown] ascorbate calcium (vitamin C) 500 mg tablet 500 mg PO DAILY 10/09/20 [History Last Taken Unknown] d-mannose 500 mg capsule mg PO 10/09/20 [History Last Taken Unknown] amlodipine 5 mg tablet 5 mg PO QHS #90 tab 06/19/21 [Rx Last Taken Unknown] omeprazole 20 mg capsule,delayed release 20 mg PO QHS #90 cap 06/19/21 [Rx Last Taken Unknown] methen-sod phos-meth blue-hyos [Urogesic-Blue] tab 07/08/21 [History Last Taken Unknown] mirabegron [Myrbetriq] 50 mg PO DAILY 07/08/21 [History Last Taken Unknown] nitrofurantoin monohyd/m-cryst 100 mg PO Q12 #10 capsule 07/08/21 [Rx Last Taken Unknown] Allergy/AdvReac Type Severity Reaction Status Date / Time cephalexin [From Keflex] Allergy Swelling Verified 07/08/21 13:58 cephaeline AdvReac Unknown did not Verified 07/08/21 13:58 work Family History Mother Anemia Heart disease Hypertension Father Heart disease Grandmother Hypertension Brother Hypertension 3 brothers Surgical History History of lumpectomy of left breast History of total hysterectomy S/P dilation and curettage Social History Smoking Status: Never smoker alcohol intake: current details: occasionally substance use type: does not use caffeine: Yes what type of physical activity do you participate in: none seatbelt use: always do you feel safe at home: Yes additional social history: - Kendrick Both patient and retired ROS ROS ED Constitutional Constitutional ED: Denies chills or fever(s) Eyes Eyes: Denies blurry vision or change in vision ENT ENT ED: Denies rhinorrhea or sore throat Cardiovascular Cardiovascular: Denies chest pain or palpitations Respiratory/Chest Respiratory/Chest: Denies cough or dyspnea Gastrointestinal Gastrointestinal: Denies nausea or vomiting Genitourinary Genitourinary ED: Reports dysuria and hematuria Musculoskeletal Musculoskeletal: Denies back pain or neck pain Integumentary Denies abscess or rash Neurologic Neurologic: Denies headache(s) or weakness Allergic/Immunologic Allergic/Immunologic ED: Denies mouth swelling or urticaria EXAM Physical Exam Const Vital Signs: 07/08/21 13:57 Temperature 96.5 F L Temperature Source Temporal Pulse Rate 73 Respiratory Rate 18 Blood Pressure 153/97 H Blood Pressure Mean 115 Pulse Ox 97 Oxygen Delivery Method Room Air Positive well nourished and well developed General Appearance ED: well developed HEENT Reports moist mucous membranes Neck supple and no JVD Resp normal respiratory effort and clear to auscultation bilaterally Cardio regular rate, regular rhythm and no murmurs GI normal to inspection, nondistended, normoactive bowel sounds Palpation: soft and tender suprapubic; Negative for guarding or rebound tenderness present Extremity normal to inspection General Extremety ED: Negative for edema or tenderness General Extremity: Negative for edema Neuro oriented x3, CN's II-XII intact bilaterally and no sensory deficits noted Sensorium / Orientation: alert Motor Exam: strength 5/5 throughout Psych mental status grossly normal Skin no rashes or lesions noted MDM MDM MDM Narrative Medical decision making narrative: Urinalysis was obtained. Leukocyte esterase was 100. There were positive nitrates. There were greater than 100 red blood cells and 10-25 white blood cells. There is 3+ bacteria. Urine culture was ordered. Patient was started on Macrobid here. Patient was given her first dose here. Patient was given a prescription. Patient was instructed to follow- up with her primary care physician and urologist in 5 to 7 days. Patient understood and was agreeable with the plan. All questions were answered. Lab Data Labs: Laboratory Results - last 24 hr 07/08/21 14:42 Urine Color SEE COMMENT BELOW Urine Clarity Cloudy Urine pH 6.5 Ur Specific [facility] 1.015 Urine Protein 30 H Urine Glucose (UA) Normal Urine Ketones Negative Urine Occult Blood 250 H Urine Nitrite Positive H Urine Bilirubin Negative Urine Urobilinogen Normal Ur Leukocyte Esterase 100 H Urine RBC > 100 SEEN Urine WBC 10-25 SEEN Ur Squamous Epith Cells 5-10 SEEN Urine Bacteria 3+ Urine Mucus 0 SEEN Discharge Plan Triage Chief Complaint: Complaint ED Provider: Williams Ruiz Dx/Rx/DC Orders Clinical Impression: Cystitis Instructions: ED CYSTITIS Female Adult Prescriptions: New nitrofurantoin monohyd/m-cryst [nitrofurantoin monohyd/m-cryst] 100 MG capsule 100 mg PO Q12 Qty: 10 RF: 0 No Action meclizine 25 mg tablet,chewable 25 mg PO DAILY PRN (Reason: Dizziness) RF: 0 valsartan-hydrochlorothiazide 160-12.5 mg tablet 1 tab PO DAILY Qty: 90 RF: 3 ascorbate calcium (vitamin C) 500 mg tablet 500 mg PO DAILY RF: 0 d-mannose 500 mg capsule PO RF: 0 Probiotic (B. coagulans) 10 billion cell capsule,delayed release(DR/EC) PO RF: 0 methen-sod phos-meth blue-hyos [Urogesic-Blue] 81.6-40.8-0.12 mg tablet RF: 0 Myrbetriq 50 mg Tablet Extended Release 24 Hr 50 mg PO DAILY RF: 0 omeprazole 20 mg capsule,delayed release(DR/EC) 20 mg PO QHS Qty: 90 RF: 1 amlodipine 5 mg tablet 5 mg PO QHS Qty: 90 RF: 3 Primary Care Provider: Jose Rodarte Referrals: Jose Rodarte, DO [Primary Care Provider] - 5-7 Days Elis Carrero MD [STAFF PHYSICIAN] - 5-7 Days Disposition Disposition: Home, Self Care
[2021-07-08] MEDS: Nitrofurantoin Macrocrystals 100 MG Capsule PO (15:54)
[2021-07-08 15:59] VITALS: RESP 18
== END 2021-07-08 15:59 | disposition home or self-care (01) ==
PROVIDERS: Emergency Provider Emergency Medicine; PCP Family Medicine; Visit Provider Emergency Medicine
DX: N30.91 Cystitis, unspecified with hematuria (principal); Z87.440 Personal history of urinary (tract) infections; K21.9 Gastro-esophageal reflux disease without esophagitis; I10 Essential (primary) hypertension; Z79.899 Other long term (current) drug therapy
CPT/HCPCS: 81001; 99283

== ENCOUNTER 2021-10-09 15:35 | Outpatient (CLI) | payer MEDICARE, OTHER, SELFPAY ==
[2021-10-09 17:07] LABS: ALB/GLOB Ratio 1.1 RATIO (0.9-2.4); AST(SGOT) 20 U/L (15-37); Alanine Aminotransfer ALT/SGPT 23 U/L (13-56); Albumin, Serum 3.5 g/dL (3.2-5.0); Alkaline Phosphatase 66 U/L (45-117); Anion Gap 7 (5-15); BUN 21 mg/dL (7-18); BUN/Creat Ratio 25.1 RATIO (10-20); Chloride 105 mmol/L (98-107); Creatinine, Serum 0.84 mg/dL (0.55-1.02); EST Glomerular Filtration Rate 70 mL/min (>60); Est Glom Filt Rate - Afr Amer 85 mL/min (>60); Globulin 3.2 g/dL (2.2-4.2); Glucose 126 mg/dL (74-106); Potassium 3.5 mmol/L (3.5-5.1); Protein, Total 6.7 g/dL (6.4-8.2); Sodium Level 141 mmol/L (136-145)
== END 2021-10-09 23:59 | disposition home or self-care (01) ==
LOC: BIMLAB 15:36
PROVIDERS: PCP Family Medicine; Visit Provider Family Medicine
DX: I10 Essential (primary) hypertension (principal)
CPT/HCPCS: 36415; 80053

== ENCOUNTER 2022-02-05 09:34 | Day surgery (SDC) | payer MEDICARE, OTHER, SELFPAY ==
--- NOTE | 2022-02-05 | IMM_PTH ---
PATIENT: CLAIRE HEADLEY LOC: EN U#:[id number] AGE/SX: 81/F ROOM: RE02/05/[address]: Dr. Guru De La Rosa DO : 1940 BED: DIS: 02/05/2022 SPEC #: [id number] RECD: 02/06/22 06:52 STATUS: MEENAKSHI REQ #: [id number] CARLA: 02/05/22 00:[address]: Guru De La Rosa DEPT: IMMUNOHISTOCHEMISTRY RECD BY: Gianluca Scahfer ENTERED: 02/06/22 06:52 SP TYPE: IMMUNO OTHR DR: Dr. Jose Rodarte, Tissues: Gastric mucous membrane Procedures: H Pylori (initial) PHYSICIAN & INSTITUTION [place] [id number] SPECIMEN INFORMATION: Tissue Source: B. Gastric antrum Clinical Info: GERD and nausea Specimen Number: [id number] CPT code: 68591 METHODOLOGY: Deparaffinized sections of prefer/formalin-fixed tissue or PAP/DQ stained slides are incubated with monoclonal/polyclonal antibodies/oligonucleotide probes. Localization is made via biotin free immunoperoxidase method. Appropriate controls are performed and reacted as expected. Results on target cell population are indicated in the following table: RESULTS: ANTIBODY / CLONE RESULT Block B H Pylori (polyclonal) negative These tests were developed and their performance characteristics determined by [facility]. They may not have been cleared or approved by the U.S. Food and Drug Administration. The FDA has determined that such clearance or approval is not necessary. The above immunohistochemical/dualISH markers are ordered and reviewed by the Pathologist. INTERPRETATION: B. Gastric antrum: Negative for Helicobacter pylori organisms. SJ:garrett 02/06/22
[2022-02-05] MEDS: Lactated Ringers 1,000 ML 15 ML IV (09:50)
[2022-02-05 10:03] VITALS: BP 142/68; PULSE 53; RESP 16; TEMP 36.6; O2SAT 95; BMI 27.2
--- NOTE | 2022-02-05 10:45 | EGD_PTH ---
PATIENT: CLAIRE HEADLEY LOC: EN U#:[id number] AGE/SX: 81/F ROOM: RE02/05/[address]: Dr. Guru De La Rosa DO : 1940 BED: DIS: 02/05/2022 SPEC #: [id number] RECD: 02/05/22 11:14 STATUS: MEENAKSHI REAmena #: [id number] CARLA: 02/05/22 10:[address]: Guru De La Rosa DEPT: SURGICAL PATHOLOGY RECD BY: Michelle Whiting ENTERED: 02/05/22 11:52 SP TYPE: EGD BIOPSY LUPE DR: Dr. Jose Rodarte DO Tissues: A - Duodenum, NOS B - Gastric mucous membrane C - Esophagus, NOS Procedures: Surgery Specimen Level IV HEADER OPERATION: EGD ([facility]) PRE-OP DIAGNOSIS: GERD and nausea TISSUE SUBMITTED: A. Duodenum biopsy, B. Gastric antrum, C. Distal esophagus biopsy MICROSCOPIC DIAGNOSIS A. Duodenum, biopsy: Fragments of duodenal mucosa, no pathologic diagnosis. B. Gastric antrum, biopsy: Mild gastritis. See microscopic description and comment. C. 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 Mild chronic inflammation. Negative for dysplasia. See comment. 02/06/22 COMMENT B. The results of immunohistochemistry for Helicobacter pylori will be reported separately ([id number]). C. Alcian blue/PAS stain with matched control supports the above diagnosis. MICROSCOPIC DESCRIPTION Slides are reviewed. The specimen shows fragments of gastric mucosa with chronic inflammatory cell infiltrates in the lamina propria consisting of lymphocytes and plasma cells, consistent with mild chronic gastritis. GROSS DESCRIPTION A. Received is one container labeled with the patient name and designated duodenum. The specimen consists of two irregular fragments of light horner soft tissue that in aggregate measure 0.6 x 0.3 x 0.1 cm. The specimen is totally submitted in one cassette. B. Received is one container labeled with the patient name and designated gastric antrum. The specimen consists of multiple irregular fragments of light horner soft tissue that in aggregate measure 1.0 x 0.3 x 0.1 cm. The specimen is totally submitted in one cassette. C. Received is one container labeled with the patient name and designated distal esophagus. The specimen consists of multiple irregular fragments of light horner soft tissue that in aggregate measure 1.0 x 0.5 x 0.1 cm. The specimen is totally submitted in one cassette. /SJ?cc 02/05/22 TC:3 CPT:04012 x3, 04161
--- NOTE | 2022-02-05 10:46 | PCM.HP.BLA ---
History and Physical Date of Admission: 02/05/22 81 F who presents to the office today for GERD. She reports lifelong hx of acid reflux, as do her brother and nieces.? She has chronically had nausea associated with her acid reflux.? Her symptoms have worsened, she attributes this to increased stress due to her 's health conditions. She c/o nausea every day, doesn't wake up with nausea, occurs when she eats, better with cinnamon candies. No vomiting. Reflux especially when lying down. She got some relief of symptoms with omeprazole, yet efficacy waned. Same degree of efficacy with pantoprazole 40 mg daily, she started pantoprazole over a month ago. Nothing has helped more than the cinnamon candy. No dysphagia. Bowels good if I keep on top of it. Was using dulcolax every night until one week ago when she started senna tea which is more effective. Has BM daily, no straining, feels like bowels evacuate. No abdominal pain. No melena or hematochezia. Had EGD about 30 yrs ago. No prior colonoscopy, and she doesn't want one now. 09/25/20 CT abd pel w/ IV contrast: no GI findings Comorbidities include chronic vertigo, hypertension, interstitial cystitis ROS Const Constitutional: No fatigue ENT ENT: No difficulty swallowing Gastro GI: No abdominal pain, belching, bloating, change in bowel habits, change in stool character, coffee ground emesis, constipation, cramping, diarrhea, heartburn, difficulty swallowing, feeling full early, excessive flatus, incontinent of stools, Vomiting blood/hematemesis, Blood in stool, loose stools, Black,tarry stools, nausea/dyspepsia, pain with swallowing, vomiting or other Musc Musculoskeletal: Positive for sciatica; No joint pain Skin Skin: No yellowing of the eye or itchy eyes Psych Psychiatric: No anxiety and No depression Endo Endocrine: No fatigue Aller/Imm Allergy/Immunologic: No itchy eyes Jeremi/Lymp Hematologic/Lymphatic: No easy bleeding or easy bruising Exam Const General: cooperative, comfortable, well developed and well groomed Nutritional Appearance: overweight Eyes General: appearance normal, both eyes and all related structures Chest Chest palpation & inspection: normal inspection of the chest Resp Effort & Inspection: normal respiratory effort GI Inspection: normal to inspection Palpation: soft and nontender Skin General: no rashes or lesions noted Neuro Speech: speech normal Gait: normal gait Extrem General: no pedal edema Quality Reporting Tobacco Screening (CMS 138) Smoking Status: Never smoker Assessment and Plan Assessment and Plan (1) GERD (gastroesophageal reflux disease): ?Status:?Chronic (2) Nausea: ?Status:?Acute ?Plan - Ayleen Mendez INSOLE AND OUTSOLE PREPARER, INSOLE AND OUTSOLE PREPARER-C: 81-year-old female with long history of GERD that is associated with nausea.? PPI never fully effective, and with waning efficacy over time.? She finds cinnamon candies to be helpful with her nausea.? She is willing to schedule EGD, but declines colonoscopy.? We will increase PPI to twice daily for the next 2 months and we will use sucralfate 3 times a day for 1 month to see if we can get her feeling better sooner rather than later.? Follow-up 2 weeks after endoscopy to discuss biopsy results. Plan Details Other Medications: ?New: ? sucralfate 1 g? PO QAC 1 month 90 tabs 0RF ?Changed: ? From: pantoprazole 40 mg? PO DAILY 90 tabs 1RF ? ? ? To: pantoprazole 40 mg? PO BID 2 months 120 tabs 0RF ?Discontinued: ? mirabegron ER (Myrbetriq) ?? Discontinued Reason:? Pt no longer taking 50 mg? PO DAILY ? ? H&P no [id number] F who presents to the office today for GERD. She reports lifelong hx of acid reflux, as do her brother and nieces.? She has chronically had nausea associated with her acid reflux.? Her symptoms have worsened, she attributes this to increased stress due to her 's health conditions. She c/o nausea every day, doesn't wake up with nausea, occurs when she eats, better with cinnamon candies. No vomiting. Reflux especially when lying down. She got some relief of symptoms with omeprazole, yet efficacy waned. Same degree of efficacy with pantoprazole 40 mg daily, she started pantoprazole over a month ago. Nothing has helped more than the cinnamon candy. No dysphagia. Bowels good if I keep on top of it. Was using dulcolax every night until one week ago when she started senna tea which is more effective. Has BM daily, no straining, feels like bowels evacuate. No abdominal pain. No melena or hematochezia. Had EGD about 30 yrs ago. No prior colonoscopy, and she doesn't want one now. 09/25/20 CT abd pel w/ IV contrast: no GI findings Comorbidities include chronic vertigo, hypertension, interstitial cystitis ROS Const Constitutional: No fatigue ENT ENT: No difficulty swallowing Gastro GI: No abdominal pain, belching, bloating, change in bowel habits, change in stool character, coffee ground emesis, constipation, cramping, diarrhea, heartburn, difficulty swallowing, feeling full early, excessive flatus, incontinent of stools, Vomiting blood/hematemesis, Blood in stool, loose stools, Black,tarry stools, nausea/dyspepsia, pain with swallowing, vomiting or other Musc Musculoskeletal: Positive for sciatica; No joint pain Skin Skin: No yellowing of the eye or itchy eyes Psych Psychiatric: No anxiety and No depression Endo Endocrine: No fatigue Aller/Imm Allergy/Immunologic: No itchy eyes Jeremi/Lymp Hematologic/Lymphatic: No easy bleeding or easy bruising Exam Const General: cooperative, comfortable, well developed and well groomed Nutritional Appearance: overweight Eyes General: appearance normal, both eyes and all related structures Chest Chest palpation & inspection: normal inspection of the chest Resp Effort & Inspection: normal respiratory effort GI Inspection: normal to inspection Palpation: soft and nontender Skin General: no rashes or lesions noted Neuro Speech: speech normal Gait: normal gait Extrem General: no pedal edema Quality Reporting Tobacco Screening ([facility] 138) Smoking Status: Never smoker Assessment and Plan Assessment and Plan (1) GERD (gastroesophageal reflux disease): ?Status:?Chronic (2) Nausea: ?Status:?Acute ?Plan - Ayleen Mendez INSOLE AND OUTSOLE PREPARER, INSOLE AND OUTSOLE PREPARER-C: 81-year-old female with long history of GERD that is associated with nausea.? PPI never fully effective, and with waning efficacy over time.? She finds cinnamon candies to be helpful with her nausea.? She is willing to schedule EGD, but declines colonoscopy.? We will increase PPI to twice daily for the next 2 months and we will use sucralfate 3 times a day for 1 month to see if we can get her feeling better sooner rather than later.? Follow-up 2 weeks after endoscopy to discuss biopsy results. Plan Details Other Medications: ?New: ? sucralfate 1 g? PO QAC 1 month 90 tabs 0RF ?Changed: ? From: pantoprazole 40 mg? PO DAILY 90 tabs 1RF ? ? ? To: pantoprazole 40 mg? PO BID 2 months 120 tabs 0RF ?Discontinued: ? mirabegron ER (Myrbetriq) ?? Discontinued Reason:? Pt no longer taking 50 mg? PO DAILY ? ? I have re-examined the patient. There are no clinical changes since date of exam. ?
[2022-02-05 11:03] VITALS: BP 107/76; BP 142/68; PULSE 81; RESP 18; TEMP 36.6; O2SAT 99
[2022-02-05 11:05] VITALS: BP 107/78; BP 142/68; PULSE 81; RESP 18; O2SAT 94
--- NOTE | 2022-02-05 11:07 | OP.EGD_ITS ---
Patient Name: Silvana Bearden Procedure Date: 02/05/2022 10:42 AM Date of : 1940 Age: 81 Procedure: Upper GI endoscopy Indications: Epigastric abdominal pain, Functional Dyspepsia, Heartburn Providers: Guru De La Rosa DO Medicines: Monitored Anesthesia Care Patient Profile: This is a 81 year old female. Refer to note in patient chart for documentation of history and physical. Patient has symptoms of acute epigastric abdominal pain and chronic dyspepsia. Complications: No immediate complications. Procedure: Pre-Anesthesia Assessment: - Prior to the procedure, a History and Physical was performed, and patient medications and allergies were reviewed. The risks and benefits of the procedure and the sedation options and risks were discussed with the patient. All questions were answered and informed consent was obtained. Patient identification and proposed procedure were verified by the physician in the pre-procedure area. Mental Status Examination: alert and oriented. Airway Examination: normal oropharyngeal airway and neck mobility. Respiratory Examination: clear to auscultation. CV Examination: normal. Prophylactic Antibiotics: The patient does not require prophylactic antibiotics. Prior Anticoagulants: The patient has taken no previous anticoagulant or antiplatelet agents. After reviewing the risks and benefits, the patient was deemed in satisfactory condition to undergo the procedure. The anesthesia plan was to use moderate sedation / analgesia (conscious sedation). Immediately prior to administration of medications, the patient was re-assessed for adequacy to receive sedatives. The heart rate, respiratory rate, oxygen saturations, blood pressure, adequacy of pulmonary ventilation, and response to care were monitored throughout the procedure. The physical status of the patient was re-assessed after the procedure. After obtaining informed consent, the endoscope was passed under direct vision. Throughout the procedure, the patient's blood pressure, pulse, and oxygen saturations were monitored continuously. The gastroscope was introduced through the mouth, and advanced to the second part of duodenum. The upper GI endoscopy was accomplished without difficulty. The patient tolerated the procedure well. Scope In: 10:53:28 AM Scope Out: 10:57:25 AM Total Procedure Duration Time 0 hours 3 minutes 57 seconds Findings: LA Grade A (one or more mucosal breaks less than 5 mm, not extending between tops of 2 mucosal folds) esophagitis with no bleeding was found 35 to 37 cm from the incisors. Biopsies were taken with a cold forceps for histology. Verification of patient identification for the specimen was done. Estimated blood loss was minimal. A medium-sized hiatal hernia was present. Scattered moderate inflammation characterized by erosions and erythema was found in the gastric body and in the gastric antrum. Biopsies were taken with a cold forceps for histology. Verification of patient identification for the specimen was done. Estimated blood loss was minimal. The first portion of the duodenum was normal. Biopsies were taken with a cold forceps for histology. Verification of patient identification for the specimen was done. Estimated blood loss was minimal. A few 5 mm sessile polyps with no bleeding and no stigmata of recent bleeding were found in the stomach. These were benign fundic gland polyps. Impression: - LA Grade A reflux esophagitis. Biopsied. - Medium-sized hiatal hernia. - Gastritis. Biopsied. - Normal first portion of the duodenum. Biopsied. Recommendation: - Discharge patient to home. - Resume previous diet. - Continue present medications. - Await pathology results. Procedure Code(s): --- Professional --- 81893, Esophagogastroduodenoscopy, flexible, transoral; with biopsy, single or multiple CPT copyright 2017 [employer]. All rights reserved. The codes documented in this report are preliminary and upon report programmer review may be revised to meet current compliance requirements. Guru De La Rosa DO 02/05/2022 11:07:02 AM This report has been signed electronically. Number of Addenda: 1 Note Initiated On: 02/05/2022 10:42 AM Addendum Number: 1 Addendum Date: 03/27/2022 6:15:33 AM MAC was used as sedation for this procedure. Guru De La Rosa DO 03/27/2022 6:15:38 AM This report has been signed electronically.
--- NOTE | 2022-02-05 11:08 | OP.CCLET_ITS ---
03/27/2022 Jose Rodarte Re : Upper GI endoscopy procedure for Silvana Bearden Dear Dr. Rodarte This procedure was performed on Saturday, February 05, 2022. My impressions and recommendations are as follows: Impressions : - LA Grade A reflux esophagitis. Biopsied. - Medium-sized hiatal hernia. - Gastritis. Biopsied. - Normal first portion of the duodenum. Biopsied. Recommendations : - Discharge patient to home. - Resume previous diet. - Continue present medications. - Await pathology results. My findings are described in the full procedure note, which is enclosed. If I can be of further assistance, please feel free to contact me at . Sincerely, Guru De La Rosa DO 02/05/2022 11:07:02 AM This report has been signed electronically.
[2022-02-05 11:10] VITALS: BP 116/81; BP 142/68; PULSE 81; RESP 18; O2SAT 95
[2022-02-05 11:16] VITALS: BP 127/86; BP 142/68; PULSE 77; RESP 18; TEMP 36.8; O2SAT 95
[2022-02-05 11:43] VITALS: BP 142/68
== END 2022-02-05 11:52 | disposition home or self-care (01) ==
LOC: EN 09:36 → AC 09:43
PROVIDERS: PCP Family Medicine; Referring Provider Family Medicine; Visit Provider Internal Medicine Gastroenterology
PROC: 0DJ08ZZ Inspection of Upper Intestinal Tract, Via Natural or Artificial Opening Endoscopic (ICD-10-PCS; CPT 43235; principal; 2022-02-05 10:40)
DX: K29.70 Gastritis, unspecified, without bleeding (principal); K44.9 Diaphragmatic hernia without obstruction or gangrene; K21.00 Gastro-esophageal reflux disease with esophagitis, without bleeding; G89.29 Other chronic pain; Z79.899 Other long term (current) drug therapy; I10 Essential (primary) hypertension
CPT/HCPCS: 43239; 88305; 88342; J7120; J2405

== ENCOUNTER → 2022-03-19 | Outpatient (CLI) | payer MEDICARE, OTHER, SELFPAY ==
[2022-03-19 12:26] LABS: Absolute Lymphocyte Count 1.23 X10^3/uL (0.83-4.51); Absolute Neutrophil Count 3.3 X10^3/uL (2.0-7.7); Basophil# 0.05 X10^3/uL; Basophil% 0.9 % (0-1); Eosinophil# 0.25 X10^3/uL; Eosinophils% 4.7 % (0-5); Erythrocyte Sedimentation Rate 11 mm/hr (0-30); Hematocrit 40.7 % (37-47); Hemoglobin 13.5 g/dL (12.0-15.0); Lymphocyte # 1.23 X10^3/ul (0.83-4.51); Mean Corp Hgb Conc 33.2 g/dL (32-36); Mean Corpuscular Hgb 30.2 pg (27.0-32.0); Mean Corpuscular Volume 91.1 fL (81-99); Mean Platelet Vol. 11.9 fl (6.2-12.0); Monocyte# 0.48 X10^3/uL; NRBC Flagged by Analyzer 0 % (0-5); Neutrophil # 3.32 X10^3/uL (2.7-7.7); Platelet Count 251 K/mm3 (150-450); RBC Distribution Width CV 13.2 % (11.6-14.6); RBC Distribution Width SD 43.7 fl (35.1-43.9); Red Blood Count 4.47 M/mm3 (4.2-5.4); White Blood Count 5.4 K/mm3 (4.4-11.0)
[2022-03-19 12:45] LABS: AST(SGOT) 11 U/L (15-37); Alanine Aminotransfer ALT/SGPT 15 U/L (13-56); Albumin, Serum 3.8 g/dL (3.2-5.0); Alkaline Phosphatase 76 U/L (45-117); Anion Gap 5 (5-15); BUN 20 mg/dL (7-18); BUN/Creat Ratio 24.6 RATIO (10-20); CRP < 2.90 mg/L (0.0-3.0); Calcium,Total 9.4 mg/dL (8.5-10.1); Chloride 106 mmol/L (98-107); Creatinine, Serum 0.81 mg/dL (0.55-1.02); EST Glomerular Filtration Rate 72 mL/min (>60); Est Glom Filt Rate - Afr Amer 87 mL/min (>60); Globulin 3.7 g/dL (2.2-4.2); Glucose 82 mg/dL (74-106); LDH 155 U/L (84-246); Potassium 3.7 mmol/L (3.5-5.1); Protein, Total 7.5 g/dL (6.4-8.2); Sodium Level 142 mmol/L (136-145)
[2022-03-20 15:08] LABS: Anti-Centromere B Ab <0.2 AI (0.0-0.9); Anti-Chromatin <0.2 AI (0.0-0.9); Anti-Jo <0.2 AI (0.0-0.9); Anti-Scleroderma-70 AB <0.2 AI (0.0-0.9); RNP Ab 0.4 AI (0.0-0.9); SJOGREN'S Anti-SS-A test 4.3 AI (0.0-0.9); SJOGREN'S Anti-SS-B test < 0.2 AI (0.0-0.9); Smith Ab 0.2 AI (0.0-0.9)
[2022-03-20 16:09] LABS: Endomysial Antibody IgA Negative (Negative)
[2022-03-20 16:29] LABS: Anti-dsDNA Ab 6 IU/mL (0-9)
[2022-03-20 16:30] LABS: Immunoglobulin A 288 mg/dL (64-422); t-Transglutaminase IgA <2 U/mL (0-3)
[2022-03-26 16:09] LABS: Albumin 3.9 g/dL (2.9-4.4); Alpha-1-Globulins 0.2 g/dL (0.0-0.4); Alpha-2-Globulins 0.7 g/dL (0.4-1.0); Cytoplasmic Ab (C-ANCA) <1:20 titer (Neg:<1:20); Gamma Globulin 1.1 g/dL (0.4-1.8); Immunoglobulin A 282 mg/dL (64-422); Immunoglobulin G 1027 mg/dL (586-1602); Immunoglobulin M 124 mg/dL (26-217); PROEL- TOTAL PROTEIN 6.9 g/dL (6.0-8.5)
[2022-03-27 12:33] LABS: Gastrin, Serum 69 pg/mL (0-115); Immunoglobulin E 22 IU/mL (6-495); Perinuclear Ab (P-ANCA) <1:20 titer (Neg:<1:20)
== END | disposition home or self-care (01) ==
LOC: LAB 11:06
PROVIDERS: PCP Family Medicine; Visit Provider Internal Medicine Gastroenterology
DX: K21.9 Gastro-esophageal reflux disease without esophagitis (principal); E11.9 Type 2 diabetes mellitus without complications; M53.9 Dorsopathy, unspecified
CPT/HCPCS: 36415; 80053; 82784; 82785; 82941; 83036; 83516; 83615; 84165; 85025; 85652; 86140; 86225; 86235; 86255; 86256; 86334

== ENCOUNTER → 2022-04-16 | Outpatient (CLI) | payer MEDICARE, OTHER, SELFPAY ==
--- NOTE | 2022-04-16 12:39 | NM_ITS ---
CLINICAL: 81-year-old female with history of abdominal pain, gastroesophageal reflux disease. SEMI-SOLID PHASE 99m Tc SULFUR COLLOID GASTRIC EMPTYING STUDY COMPARISON: None available FINDINGS: The patient was administered 1.0 mCi of 99m Tc sulfur colloid mixed with oatmeal and consumed per os. Image acquisitions in the anterior-posterior projections were obtained for 60 minutes. There is prompt visualization of the stomach. There is no gastroesophageal reflux identified. The T ? emptying was calculated to be 31.08 minutes, (Normal: 12-56 minutes). NM/Gastric Emptying Study IMPRESSION: 1. NORMAL 99m Tc sulfur colloid semi-solid phase (oatmeal) gastric emptying imaging examination. A. There is normal and preserved semi-solid phase gastric emptying compared to normal controls. (Loco et al, J Nucl Med Tech 38: 186, 2010). Electronically Signed: Andres Valdez, at 21:48 EDT ,
== END | disposition home or self-care (01) ==
LOC: NM 12:31
PROVIDERS: PCP Family Medicine; Referring Provider Internal Medicine Gastroenterology; Visit Provider Internal Medicine Gastroenterology
DX: K31.84 Gastroparesis (principal); K21.9 Gastro-esophageal reflux disease without esophagitis
CPT/HCPCS: 78264; A9541

== ENCOUNTER → 2023-06-30 | Outpatient (CLI) | payer MEDICARE, OTHER, SELFPAY ==
[2023-06-30 13:55] LABS: Bacteria 0 SEEN /hpf (None Seen); Mucous, Urine 0 SEEN /hpf (<or=2+); Red Blood Cells-Urine 0 SEEN /hpf (0-5)
[2023-06-30 15:05] LABS: Absolute Lymphocyte Count 1.46 X10^3/uL (0.83-4.51); Absolute Neutrophil Count 3.5 X10^3/uL (2.0-7.7); Basophil# 0.08 X10^3/uL; Basophil% 1.4 % (0-1); Eosinophil# 0.26 X10^3/uL; Eosinophils% 4.4 % (0-5); Hematocrit 39.7 % (37-47); Hemoglobin 12.6 g/dL (12.0-15.0); Lymphocyte # 1.46 X10^3/ul (0.83-4.51); Lymphocyte % 24.7 % (19-41); Mean Corp Hgb Conc 31.7 g/dL (32-36); Mean Corpuscular Hgb 29.4 pg (27.0-32.0); Mean Corpuscular Volume 92.5 fL (81-99); Mean Platelet Vol. 11.7 fl (6.2-12.0); Monocyte# 0.56 X10^3/uL; Monocyte% 9.5 % (0-10); NRBC Flagged by Analyzer 0 % (0-5); Neutrophil # 3.53 X10^3/uL (2.7-7.7); Neutrophil % 59.7 % (47-70); Platelet Count 272 K/mm3 (150-450); RBC Distribution Width CV 13.3 % (11.6-14.6); RBC Distribution Width SD 45.3 fl (35.1-43.9); Red Blood Count 4.29 M/mm3 (4.2-5.4); White Blood Count 5.9 K/mm3 (4.4-11.0)
[2023-06-30 15:45] LABS: Color, Urine Yellow (Yellow); Glucose, Dipstick Normal (Normal); Ketone-Dipstick Negative (Negative); Leukocyte Esterase-Dipstick 25 /ul (Negative); Nitrite-Dipstick Negative (Negative); Occult Blood-Urine Negative /ul (Negative); Protein-Dipstick Negative (Negative); Specific Gravity, Urine 1.015 (1.002-1.030); Urine Bilirubin Dipstick Negative (Negative); Urine Clarity Clear (Clear); Urine Urobilinogen Normal (Normal)
[2023-06-30 15:47] LABS: AST(SGOT) 13 U/L (15-37); Alanine Aminotransfer ALT/SGPT 15 U/L (13-56); Albumin, Serum 3.5 g/dL (3.2-5.0); Alkaline Phosphatase 81 U/L (45-117); Anion Gap 4 (5-15); BUN 20 mg/dL (7-18); BUN/Creat Ratio 23.2 RATIO (10-20); Chloride 107 mmol/L (98-107); Creatinine, Serum 0.86 mg/dL (0.55-1.02); EST Glomerular Filtration Rate 67 mL/min (>60); Est Glom Filt Rate - Afr Amer 81 mL/min (>60); Globulin 3.6 g/dL (2.2-4.2); Glucose 102 mg/dL (74-106); Potassium 4.2 mmol/L (3.5-5.1); Protein, Total 7.1 g/dL (6.4-8.2); Sodium Level 140 mmol/L (136-145)
[2023-06-30 16:23] LABS: Squamous Epithelial Cells - UA 0-5 SEEN /hpf (5-10); White Blood Cells 0-5 SEEN /hpf (0-5)
== END | disposition home or self-care (01) ==
LOC: BIMLAB 13:54
PROVIDERS: PCP Family Medicine; Visit Provider Family Medicine
DX: Z92.89 Personal history of other medical treatment (principal); M53.9 Dorsopathy, unspecified; I10 Essential (primary) hypertension
CPT/HCPCS: 36415; 80053; 81001; 85025

== ENCOUNTER → 2023-09-18 | Outpatient (CLI) | payer MEDICARE, OTHER, SELFPAY ==
--- NOTE | 2023-09-18 09:11 | US_ITS ---
STUDY: ULTRASOUND - URINARY BLADDER REASON FOR EXAM: Female, 83 years old. Urgency TECHNIQUE: Ultrasound evaluation of the urinary bladder was performed with real-time and static smallwood-scale imaging. COMPARISON: None. FINDINGS: There is no right UVJ calculus. There is a visualized right ureteral jet. There is no left UVJ calculus. There is a visualized left ureteral jet. The distended volume of the urinary bladder is 82 ml. The empty volume of the urinary bladder is 47 ml. The bladder wall is within normal limits. The bladder wall measures 5 mm. There is no demonstrated bladder wall mass lesion. There are no demonstrated bladder calculi. US/Post Void Residual Bladder IMPRESSION: Postvoid residual of 47 ml. Electronically Signed: Niko Carrasquillo MD at 9:54 EDT ,
== END | disposition home or self-care (01) ==
LOC: US 09:11
PROVIDERS: PCP Family Medicine; Referring Provider Family Medicine; Visit Provider Family Medicine
DX: R30.0 Dysuria (principal)
CPT/HCPCS: 51798

== ENCOUNTER → 2024-04-07 | Outpatient (CLI) | payer MEDICARE, OTHER, SELFPAY | END | disposition home or self-care (01) | LOC: LABSPEC 15:25 | PROVIDERS: PCP Family Medicine; Referring Provider Nurse Practitioner Family; Visit Provider Nurse Practitioner Family | DX: N89.8 Other specified noninflammatory disorders of vagina (principal) | CPT/HCPCS: 87070; 87205 ==

== ENCOUNTER → 2024-06-08 | Outpatient (CLI) | payer MEDICARE, OTHER, SELFPAY ==
[2024-06-08 12:17] LABS: Mucous, Urine 0 SEEN /hpf (<or=2+)
[2024-06-08 15:41] LABS: Absolute Lymphocyte Count 1.54 X10^3/uL (0.83-4.51); Absolute Neutrophil Count 3.7 X10^3/uL (2.0-7.7); Basophil# 0.05 X10^3/uL; Basophil% 0.8 % (0-1); Eosinophil# 0.24 X10^3/uL; Eosinophils% 3.9 % (0-5); Hematocrit 42.1 % (37-47); Hemoglobin 13.5 g/dL (12.0-15.0); Lymphocyte # 1.54 X10^3/ul (0.83-4.51); Lymphocyte % 25.2 % (19-41); Mean Corp Hgb Conc 32.1 g/dL (32-36); Mean Corpuscular Hgb 29.3 pg (27.0-32.0); Mean Corpuscular Volume 91.3 fL (81-99); Monocyte# 0.59 X10^3/uL; Monocyte% 9.6 % (0-10); NRBC Flagged by Analyzer 0 % (0-5); Neutrophil # 3.68 X10^3/uL (2.7-7.7); Neutrophil % 60.2 % (47-70); Platelet Count 274 K/mm3 (150-450); RBC Distribution Width CV 14.4 % (11.6-14.6); RBC Distribution Width SD 48.1 fl (35.1-43.9); Red Blood Count 4.61 M/mm3 (4.2-5.4); White Blood Count 6.1 K/mm3 (4.4-11.0)
[2024-06-08 15:57] LABS: Color, Urine Yellow (Yellow); Glucose, Dipstick Normal (Normal); Ketone-Dipstick Negative (Negative); Leukocyte Esterase-Dipstick Negative /ul (Negative); Nitrite-Dipstick Negative (Negative); Occult Blood-Urine Negative /ul (Negative); Protein-Dipstick Negative (Negative); Urine Bilirubin Dipstick Negative (Negative); Urine Clarity Sl. Cloudy (Clear); Urine Urobilinogen Normal (Normal); Urine pH 6.5 (5.0 - 8.0)
[2024-06-08 16:03] LABS: AST(SGOT) 18 U/L (15-37); Alanine Aminotransfer ALT/SGPT 20 U/L (13-56); Albumin, Serum 3.8 g/dL (3.2-5.0); Alkaline Phosphatase 82 U/L (45-117); Anion Gap 4 (5-15); BUN 15 mg/dL (7-18); BUN/Creat Ratio 17.9 RATIO (10-20); Calcium,Total 9.6 mg/dL (8.5-10.1); Chloride 107 mmol/L (98-107); Creatinine, Serum 0.84 mg/dL (0.55-1.02); EST Glomerular Filtration Rate 69 mL/min (>60); Est Glom Filt Rate - Afr Amer 84 mL/min (>60); Globulin 3.9 g/dL (2.2-4.2); Glucose 80 mg/dL (74-106); Potassium 4.3 mmol/L (3.5-5.1); Protein, Total 7.7 g/dL (6.4-8.2); Sodium Level 140 mmol/L (136-145)
[2024-06-08 20:03] LABS: Red Blood Cells-Urine 0-5 SEEN /hpf (0-5); White Blood Cells 0-5 SEEN /hpf (0-5)
[2024-06-08 20:04] LABS: Squamous Epithelial Cells - UA 0-5 SEEN /hpf (5-10)
[2024-06-08 20:05] LABS: Bacteria RARE /hpf (None Seen)
[2024-06-09 00:48] LABS: Vitamin D,25 Hydroxy 10.5 ng/mL
== END | disposition home or self-care (01) ==
LOC: BIMLAB 12:09
PROVIDERS: PCP Family Medicine; Referring Provider Family Medicine; Visit Provider Family Medicine
DX: I10 Essential (primary) hypertension (principal); R30.0 Dysuria; M85.80 Other specified disorders of bone density and structure, unspecified site
CPT/HCPCS: 36415; 80053; 81001; 82306; 85025

== ENCOUNTER → 2025-03-08 | Outpatient (CLI) | payer MEDICARE, OTHER, SELFPAY ==
[2025-03-08 15:23] LABS: Hematocrit 39.5 % (37-47); Hemoglobin 12.9 g/dL (12.0-15.0); Immature Granulocytes Count 0.010 X10^3/uL (0.0-0.0); Mean Corp Hgb Conc 32.7 g/dL (32-36); Mean Corpuscular Volume 89.4 fL (81-99); Mean Platelet Vol. 11.7 fl (6.2-12.0); NRBC Flagged by Analyzer 0 % (0-5); Platelet Count 273 K/mm3 (150-450); RBC Distribution Width CV 14.7 % (11.6-14.6); RBC Distribution Width SD 48.0 fl (35.1-43.9); Red Blood Count 4.42 M/mm3 (4.2-5.4); White Blood Count 5.4 K/mm3 (4.4-11.0)
[2025-03-08 16:05] LABS: Anion Gap 12 (5-15); BUN 16 mg/dL (4-19); BUN/Creat Ratio 19.1 RATIO (10-20); Calcium,Total 9.7 mg/dL (7.6-11.0); Carbon Dioxide 26.5 mmol/L (21.0-32.0); Chloride 101 mmol/L (98-108); Glucose 73 mg/dL (70-99); Potassium 4.6 mmol/L (3.3-5.1); Vitamin D,25 Hydroxy 31.9 ng/mL (30-100)
== END | disposition home or self-care (01) ==
LOC: BIMLAB 11:56
PROVIDERS: PCP Family Medicine; Referring Provider Family Medicine; Visit Provider Family Medicine
DX: E55.9 Vitamin D deficiency, unspecified (principal); R53.83 Other fatigue
CPT/HCPCS: 36415; 80048; 82306; 84443; 85025

== ENCOUNTER 2025-04-03 08:54 | Emergency (ER) | payer MEDICARE, OTHER, SELFPAY ==
[2025-04-03 08:56] VITALS: BP 163/82; PULSE 67; RESP 18; TEMP 36.5; O2SAT 93; BMI 29.2
[2025-04-03 09:01] VITALS: O2SAT 93
--- NOTE | 2025-04-03 09:47 | CT_ITS ---
PROCEDURE: CTA CHEST W/WO CONTRAST 04/03/2025 REASON FOR EXAM: RULE OUT PE, HEMOPTYSIS TECHNIQUE: Procedure Code: [id number] Modality: CT Procedure: CTA CHEST W/WO CONTRAST Multiplanar Sagittal and Coronal images were obtained. 3D post processing was performed CONTRAST: Isovue-300 VOLUME: 98 mL One or more dose reduction techniques were used (e.g., Automated exposure control, adjustment of the mA and/or kV according to patient size, use of iterative reconstruction technique). RADIATION DOSE SUMMARY: CTDlvol: 27 mGy DLP: 432 mGycm COMPARISON: None # of known CTs in the past 12 months: 0 # of known Cardiac Nuclear Medicine Studies in the past 12 months: 0 FINDINGS: Thoracic Aorta: Mild atherosclerotic plaque. A bovine arch is present, a normal variant. Heart: Mildly enlarged. No pericardial effusion. Mild coronary artery atherosclerosis involving the right coronary, lad and circumflex. Pulmonary Vessels: The timing and quality of the contrast bolus is diagnostic. There is no evidence of acute or chronic pulmonary embolus. Hardware: Clear Lymph nodes: None appear enlarged Lungs and Airways: Very mild small airways disease posterior right upper lobe. Some mucous is seen in the right mainstem bronchus, segmental bronchi, interlobar bronchus and lower lobes. Some small airways disease is also seen in the right middle lobe and right lower lobe. Pleura: No pleural effusion or pneumothorax. Upper Abdomen: Sliding hiatus hernia. Left hepatic lobe cyst. Smaller cyst posterior segment right hepatic lobe. Circumaortic left renal vein. Bones: Decreased bone mineralization. Multilevel degenerative disc disease, marginal spurring. CT/CTA Chest W/WO Contrast IMPRESSION: 1. No evidence of acute or chronic pulmonary embolus. 2. Mucous is seen in the right mainstem bronchus and some of the segmental bro nchi. There is some associated small airways disease in the right upper lobe, right middle lobe and right lower lobe likely related to the mucous. Infectious causes are favored less but not excluded.. Reading Location: [id number]
[2025-04-03 10:12] LABS: Hematocrit 39.4 % (37-47); Hemoglobin 13.6 g/dL (12.0-15.0); Immature Granulocytes Count 0.010 X10^3/uL (0.0-0.0); Mean Corp Hgb Conc 34.5 g/dL (32-36); Mean Corpuscular Volume 86.2 fL (81-99); Mean Platelet Vol. 10.8 fl (6.2-12.0); NRBC Flagged by Analyzer 0 % (0-5); Platelet Count 241 K/mm3 (150-450); RBC Distribution Width CV 14.6 % (11.6-14.6); RBC Distribution Width SD 45.7 fl (35.1-43.9); Red Blood Count 4.57 M/mm3 (4.2-5.4); White Blood Count 5.3 K/mm3 (4.4-11.0)
--- NOTE | 2025-04-03 10:19 | EX.ED.DYSGE1 ---
HPI History of Present Illness Chief Complaint: Cough Narrative Narrative: Patient is a 84-year-old female presenting to the emergency department for episodes of hemoptysis. Patient has a past medical history of Boone's esophagus, vertigo, high blood pressure, GERD. Patient states this is never happened to her before. States that she feels like she can feel a little bit of blood in the back of her sinuses. She denies chest pain or shortness of breath. Denies abdominal pain, nausea, vomiting, diarrhea, hematemesis, hematochezia or melena. Denies any dysuria or hematuria. Denies any recent fever or chills. She is denying any URI type symptoms. Denies any lightheadedness or dizziness. She describes the amount of hemoptysis is small amounts of blood tinged sputum. No large amounts. Denies recent travel, hospitalizations or surgeries. Denies any history of DVT or PE. Denying any smoking history. She is not on any oral anticoagulation. [facility] Medical History Chronic female pelvic pain Bladder disease Injury of head and neck Non-smoker Leg cramps History of stress test Hypertension Vertigo Bladder prolapse GERD (gastroesophageal reflux disease) High blood pressure Back problem Home Medications ?Medication ?Instructions ?Recorded ?Last Taken ?Type ascorbate calcium (vitamin C) 500 500 mg PO DAILY SUPPLEMENT 10/09/20 Unknown History mg tablet d-mannose 500 mg capsule 500 mg PO DAILY 10/09/20 04/02/25 History cholecalciferol (vitamin D3) 25 25 mcg PO QDAY SUPPLEMENT 09/07/24 04/02/25 History mcg (1,000 unit) capsule amlodipine 5 mg tablet 5 mg PO QHS for blood pressure #90 03/08/25 04/02/25 Rx TABLETS lansoprazole 30 mg capsule,delayed 30 mg PO DAILY GERD #90 caps 03/08/25 04/03/25 Rx release sertraline 50 mg tablet 50 mg PO QDAY MOOD #90 tabs 03/08/25 04/02/25 Rx valsartan 160 1 tab PO QHS HTN #90 tabs 03/08/25 04/02/25 Rx mg-hydrochlorothiazide 12.5 mg tablet methenamine hippurate 1 gram tablet 1 g PO BID RECURRENT UTI #180 tabs 03/20/25 04/02/25 Rx albuterol sulfate 90 mcg/actuation 1 puff inhalation Q6H #8.5 grams 04/03/25 Unknown Rx aerosol inhaler (Ventolin HFA) azithromycin 250 mg tablet See Rx Instructions PO .COMPLEX #6 04/03/25 Unknown Rx (Zithromax Z-Parviz) tabs Allergy/AdvReac Type Severity Reaction Status Date / Time cephalexin (From Keflex) Allergy Swelling Verified 04/03/25 08:58 cephaeline AdvReac Unknown did not Verified 04/03/25 08:58 work Family History Mother Anemia Heart disease Hypertension Father Heart disease Grandmother Hypertension Brother Hypertension 3 brothers Surgical History History of anterior colporrhaphy H/O rectocele repair H/O midurethral sling procedure History of total vaginal hysterectomy (TVH) History of esophagogastroduodenoscopy (EGD) History of total hysterectomy S/P dilation and curettage History of lumpectomy of left breast Social History Smoking Status: Never smoker alcohol intake: current details: occasionally substance use type: does not use caffeine: Yes what type of physical activity do you participate in: none seatbelt use: always do you feel safe at home: Yes additional social history: ROS ROS ED ROS Narrative see HPI EXAM Physical Exam Narrative Exam Narrative: Vital signs: Reviewed General: Alert and oriented x 3. No acute distress HEENT: Head is normocephalic and atraumatic, sinuses nontender, pupils equal round and reactive. Nares are patent. Oropharynx and throat exams normal. Neck: Supple without lymphadenopathy nontender Cardiovascular: Regular rate and rhythm, no murmurs. No rubs or gallops. Normal S1 and S2 Respiratory: Clear to auscultation bilaterally. No wheezes, rales, rhonchi Abdominal: Soft and nontender. Normal bowel sounds. No guarding or rebound. Nonsurgical abdomen Extremities: No lower extremity edema. No tenderness. No bruising. Normal range of motion. Normal sensation. Skin: No rash or redness. Neurological: Cranial nerves II through XII are grossly intact. Normal strength and sensation. Normal cerebellar function The rest of the physical exam is unremarkable Const Vital Signs: 04/03/25 08:56 04/03/25 09:01 04/03/25 10:54 Temperature 97.7 F L Temperature Source Oral Pulse Rate 67 67 Respiratory Rate 18 18 Respiratory Effort Normal Non-Labored Respiratory Depth Normal Respiratory Pattern Normal Blood Pressure 163/82 H 151/64 H Blood Pressure Mean 109 93 Pulse Ox 93 97 Oxygen Delivery Method Room Air Room Air 04/03/25 12:00 04/03/25 14:00 Temperature 98.1 F Temperature Source Pulse Rate 73 85 Respiratory Rate 19 H 18 Respiratory Effort Respiratory Depth Respiratory Pattern Blood Pressure 127/92 H 139/93 H Blood Pressure Mean 103 108 Pulse Ox 94 92 Oxygen Delivery Method MDM MDM MDM Narrative Medical decision making narrative: Patient is an 84-year-old female presenting to emergency department for small amounts of hemoptysis. Patient was seen and examined. Vitals are stable. Patient resting bed comfortably in no acute distress. Differential includes but is not limited to: PE, bronchitis, irritation of the nasal canal or posterior oropharynx CBC with no leukocytosis and a normal hemoglobin. CMP with no significant abnormalities. PT and PTT within normal limits. CT of the chest shows no evidence of acute or chronic pulmonary embolus. Mucous is seen in the right mainstem bronchus and some of the segmental bronchi. There is some associated small airways disease in the right upper lobe, right middle lobe and right lower lobe likely related to the mucous. Infectious causes are favored less but not excluded. This is likely consistent with acute bronchitis. Given her age and the read of possible infectious cause on CT I will place the patient on a short course of antibiotics. I will also prescribe her a albuterol inhaler to use as needed if she develops any shortness of breath or wheezing which she does not have here. I discussed the findings and likely diagnosis with the patient and family at bedside. All questions were answered. I explained that if the patient has any episodes of increased mopped assist she needs to return to the emergency department immediately. Patient discharged from the Emergency Department. I do not feel that the patient's evaluation reveals any acute reason for admission at this time. I instructed them to either follow-up with their primary care physician or promptly return to the Emergency Department for reevaluation should symptoms worsen or new symptoms develop. I explained what symptoms would indicate the need to return to the emergency department. Shared decision making was used. The patient voiced understanding of the treatment plan and is agreeable with it. History & Record Review Discussion w/independent historian: Patient and Family Lab Data Attestation: I reviewed the patient's lab results. Labs: Laboratory Results - last 24 hr 04/03/25 04/03/25 10:00 11:00 WBC 5.3 RBC 4.57 Hgb 13.6 Hct 39.4 MCV 86.2 MCH 29.8 MCHC 34.5 RDW Std Deviation 45.7 H RDW Coeff of Catina 14.6 Plt Count 241 MPV 10.8 Immature Gran % (Auto) 0.200 Neut % (Auto) 74.0 H Lymph % (Auto) 16.0 L [place] % (Auto) 6.4 Eos % (Auto) 2.6 Baso % (Auto) 0.8 Absolute Neuts (auto) 3.9 Absolute Lymphs (auto) 0.85 Nucleated RBC % 0 PT 12.8 INR 0.9 APTT 24.3 Sodium Cancelled 137 Potassium Cancelled 3.5 Chloride Cancelled 102 Carbon Dioxide Cancelled 25.0 Anion Gap Cancelled 10 BUN Cancelled 13 Creatinine Cancelled 0.66 L Estim Creat Clear Calc Cancelled 56.56 Est GFR (MDRD) Non-Af Cancelled 87 BUN/Creatinine Ratio Cancelled 19.3 Glucose Cancelled 112 H Calcium Cancelled 8.9 Total Bilirubin Cancelled 0.46 AST Cancelled 15 ALT Cancelled 6 Alkaline Phosphatase Cancelled 64 Total Protein Cancelled 6.1 Albumin Cancelled 3.6 Globulin Cancelled 2.5 Albumin/Globulin Ratio Cancelled 1.4 Radiography Diagnostic Testing: Clinical Impression(s) from Imaging Studies Chest CTA 04/03/25 09:47 IMPRESSION: 1. No evidence of acute or chronic pulmonary embolus. 2. Mucous is seen in the right mainstem bronchus and some of the segmental bronchi. There is some associated small airways disease in the right upper lobe, right middle lobe and right lower lobe likely related to the mucous. Infectious causes are favored less but not excluded.. Reading Location: [facility] Discharge Plan Triage Chief Complaint: Cough ED Provider: Delilah Churchill Dx/Rx/DC Orders Clinical Impression: Bronchitis, Hemoptysis Instructions: Acute Bronchitis, Using an Inhaler Prescriptions: New azithromycin [Zithromax Z-Parviz] 250 mg tablet See Rx Instructions .ROUTE .COMPLEX Qty: 6 0RF Rx Instructions: For 250 mg dose pack: take 500 mg today (day 1), then 250 mg for 4 days (days 2-5) albuterol sulfate [Ventolin HFA] 90 mcg/actuation HFA aerosol inhaler 1 puff inhalation Q6H Qty: 8.5 0RF No Action ascorbate calcium (vitamin C) 500 mg tablet 500 mg PO DAILY d-mannose 500 mg capsule 500 mg PO DAILY cholecalciferol (vitamin D3) 25 mcg (1,000 unit) capsule 25 mcg PO QDAY sertraline 50 mg tablet 50 mg PO QDAY Qty: 90 1RF Rx Instructions: to take in the evening amlodipine 5 mg tablet 5 mg PO QHS Qty: 90 3RF lansoprazole 30 mg capsule,delayed release(DR/EC) 30 mg PO DAILY Qty: 90 3RF valsartan-hydrochlorothiazide 160-12.5 mg tablet 1 tab PO QHS Qty: 90 3RF methenamine hippurate 1 gram tablet 1 g PO BID Qty: 180 0RF Primary Care Provider: Jose Rodarte Referrals: Jose Rodarte, DO [Primary Care Provider, Internal Medicine] - As soon as possible Activity Restrictions/Additional Instructions: Take the antibiotic as prescribed. Use the inhaler every 6 hours as needed for shortness of breath and wheezing. If you have any increasing amounts of blood in your sputum you need to return to the emergency department. Your evaluation in the Emergency Department did not reveal any acute reason for admission. However, I want to emphasize that you may be early in the course of a disease process or illness even if it is not present. For this reason you should follow-up within 24 hours for reevaluation with either your primary care physician or if necessary back here in the Emergency Department. You should return to the Emergency Department immediately if your symptoms worsen or new symptoms develop. Print Language: Czech Disposition Disposition: Home, Self Care Discharge Date/Time: 04/03/25 14:18
[2025-04-03 10:21] LABS: Prothrombin Time (Protime)PT. 12.8 SECONDS (11.7-14.9)
[2025-04-03 10:22] LABS: Partial Thromboplast Time 24.3 Seconds (24.1-36.2)
[2025-04-03 10:54] VITALS: BP 151/64; PULSE 67; RESP 18; O2SAT 97
[2025-04-03 11:50] LABS: AST(SGOT) 15 U/L (<=31); Alanine Aminotransfer ALT/SGPT 6 U/L (<=34); Albumin, Serum 3.6 g/dL (3.4-4.8); Alkaline Phosphatase 64 U/L (35-104); Anion Gap 10 (5-15); BUN 13 mg/dL (4-19); BUN/Creat Ratio 19.3 RATIO (10-20); Calcium,Total 8.9 mg/dL (7.6-11.0); Carbon Dioxide 25.0 mmol/L (21.0-32.0); Chloride 102 mmol/L (98-108); Estimated Creatinine Clearance 56.56 ml/min (50-250); Globulin 2.5 g/dL (2.2-4.2); Glucose 112 mg/dL (70-99); Potassium 3.5 mmol/L (3.3-5.1)
[2025-04-03 12:00] VITALS: BP 127/92; PULSE 73; RESP 19; O2SAT 94
[2025-04-03 14:00] VITALS: BP 139/93; PULSE 85; RESP 18; TEMP 36.7; O2SAT 92
== END 2025-04-03 14:18 | disposition home or self-care (01) ==
PROVIDERS: Emergency Provider Student in an Organized Health Care Education/Training Program; PCP Family Medicine; Visit Provider Student in an Organized Health Care Education/Training Program
DX: J40 Bronchitis, not specified as acute or chronic (principal); R04.2 Hemoptysis; I10 Essential (primary) hypertension; R05.9 Cough, unspecified; K21.9 Gastro-esophageal reflux disease without esophagitis; Z79.899 Other long term (current) drug therapy; Z90.710 Acquired absence of both cervix and uterus
CPT/HCPCS: 71275; 80053; 85025; 85610; 85730; 99285; Q9967; A4216